=== PATIENT | female | born 1945 | race Caucasian/White ===

== ENCOUNTER → 2016-08-29 | Outpatient (CLI) | payer OTHER ==
[2016-08-29 17:22] LABS: HEMATOCRIT 39.7 % (37-47); MEAN CORPUSCULAR HEMOGLOBIN 29.7 pg (25-34); MEAN PLATELET VOLUME 11.8 fL (7.4-10.4); PLATELET COUNT 207 K/uL (130-400); RED BLOOD COUNT 4.41 M/uL (4.2-5.4); WHITE BLOOD COUNT 6.38 K/uL (4.8-10.8)
[2016-08-29 17:50] LABS: ALT/SGPT 29 U/L (12-78); AST/SGOT 16 U/L (15-37); BLOOD UREA NITROGEN 10 mg/dl (7-18); BUN/CREATININE RATIO 13.5 (10-20); CALCIUM 8.8 mg/dl (8.5-10.1); CARBON DIOXIDE 29 mmol/L (21-32); CHLORIDE 104 mmol/L (98-107); CREATININE 0.74 mg/dl (0.60-1.20); GLUCOSE 92 mg/dl (70-99); POTASSIUM 3.8 mmol/L (3.5-5.1); SODIUM 141 mmol/L (136-145); TRIGLYCERIDES 56 mg/dl (0-150); VERY LOW DENSITY LIPOPROT CALC 11 mg/dl
[2016-08-29 18:00] LABS: ALB/GLOB RATIO 1.1 (0.9-2); ALKALINE PHOSPHATASE 89 U/L (45-117); CHOLESTEROL 119 mg/dl (0-200); CHOLESTEROL/HDL RATIO 2.1; HDL CHOLESTEROL 58 mg/dl; LDL CHOLESTEROL CALCULATED 50 mg/dl; THYROID STIMULATING HORMONE 0.784 uIu/ml (0.300-4.500)
[2016-08-30 05:58] LABS: ESTIMATED AVERAGE GLUCOSE 126 mg/dl; HA1C FLAG Normal (Normal)
== END | disposition home or self-care (01) ==
LOC: C.LABBFT 13:50
PROVIDERS: ATTEND Internal Medicine
DX: J44.9 Chronic obstructive pulmonary disease, unspecified (principal); E78.00 Pure hypercholesterolemia, unspecified; R73.01 Impaired fasting glucose

== ENCOUNTER → 2016-09-17 | Outpatient (CLI) | payer OTHER ==
--- NOTE | 2016-09-18 13:03 | MAMMOGRAPHY REPORT ---
BILATERAL DIGITAL SCREENING MAMMOGRAM WITH CAD: 09/17/2016 CLINICAL HISTORY: Routine screening. Patient has no complaints. TECHNIQUE: Bilateral CC and MLO views were obtained. Current study was also evaluated with a Comput er Aided Detection (CAD) system. COMPARISON: Comparison is made to exams dated: 07/20/2015 mammogram, 07/12/2014 mammogram, and 05/30 mammogram. BREAST COMPOSITION: There are scattered areas of fibroglandular density in both breasts. FINDINGS: There are a few stable microcalcifications in the left breast. Minimal vascular calcifica tion bilaterally. No suspicious mass, architectural distortion or cluster of microcalcifications is seen. IMPRESSION: ACR BI-RADS CATEGORY 1: NEGATIVE There is no mammographic evidence of malignancy. A 1 year screening mammogram is recommended. The p atient will receive written notification of the results. Approximately 10% of breast cancers are not detected with mammography. A negative mammographic repor t should not delay biopsy if a clinically suggestive mass is present. Isabelle Forman M.D. ay/:09/17/2016 16:06:43 Book Salesman: Perri CRUZ(R)(M), [facility] letter sent: Normal 1/2 BI-RADS Code: ACR BI-RADS Category 1: Negative
== END | disposition home or self-care (01) ==
LOC: C.MAMM 15:21
PROVIDERS: ATTEND Internal Medicine
DX: Z12.31 Encounter for screening mammogram for malignant neoplasm of breast (principal)

== ENCOUNTER → 2017-01-25 | Outpatient (CLI) | payer OTHER ==
--- NOTE | 2017-01-25 13:05 | DIAGNOSTIC IMAGING REPORT ---
LEFT POPLITEAL FOSSA ULTRASOUND CLINICAL HISTORY: M71.22 Popliteal cyst, left left popliteal [id number] COMPARISON STUDY: None FINDINGS: There is a 5.7 x 2.5 x 1.0 cm left popliteal cyst. This contains a small amount of complex fluid. No associated color flow. No soft tissue masses. IMPRESSION: Slightly complex 5.7 x 2.5 x 1.0 cm left popliteal cyst. Electronically signed by: Jovanny Christopher M.D. 01/25/2017 1:03 PM Dictated Date/Time: 01/25/2017 1:02 PM
== END | disposition home or self-care (01) ==
LOC: C.ULTR 12:30
PROVIDERS: ATTEND Physician Assistant Medical
DX: M71.22 Synovial cyst of popliteal space [Baker], left knee (principal)

== ENCOUNTER → 2017-02-06 | Outpatient (CLI) | payer OTHER | END | disposition home or self-care (01) | LOC: C.RDSM 13:50 | PROVIDERS: ATTEND Family Medicine Sports Medicine | DX: M25.562 Pain in left knee (principal) ==

== ENCOUNTER → 2017-09-18 | Outpatient (CLI) | payer OTHER ==
--- NOTE | 2017-09-18 15:13 | MAMMOGRAPHY REPORT ---
BILATERAL DIGITAL SCREENING MAMMOGRAM TOMOSYNTHESIS WITH CAD: 09/18/2017 CLINICAL HISTORY: Routine screening. Patient has no complaints. TECHNIQUE: Breast tomosynthesis in addition to standard 2D mammography was performed. Current study was also evaluated with a Computer Aided Detection (CAD) system. COMPARISON: Comparison is made to exams dated: 09/17/2016 mammogram - [facility], 1 09/20/2014 mammogram, 07/12/2014 mammogram, and 06/24/2013 mammogram. BREAST COMPOSITION: There are scattered areas of fibroglandular density in both breasts. FINDINGS: There is a possible area of architectural distortion in the lateral, middle one third of t he left breast, best seen on CC tomosynthesis slice 16/73. This is not identified on the MLO tomosyn thesis images but thought to project in the lower outer quadrant based on the tomosynthesis localizer bar. Additional spot compression tomosynthesis views and possible ultrasound are recommended. No other new suspicious mass, architectural distortion or cluster of microcalcifications is seen. IMPRESSION: ACR BI-RADS CATEGORY 0: INCOMPLETE EVALUATION: NEED ADDITIONAL IMAGING EVALUATION The possible area of architectural distortion in the lateral left breast needs additional evaluation. The patient will be called to schedule an appointment. Approximately 10% of breast cancers are not detected with mammography. A negative mammographic report should not delay biopsy if a clinically suggestive mass is present. Isabelle Forman M.D. ay/:09/18/2017 12:32:15 Insurance Checker: Perri Muñiz, [facility] letter sent: Addl Imaging 0 BI-RADS Code: ACR BI-RADS Category 0: Incomplete Evaluation: Need Additional Imaging Evaluation
== END | disposition home or self-care (01) ==
LOC: C.MAMM 11:12
PROVIDERS: ATTEND Internal Medicine
DX: Z12.31 Encounter for screening mammogram for malignant neoplasm of breast (principal); R92.8 Other abnormal and inconclusive findings on diagnostic imaging of breast

== ENCOUNTER → 2017-10-02 | Outpatient (CLI) | payer OTHER ==
[2017-10-02 17:54] LABS: BASO % 0.4 %; BASO ABS # 0.04 K/uL (0-0.2); EOS % 3.6 %; EOS ABS # 0.33 K/uL (0-0.5); HEMATOCRIT 39.9 % (37-47); HEMOGLOBIN 13.1 g/dL (12.0-16.0); IG# 0.03 K/uL (0.00-0.02); LYMPH % 16.2 %; LYMPH ABS # 1.49 K/uL (1.2-3.4); MEAN CELL VOLUME 91.5 fL (80-100); MEAN CORPUSCULAR HGB CONC 32.8 g/dl (32-36); MEAN PLATELET VOLUME 10.8 fL (7.4-10.4); MONO % 9.6 %; MONO ABS # 0.88 K/uL (0.11-0.59); NEUT % 69.9 %; PLATELET COUNT 193 K/uL (130-400); RED CELL DISTRIBUTION WIDTH CV 13.2 % (11.5-14.5); RED CELL DISTRIBUTION WIDTH SD 44.1 fL (36.4-46.3); WHITE BLOOD COUNT 9.17 K/uL (4.8-10.8)
[2017-10-02 18:16] LABS: ALBUMIN 3.4 gm/dl (3.4-5.0); ALT/SGPT 24 U/L (12-78); BLOOD UREA NITROGEN 11 mg/dl (7-18); CALCIUM 9.1 mg/dl (8.5-10.1); CARBON DIOXIDE 32 mmol/L (21-32); CHOLESTEROL 112 mg/dl (0-200); CREATININE 0.68 mg/dl (0.60-1.20); GLUCOSE 91 mg/dl (70-99); SODIUM 139 mmol/L (136-145)
[2017-10-02 18:26] LABS: ALKALINE PHOSPHATASE 96 U/L (45-117); AST/SGOT 15 U/L (15-37); LDL CHOLESTEROL CALCULATED 50 mg/dl; TOTAL PROTEIN 6.8 gm/dl (6.4-8.2)
[2017-10-03 08:42] LABS: HEMOGLOBIN A1C 6.1 % (4.5-5.6)
== END | disposition home or self-care (01) ==
LOC: C.LABBFT 13:58
PROVIDERS: ATTEND Internal Medicine
DX: R73.01 Impaired fasting glucose (principal); E78.00 Pure hypercholesterolemia, unspecified

== ENCOUNTER → 2017-10-04 | Outpatient (CLI) | payer OTHER ==
--- NOTE | 2017-10-04 13:54 | MAMMOGRAPHY REPORT ---
UNILATERAL LEFT DIGITAL DIAGNOSTIC MAMMOGRAM TOMOSYNTHESIS AND TARGETED LEFT ULTRASOUND: 10/04/2017 CLINICAL HISTORY: Callback from screening mammogram for possible left breast architectural distortion . TECHNIQUE: Breast tomosynthesis in addition to standard 2D mammography was performed. Spot compress ion left CC and MLO 2D and tomosynthesis images were obtained. COMPARISON: Comparison is made to exams dated: 09/18/2017 mammogram, 09/17/2016 mammogram - [facility], 07/20/2015 mammogram, and 07/12/2014 mammogram. BREAST COMPOSITION: There are scattered areas of fibroglandular density in the left breast. FINDINGS: The spot compression views demonstrate a persistent subtle area of architectural distortion seen within the left lateral breast on the CC tomosynthesis images (slice 14/71), possibly projectin g in the superior breast on the MLO view (slice 15/84). Targeted ultrasound was performed of the left lateral breast in the region of the mammographic distor tion. In the left breast at 3:00, approximately 7 cm from the nipple, there is a subtle hypoechoic n on-circumscribed 3 x 4 x 3 mm mass with associated architectural distortion. This corresponds with t he mammographic architectural distortion and is indeterminant. Recommend ultrasound-guided core need le biopsy for further evaluation. IMPRESSION: ACR BI-RADS CATEGORY 4: SUSPICIOUS, TARGETED ULTRASOUND ACR BI-RADS CATEGORY 4: SUSPICIO US Persistent subtle architectural distortion seen mammographically in the left lateral breast on the ad ditional views. A corresponding 4 mm hypoechoic mass with associated architectural distortion is see n within the left 3:00 breast on ultrasound. Findings are indeterminate and ultrasound-guided core n eedle biopsy is recommended for further evaluation. The differential includes radial scar versus mal ignancy. A phone call was made to the physician's office to confirm faxed results were received. The patient has been verbally notified of the results. I will leave it up to the patient's referring provider if she can safely discontinue baby aspirin for 5-7 days prior to the procedure. Approximately 10% of breast cancers are not detected with mammography. A negative mammographic report should not delay biopsy if a clinically suggestive mass is present. Shauna Davila M.D. ah/:10/04/2017 10:27:03 Concrete Saw Operator: Perri CRUZ(Ky)(M), [facility] letter sent: Abnormal / BI-RADS Code: ACR BI-RADS Category 4: Suspicious Ultrasound BI-RADS: ACR BI-RADS Category 4: Suspici ous
== END | disposition home or self-care (01) ==
LOC: C.MAMM 09:48
PROVIDERS: ATTEND Internal Medicine
DX: R92.8 Other abnormal and inconclusive findings on diagnostic imaging of breast (principal); N63.20 Unspecified lump in the left breast, unspecified quadrant

== ENCOUNTER → 2017-10-09 | Outpatient (CLI) | payer OTHER ==
--- NOTE | 2017-10-09 10:41 | Discharge Instructions ---
Discharge Instructions Procedure Procedure Date: Oct 09, 2017. Reason for visit: Left Distortion. Discharge Discharge Date: Oct 09, 2017. Discharge Diagnosis: post left breast ultrasound guided core biopsy Medications Restart Stopped Medication(s): May restart Aspirin today Instructions Activity Recommendations: Additional Limitations (see below) Return to School/Work: no limitations Recommended Home Diet: No Limitations Provider Instructions: ACTIVITY RECOMMENDATIONS: * No lifting, pushing, pulling or exercising the affected side for three days. RETURN TO SCHOOL/WORK: * You may return to work/school after the procedure, but do not perform any strenuous activities for 24 to 48 hours. MEDICATIONS: * Tylenol (two 325 mg) every four to six hours if needed for mild pain (if not allergic to Tylenol). DIET: * Resume previous diet. SPECIAL CARE INSTRUCTIONS: * Keep biopsy site dry for 24 hours. May shower after 24 hours, but do not soak (bathe) incision. * May remove Tegaderm (plastic patch) tomorrow AFTER showering. * Leave the steri-strips on for one week. Allow the steri-strips to fall off by themselves. If not off after one week, you may remove them. You may place a Bandaid crosswise over the strips, if desired. * Apply ice 10 minutes on and 10 minutes off as needed. * Wear a bra at bedtime to sleep more comfortably for 2-3 days. * Your referring physician should have the results after approximately 5 to 7 business days. * Call for unusual bleeding, fever, drainage, etc or if you have any questions call [phone] during normal business hours or after hours call Dr Forman, . FOLLOW UP VISIT: Follow-up with Referring Physician as scheduled. Kathleen Cunha Recommendations: Call your doctor if: * Temperature above 101 degrees * Pain not relieved by pain medicine ordered * There is increased drainage or redness from any incision * You have any unanswered questions or concerns. Your Doctors Instructions noted above were prepared by provider Isabelle Forman. Patient Signature Section: Patient Instructions Signature Page Domenica Gordillo Patient (or Guardian) Signature/Date: I have read and understand the instructions given to me by my caregivers. Caregiver/RN/Doctor Signature/Date: The above-named patient and/or guardian has received patient instructions on this date. + Original Patient Signature Page (only) stays with chart. Please make copy for patient.
--- NOTE | 2017-10-09 15:34 | MAMMOGRAPHY REPORT ---
ULTRASOUND GUIDED BIOPSY LEFT BREAST: 10/09/2017 CLINICAL HISTORY: 72-year-old woman presents for biopsy of a 4 mm mass with associated architectural distortion in the 3:00 left breast, correlating with a focal area of mammographic distortion. COMPARISON: Comparison is made to exams dated: 10/04/2017 mammogram, 10/04/2017 ultrasound, 09/18/2017 ma mmogram - [facility], 07/20/2015 mammogram, 09/17/2016 mammogram - [facility], and 07/12/2014 mammogram. PATIENT CONSENT: The procedure, risks and benefits were discussed with the patient and informed conse nt was obtained both verbally and in writing. Specific risks to this procedure include: bleeding, in fection, puncture of adjacent structure, nontarget biopsy, sampling error, pain, metal allergy and me dication reaction. PROCEDURE DESCRIPTION: A time out was performed and the left breast was agreed as the site of biopsy. The skin was prepped and draped in the usual sterile fashion. The subtle irregular 4 mm isoechoic ma ss with associated architectural distortion in the 3:00 left breast was chosen as the target for biop sy. Subcutaneous and intraparenchymal 1% buffered lidocaine, with and without epinephrine, was admini stered as local anesthesia. A skin incision was made. Through the incision, for samples were taken w ith a 12 gauge Celero biopsy device. A ribbon shaped metallic marker was placed at the biopsy site. H emostasis was achieved after manual compression. The patient tolerated the procedure well and there w as no immediate complication. The samples were sent to the pathology department in an appropriately labeled container. Postprocedure left CC and MLO tomosynthesis images were obtained. The ML view is slightly degraded b y patient motion. However, based on the CC projection, the biopsy marker clip aligns with the focal mammographic distortion in question. No significant postbiopsy hematoma is seen. IMPRESSION: ULTRASOUND GUIDED BIOPSY Status post ultrasound-guided core biopsy of a subtle 4 mm mass with associated architectural distort ion in the 3:00 left breast, with ribbon-shaped biopsy marker clip placed at the site. The patient will receive notification of the biopsy results from her referring physician. Isabelle Forman M.D. ay/:10/09/2017 13:27:09 Cash Register Operator: Linda INGRAM)(Raya), [facility]
--- NOTE | 2017-10-09 15:38 | MAMMOGRAPHY REPORT ---
UNILATERAL LEFT DIGITAL DIAGNOSTIC MAMMOGRAM TOMOSYNTHESIS: 10/09/2017 CLINICAL HISTORY: Status post ultrasound-guided core biopsy of a small, subtle focal area of architec tural distortion in the 3:00 left breast, 7 cm from the nipple. Please refer to the report from left breast ultrasound-guided core biopsy performed at the same time for full detail. IMPRESSION: POST PROCEDURE IMAGING FOR MARKER PLACEMENT Please refer to the report from left breast ultrasound-guided core biopsy performed at the same time for full detail. Approximately 10% of breast cancers are not detected with mammography. A negative mammographic report should not delay biopsy if a clinically suggestive mass is present. Isabelle Forman M.D. ay/:10/09/2017 10:43:28 Internal Medicine Physician Assistant: Olivia INGRAM)(Raya), [facility] BI-RADS Code: Post Procedure Imaging For Marker Placement
== END | disposition home or self-care (01) ==
LOC: C.MAMM 09:50
PROVIDERS: ATTEND Internal Medicine
DX: R92.8 Other abnormal and inconclusive findings on diagnostic imaging of breast (principal); N64.89 Other specified disorders of breast; N60.92 Unspecified benign mammary dysplasia of left breast

== ENCOUNTER 2017-11-04 08:15 | Inpatient (IN) | payer OTHER ==
[2017-11-01 09:23] VITALS: BMI 41.0
--- NOTE | 2017-11-01 10:04 | PAT Medication Instructions ---
Service Date Nov 01, 2017. Current Home Medication List Acetaminophen (Tylenol), 1,000 MG PO PRN Alendronate/Cholecalciferol (Fosamax+D 70MG/2800 Iu), 1 TABLET PO WK Aspirin (Aspirin Ec), 81 MG PO QAM Atorvastatin (Lipitor), 20 MG PO QAM Calcium Carbonate-Cholecalcife (Caltrate 600+D), 1 TAB PO QAM Fluticasone Prop/Salmeterol (Advair Diskus 500/50 60 Dose), 1 PUFF INH QAM Home O2 Therapy (Oxygen), 2 LITERS NA HS Hydroxyzine Pamoate (Vistaril), 1 CAP PO Q6H PRN for RN Ipratropium Lizemores (Ipratropium Lizemores), 1 VIAL NEB QID Lorazepam (Ativan), 0.5 MG PO prn Metoprolol Succ (Toprol Xl) (Toprol-Xl ), 100 MG PO BID Multivitamin (Multivitamin), 1 TAB PO QAM Omeprazole (Prilosec), 20 MG PO QAM Oxybutynin Chloride (Ditropan), 1 TAB PO BID Medication Instructions For Your Scheduled Surgery -Continue as directed: Alendronate/Cholecalciferol (Fosamax+D 70MG/2800 Iu), 1 TABLET PO WK -Follow your surgeon and primary care doctor's instructions for: Aspirin (Aspirin Ec), 81 MG PO QAM - Hold the following medications the morning of surgery: Calcium Carbonate-Cholecalcife (Caltrate 600+D), 1 TAB PO QAM Multivitamin (Multivitamin), 1 TAB PO QAM Oxybutynin Chloride (Ditropan), 1 TAB PO BID - Take the following medications the morning of surgery with a sip of water: Acetaminophen (Tylenol), 1,000 MG PO PRN (if needed, can be taken up to four hours before surgery) Atorvastatin (Lipitor), 20 MG PO QAM Fluticasone Prop/Salmeterol (Advair Diskus 500/50 60 Dose), 1 PUFF INH QAM Hydroxyzine Pamoate (Vistaril), 1 CAP PO Q6H PRN (if needed) Ipratropium Lizemores (Ipratropium Lizemores), 1 VIAL NEB QID Lorazepam (Ativan), 0.5 MG PO prn (if needed) Metoprolol Succ (Toprol Xl) (Toprol-Xl ), 100 MG PO BID Omeprazole (Prilosec), 20 MG PO QAM - Take the following medications as scheduled the night before surgery: Acetaminophen (Tylenol), 1,000 MG PO PRN (if needed) Home O2 Therapy (Oxygen), 2 LITERS NA HS Hydroxyzine Pamoate (Vistaril), 1 CAP PO Q6H PRN (if needed) Ipratropium Lizemores (Ipratropium Lizemores), 1 VIAL NEB QID Lorazepam (Ativan), 0.5 MG PO prn (if needed) Metoprolol Succ (Toprol Xl) (Toprol-Xl ), 100 MG PO BID Oxybutynin Chloride (Ditropan), 1 TAB PO BID If you have any questions please call us at [phone] or [phone] or [phone]
--- NOTE | 2017-11-01 11:16 | DIAGNOSTIC IMAGING REPORT ---
TWO VIEW CHEST CLINICAL HISTORY: Preoperative examination. FINDINGS: PA and lateral chest radiographs are obtained. No prior studies are available for comparison at the time of dictation. The examination is degraded by portable technique and patient rotation. The heart is enlarged and there is atherosclerotic calcification of the thoracic aorta. The pulmonary vasculature is noncongested. Interstitial thickening is nonspecific and likely chronic. Linear atelectasis is seen at the left lung base. Atelectasis is also suggested at the right lung base. No airspace consolidation is seen typical for pneumonia and there is no large pleural effusion. There is no pneumothorax. The skeletal structures are osteopenic. The bony thorax appears intact. IMPRESSION: Cardiomegaly with no active disease in the chest. Electronically signed by: Kwame Short M.D. 11/01/2017 11:15 AM Dictated Date/Time: 11/01/2017 11:14 AM
[~2017-11-04] VITALS: Ht 152.4 cm; Wt 93.6 kg
[2017-11-04] VITALS (12 sets, daily range): BP systolic 143–187; BP diastolic 54–93; PULSE 54–69; TEMP 36.5–37.1; O2SAT 88–98; Ht 152.4 cm; Wt 93.6 kg
[~2017-11-04 08:15] MED LIST: ACET-1256 PO; ADVIN50/60 INH; ASPI81TA28 PO; ATOR-22 PO; ATRINS NEB; CALC-354 PO; CEFAZOLIN 2000MG IV PUSH 15 ML IV SCH; DTR/5 PO; FSMD/70 PO; HYDR25CA PO; LACTATED RINGER'S 1000ML 1,000 ML IV SCH; LORA-741 PO; METO100T44 PO; MULT-506 PO; OXGN; PRLSR20 PO
[2017-11-04] MEDS ORDERED: FENTANYL CITRATE INJ 50 MCG/1 ML 2 ML VIAL ONE ×3 (11:09→14:10)
[2017-11-04] MEDS ORDERED: MIDAZOLAM HCL 1 MG/ML 2ML VIAL ONE (11:09)
--- NOTE | 2017-11-04 11:22 | History & Physical Bridge Note ---
H&P Re-Evaluation Bridge Note: I have examined the patient, reviewed the History & Physical and in the interval since the performance of the History & Physical I have noted the following changes of clinical significance: Wire localization performed, films reviewed. Patient had pre op clearance by PCP and no issues identified, however anesthesia concerned due to history of chest discomfort with activity. Cardiology consulted, JL Solis assessed and echo performed, deemed appropriate risk for surgery. No other changes noted
[2017-11-04] MEDS ORDERED: BUPIVACAINE 0.5 % 5 MG/1 ML MPF 30ML VIAL ONE (12:31)
[2017-11-04] MEDS ORDERED: SODIUM CHLORIDE 0.9% PF 50 ML VIAL ONE (12:32)
[2017-11-04] MEDS ORDERED: PERFLUTREN LIPID MICROSPHERE (DEFINITY) IV ONE (12:36)
[2017-11-04] MEDS ORDERED: HYDR-5688 PO (12:37)
--- NOTE | 2017-11-04 12:40 | Discharge Instructions ---
Discharge Instructions Date of Service Nov 04, 2017. Admission Reason for Admission: Left Breast Radial Scar W/Hosp Loc Discharge Discharge Diagnosis / Problem: left needle localization Discharge Goals Goal(s): Diagnostic testing Activity Recommendations Activity Limitations: resume your previous activity Shower/Bathe: no limitations . Instructions / Follow-Up Instructions / Follow-Up Dr. Estrada in 1-2 weeks as planned, call [phone] if you have any questions Current Hospital Diet Patient's current hospital diet: Discharge Diet Recommended Diet: Regular Diet Pending Studies Studies pending at discharge: yes List of pending studies: pathology Laboratory Results Hemoglobin A1c Test 10/02/17 14:00 Range/Units Estimated Average Glucose 128 mg/dl Hemoglobin A1c 6.1 H 4.5-5.6 % Lipid Panel Test 10/02/17 14:00 Range/Units Triglycerides Level 65 0-150 mg/dl Cholesterol Level 112 0-200 mg/dl HDL Cholesterol 49 mg/dl Cholesterol/HDL Ratio 2.3 LDL Cholesterol, Calculated 50 mg/dl Medical Emergencies . Who to Call and When: Medical Emergencies: If at any time you feel your situation is an emergency, please call 911 immediately. . Non-Emergent Contact Non-Emergency issues call your: Surgeon Call Non-Emergent contact if: you have a fever, temperature is above 101.5, your pain is not controlled, wound has increased redness, you have any medication questions . "Provider Documentation" section prepared by Patrick Mcmillan. .
[2017-11-04] MEDS ORDERED: ALBUT/IPRATROP 3MG/0.5MG NEB 3 ML VIAL INH ONE (12:45)
--- NOTE | 2017-11-04 13:01 | ECHOCARDIOGRAM REPORT ---
*NOTICE TO RECEIVING LIBERTARIAN AGENCY This information is strictly Confidential and protected under [place] law. [place] law prohibits you from making any further disclosure of this information unless further disclosure is expressly permitted by the written consent of the person to whom it pertains or is authorized by law. A general authorization for the release of medical or other information is not sufficient for this purpose. Hospital accepts no responsibility if the information is made available to any other person, INCLUDING THE PATIENT. Interpretation Summary * Name: DEVEN DE LOS SANTOS Study Date: 11/04/2017 11:59 AM BP: 143/54 mmHg * Patient Location: [facility] HR: 58 * : 1945 (M/d/yyyy) Gender: Female Height: 60 in * Age: 72 yrs Ethnicity: CA Weight: 212 lb * Ordering Physician: Adonis Garcia * Referring Physician: Robin Estrada * Performed By: Manuela Guajardo RDCS * * Reason For Study: CHEST PAIN- PRE OP * BSA: 1.9 m2 * -- Conclusions -- * Technically limited. Images obtained in the upgright position. * There is mild concentric left ventricular hypertrophy. * Left ventricular systolic function is normal. * Aortic valve sclerosis moderate, without significant aortic valvular stenosis. Procedure Details * A complete two-dimensional transthoracic echocardiogram was performed (2D, M-mode, Doppler and color flow Doppler). * The study was technically limited. * The study was technically difficult. * There were technical limitations due to patient'sbody habitus * A contrast injection of Definity was performed to improve assessment of LV function. * Contrast was injected into an intravenous site in the left arm. * One vial of Definity ultrasound contrast was diluted in normal saline to a total volume of 10 ml. A total of '3.5' ml of solution was administered during imaging. * Lot # [id number] of Definity utilized for procedure. * Expiration date 11/14. * The attending nurse who injected the contrast agent was RENA BEDOYA RN. * Technically limited. Images obtained in the upgright position. Left Ventricle * The left ventricle is grossly normal size. * There is mild concentric left ventricular hypertrophy. * Ejection Fraction = 55-60%. * Left ventricular systolic function is normal. * The left ventricular wall motion is normal. Right Ventricle * The right ventricle is not well visualized. Mitral Valve * The mitral valve is grossly normal. * Significant mitral regurgitation is absent. Aortic Valve * Aortic valve sclerosis moderate, without significant aortic valvular stenosis. * The aortic valve is not well visualized. * Trace aortic regurgitation. Pericardium/Pleural * There is no pericardial effusion. Great Vessels * Normal inferior vena cava diameter and respiratory variation suggests normal central venous pressure. MMode 2D Measurements and Calculations IVSd 1.3 cm IVSs 1.8 cm LVIDd 4.2 cm LVIDs 3.0 cm LVPWd 1.3 cm LVPWs 1.8 cm IVS/LVPW 0.94 FS 28.3 % EDV(Teich) 79.8 ml ESV(Teich) 35.9 ml EF(Teich) 55.0 % EDV(cubed) 75.6 ml ESV(cubed) 27.9 ml EF(cubed) 63.1 % % IVS thick 44.3 % % LVPW thick 36.7 % LV mass(C)d 200.2 grams LV mass(C)dI 104.6 grams/m\S\2 LV mass(C)s 222.4 grams LV mass(C)sI 116.2 grams/m\S\2 SV(Teich) 43.9 ml SI(Teich) 22.9 ml/m\S\2 SV(cubed) 47.7 ml SI(cubed) 24.9 ml/m\S\2 ACS 0.78 cm asc Aorta Diam 3.4 cm LVOT diam 1.8 cm LVOT area 2.5 cm\S\2 LVAd ap4 26.4 cm\S\2 LVLd ap4 6.9 cm EDV(MOD-sp4) 85.0 ml EDV(sp4-el) 85.3 ml LVAs ap4 15.8 cm\S\2 LVLs ap4 6.4 cm ESV(MOD-sp4) 33.8 ml ESV(sp4-el) 33.1 ml EF(MOD-sp4) 60.2 % EF(sp4-el) 61.1 % LVAd ap2 26.5 cm\S\2 LVLd ap2 7.2 cm EDV(MOD-sp2) 79.9 ml EDV(sp2-el) 82.3 ml LVAs ap2 15.5 cm\S\2 LVLs ap2 5.9 cm ESV(MOD-sp2) 34.6 ml ESV(sp2-el) 34.9 ml EF(MOD-sp2) 56.7 % EF(sp2-el) 57.6 % LVLd %diff 4.1 % EDV(MOD-bp) 83.7 ml LVLs %diff -9.28 % ESV(MOD-bp) 35.6 ml EF(MOD-bp) 57.5 % SV(MOD-sp4) 51.1 ml SI(MOD-sp4) 26.7 ml/m\S\2 SV(MOD-sp2) 45.3 ml SI(MOD-sp2) 23.7 ml/m\S\2 SV(MOD-bp) 48.2 ml SI(MOD-bp) 25.2 ml/m\S\2 SV(sp4-el) 52.1 ml SI(sp4-el) 27.3 ml/m\S\2 SV(sp2-el) 47.4 ml SI(sp2-el) 24.8 ml/m\S\2 Doppler Measurements and Calculations MV E max vickie 99.3 cm/sec MV A max vickie 43.7 cm/sec MV E/A 2.3 MV dec time 0.19 sec Ao V2 max 201.3 cm/sec Ao max PG 16.6 mmHg Ao max PG (full) 14.0 mmHg Ao V2 mean 140.7 cm/sec Ao mean PG 9.3 mmHg Ao V2 VTI 52.1 cm TAY(V,A) 10 cm\S\2 TAY(V,D) 10 cm\S\2 AI max vickie 192.4 cm/sec AI max PG 14.8 mmHg AI dec slope 105.6 cm/sec\S\2 AI P1/2t 533.6 msec LV V1 max PG 2.6 mmHg LV V1 max 80.9 cm/sec PA V2 max 71.2 cm/sec PA max PG 2.0 mmHg
[2017-11-04] MEDS ORDERED: ROCURONIUM BROMIDE 10 MG/ML 5 ML VIAL IV ONE (13:34)
[2017-11-04] MEDS ORDERED: DEXAMETHASONE SOD INJ 4 MG/ML VIAL ONE (13:34)
[2017-11-04] MEDS ORDERED: SUCCINYLCHOLINE CHLORIDE 20 MG/ML 10 ML VIAL IV ONE (13:34)
[2017-11-04] MEDS ORDERED: ALBUTEROL HFA INHALER 8.5 GM INH ONE (13:34)
--- NOTE | 2017-11-04 13:47 | [facility] Post Operative Brief Note ---
Immediate Operative Summary Operative Date Nov 04, 2017. Pre-Operative Diagnosis Left breast mass Post-Operative Diagnosis Same as preop Procedure(s) Performed Left Breast Wire-Localized Excisional Biopsy Surgeon Dr. Estrada Geographic Information System Analyst Surgeon(s) Moy Wakefield PA-C Estimated Blood Loss 4 cc Findings Consistent with Post-Op Diagnosis Radiology confirmed excision of specimen on x-ray Specimens A: left breast mass- short stitch superior, long stitch lateral (fresh specimen) Drains None Anesthesia Type General Complication(s) none Disposition Accompanied Pt To Recover: no Disposition: Recovery Room / PACU
--- NOTE | 2017-11-04 13:52 | [facility] Operative Report ---
Operative Report Operative Date Nov 04, 2017. Pre-Operative Diagnosis Left breast mass, radial scar Post-Operative Diagnosis Same Procedure(s) Performed Left breast wire localized excisional biopsy Surgeon Dr. Estrada Part Time Flexible Clerk Surgeon(s) Moy Wakefield PA-C Estimated Blood Loss 4 cc Findings Radiology confirmed excision of wire, clip, and specimen on x-ray. Good hemostasis. Specimens A: left breast mass- short stitch superior, long stitch lateral (fresh specimen) Drains None Anesthesia GETA Complication(s) None Disposition Recovery Room / PACU Indications 72-year-old female with left breast mass identified on imaging, core needle biopsy showed radial scar, plan for a left breast wire localized excisional biopsy. The patient had preoperative risk assessment by primary care, however upon arrival to preop there was concern about exertional chest pain. Cardiology consult was obtained prior to surgery. Echocardiogram was performed and cardiology deemed an appropriate risk for surgery without further testing. The risks of the procedure were discussed, all questions were answered, and the patient agreed to proceed with surgery as planned. Description of Procedure The patient had a localization wire placed in radiology prior to surgery. The films were reviewed for incisional planning. The patient was properly identified, consented, and taken to the operating room where she was placed in the supine position. General endotracheal anesthesia was induced. SCDs and a safety belt were placed. Preoperative antibiotics were administered. The patient's bilateral chest was prepped and draped in the standard sterile fashion. Surgical timeout was performed and all parties were in agreement that this was the correct patient and procedure to be performed and we continued as planned. A transverse incision was made on the left and deepened down through the subcutaneous tissue with electrocautery. Flaps were raised in all directions. Wire was delivered into the incision. The breast mass was circumferentially dissected, excised, and passed off the table as specimen. The specimen was oriented. A mammogram was performed of the specimen in radiology and confirmed excision of the wire, clip, and previously imaged abnormality. The wound was irrigated and hemostasis was confirmed. The skin was closed with interrupted 3- 0 Vicryl deep dermal sutures, followed by 4-0 Monocryl running subcuticular suture. Dermabond was placed over the wound. The patient was extubated in the operating room and taken to the PACU where she recovered without apparent incident. All sponge, instrument and needle counts were correct at the conclusion of the procedure. The patient tolerated the procedure well. The physician's medical assistant secretary was present and scrubbed for the entirety of the case. He was essential in positioning the patient, prepping and draping, retraction and exposure, removal of the specimen, closure of the incision, placement of the dressings. I attest to the content of the Intraoperative Record and any orders documented therein. Any exceptions are noted below.
[2017-11-04] MEDS ORDERED: MoRPHine SULFATE 4 MG/ML 1 ML CARP\\VIAL IV PRN (14:00)
[2017-11-04] MEDS ORDERED: ONDANSETRON INJ 2 MG/ML 2 ML VIAL IV PRN ×4 (14:00→21:30)
[2017-11-04] MEDS ORDERED: OXYCODONE/ACETAMINOPHEN 5-325 TAB PO PRN (14:00)
--- NOTE | 2017-11-04 14:01 | CARDIOLOGY CONSULTATION REPORT ---
DATE OF CONSULTATION: 11/04/2017 REASON FOR CONSULTATION: 1. Dyspnea on exertion. 2. Bilateral arm pain with exertion. 3. Cardiac risk factors. 4. Preoperative cardiac evaluation. HISTORY OF PRESENT ILLNESS: Mrs. Gordillo is an obese 72-year-old white female with a history of Hypertension, Hypercholesterolemia, Impaired Fasting Glucose, and COPD (requiring nocturnal oxygen) who presents today for a fine needle aspiration/biopsy of the left breast. Her surgeon is Dr. Estrada. We were consulted because of patient's chronic dyspnea on exertion, and she mentioned some chest pain/bilateral arm pain to Dr. Pichardo, the anesthesiologist. Patient has been limited by chronic dyspnea on exertion related COPD for years now. Over the past 6-12 months, she may be more short-winded than she had been previously, and she does admit to some exertional bilateral arm pain and generalized weakness. Patient states that she gets her shortness of breath if she has to walk a long distance; for example walking from [facility] to the parking lot would produce shortness of breath which would take 10-15 minutes to recover from. As far as the bilateral exertional arm pain, patient is able to walk up her handicap ramp at home, but notices some arm pain if she has to carry something up the ramp. She also notices this when she is running the vacuum shoe cleaner. She will get some arm discomfort bilaterally which does not radiate elsewhere, and is without any associated symptoms. She specifically denies any associated nausea, vomiting, diaphoresis. These symptoms also last for 10-15 minutes and then resolve with resting. Patient had a negative stress test about 5 years ago in [place]. She has never had a cardiac catheterization. Patient specifically denies any exertional chest pain, heaviness, tightness, or pressure. Denies any exertional neck, jaw, or back pain. She denies any shortness of breath at rest, orthopnea, or PND. No palpitations, syncope, or near syncope. MEDICATIONS AT HOME: 1. Lorazepam 0.5 mg daily p.r.n. for anxiety. 2. Advair Diskus 500/50. 3. DuoNeb nebulizers 4 times a day. 4. Omeprazole 20 mg daily. 5. Aspirin 81 mg daily. 6. Calcium with Vitamin D 600 mg. 7. Centrum silver. 8. Atorvastatin 20 mg daily. 9. Metoprolol succinate ER 100 mg b.i.d. 10. Alendronate sodium 70 mg weekly. 11. Oxybutynin 5 mg b.i.d. 12. Hydroxyzine 25 mg every 6 hours as needed. ALLERGIES: TRAMADOL. PAST MEDICAL HISTORY: 1. Hypertension. 2. COPD (wears oxygen at night). 3. Dyslipidemia. 4. Impaired fasting glucose. 5. Urinary incontinence. 6. Osteoarthritis. 7. Osteoporosis. 8. Left popliteal cyst. 9. History of urticaria. 10. Anxiety. 11. History of abnormal mammogram. 12. Gastroesophageal reflux disease. 13. Status post appendectomy. 14. History of hernia repair. 15. Status post hysterectomy. 16. History of dental surgery. 17. Status post tonsillectomy. SOCIAL HISTORY: Patient is , lives in [place], [place]. Previously a smoker, quit 6 years ago after her family had an intervention with her. FAMILY HISTORY: Significant for coronary artery disease, aneurysm, hypertension, diabetes mellitus, lung cancer, and breast cancer. PHYSICAL EXAMINATION: VITAL SIGNS: Temperature is 37 degrees Celsius, pulse 50 and regular, respiratory rate is 16 and unlabored, blood pressure is 143/54, SpO2 is 94% on room air. GENERAL: Patient is in no acute distress. HEENT: Head is atraumatic, normocephalic. EOM is intact. Sclera anicteric. Facies symmetric. No perioral cyanosis. Mucous membranes moist. NECK: Without JVD. Carotid upstrokes +2 bilaterally. CHEST AND LUNGS: Are with distant breath sounds throughout. No obvious wheezes, rales, or rhonchi. CARDIOVASCULAR: S1 and S2 are regular with grade 2/6 basal systolic murmur best heard over the right second intercostal space, it radiates to the left sternal border. Aortic valve closure sound is mildly diminished. No diastolic murmurs appreciated. No obvious gallops or rubs. PMI is nonpalpable. No lifts, heaves, or thrills. No abdominal, aortic, or renal bruits. ABDOMINAL: Bowel sounds present. No masses, organomegaly, or tenderness. EXTREMITIES: Without clubbing or cyanosis. Trace bipedal edema is present. NEUROLOGIC: Patient is awake, alert, and interactive. Answers questions appropriately. Speech is clear. Follows commands. Normal movement in bilateral upper extremities. Gait pattern is not assessed. Echocardiogram is pending. ASSESSMENT: 1. Dyspnea on Exertion -- likely secondary to COPD. 2. Heart murmur, evaluation underway. It sounds as though it is an aortic stenosis murmur. 3. Exertional bilateral arm pain in a patient with multiple cardiac risk factors. 4. Normal EKG tracing. 5. Severe chronic obstructive pulmonary disease, uses nocturnal oxygen. 6. Hypertension. 7. Dyslipidemia. 8. Impaired fasting glucose. PLAN: 1. Patient is undergoing a relatively fast procedure with Dr. Estrada with a biopsy of breast tissue under general anesthesia. 2. Patient does have multiple cardiac risk factors. It would be reasonable to do an echocardiogram to evaluate LV systolic function, LV wall thickness, and to evaluate her aortic murmur. 3. If her EF is normal, and no significant valvular disease - patient is a [id number] surgical risk for her procedure. She has already taken her metoprolol this morning which will provide some cardioprotective benefit. 4. If any wall motion abnormalities, or reduced EF would consider further ischemic workup prior to proceeding with surgery. 5. Further recommendations pending the outcome of Echocardiogram. Agree with above. Sukh Jacobs MD [facility]
[2017-11-04] MEDS ORDERED: EpHEDrine SULFATE INJ 50 MG/ML AMP IV PRN (14:15)
[2017-11-04] MEDS ORDERED: FENTANYL CITRATE INJ 50 MCG/1 ML 2 ML VIAL IV PRN (14:15)
[2017-11-04] MEDS ORDERED: ATROPINE SULFATE 0.1 MG/ML 5ML SYR IV PRN (14:15)
--- NOTE | 2017-11-04 18:37 | Anesthesiology Progress Note ---
Anesthesia Post Op Note Date & Time Nov 04, 2017 at 15:26 Vital Signs Pain Intensity: 1 Vital Signs Past 12 Hours Date Time Temp Pulse Resp B/P (MAP) Pulse Ox O2 Delivery O2 Flow Rate FiO2 11/04/17 15:21 54 16 126/63 94 11/04/17 15:21 55 16 11/04/17 15:21 56 16 92 Nasal Cannula 2.0 11/04/17 15:16 54 20 11/04/17 15:16 54 20 155/76 93 11/04/17 15:11 55 20 11/04/17 15:11 54 20 92 11/04/17 15:10 154/71 11/04/17 15:06 52 19 95 11/04/17 15:06 51 19 11/04/17 15:05 134/71 11/04/17 15:01 54 17 11/04/17 15:01 55 17 139/70 93 11/04/17 14:56 57 16 11/04/17 14:56 58 16 92 11/04/17 14:55 146/68 11/04/17 14:51 53 15 136/78 95 11/04/17 14:51 53 15 11/04/17 14:46 55 26 94 11/04/17 14:46 55 26 11/04/17 14:45 148/69 11/04/17 14:41 55 19 93 11/04/17 14:41 55 19 11/04/17 14:40 53 16 145/70 92 11/04/17 14:40 54 16 11/04/17 14:39 37.1 55 20 145/70 (102) 94 Oxymask 2 11/04/17 14:36 135/71 11/04/17 14:35 53 14 11/04/17 14:35 14 11/04/17 14:31 153/75 11/04/17 14:30 56 15 94 11/04/17 14:30 55 15 11/04/17 14:29 166/68 11/04/17 14:29 166/68 11/04/17 14:28 58 14 11/04/17 14:28 57 14 98 11/04/17 14:28 57 14 98 11/04/17 14:28 58 14 11/04/17 14:26 166/68 11/04/17 14:26 166/68 11/04/17 14:23 61 17 11/04/17 14:23 59 17 99 11/04/17 14:23 61 17 11/04/17 14:23 59 17 99 11/04/17 14:21 146/72 11/04/17 14:21 146/72 11/04/17 14:18 79 14 99 11/04/17 14:18 79 14 99 11/04/17 14:18 67 14 11/04/17 14:18 67 14 11/04/17 14:15 166/102 11/04/17 14:15 166/102 11/04/17 14:13 68 19 99 11/04/17 14:13 68 19 99 11/04/17 14:13 69 19 11/04/17 14:13 69 19 11/04/17 14:11 171/110 11/04/17 14:11 171/110 11/04/17 14:08 71 20 11/04/17 14:08 71 20 98 11/04/17 14:08 71 20 98 11/04/17 14:08 71 20 11/04/17 14:06 167/71 11/04/17 14:06 167/71 11/04/17 14:04 150/81 11/04/17 14:04 150/81 11/04/17 14:03 36.2 71 12 150/81 (124) 97 Oxymask 10 11/04/17 14:03 72 18 98 11/04/17 14:03 72 18 98 11/04/17 14:03 71 18 11/04/17 14:03 71 18 11/04/17 12:49 69 20 91 Room Air 11/04/17 09:37 37 58 20 143/54 (83) 94 Room Air Notes Mental Status: alert / awake / arousable, participated in evaluation Pt Amnestic to Procedure: Yes Nausea / Vomiting: adequately controlled Pain: adequately controlled Airway Patency, RR, SpO2: stable & adequate BP & HR: stable & adequate Hydration State: stable & adequate Anesthetic Complications: no major complications apparent The patient is a 72 y/o female with a h/o HTN, DLD, COPD on 2l 02NC at night, CKD and morbid obesity s/p L breast lumpectomy. The patient stated preoperatively that she has become more short of breath and has had occasional chest/arm pain with exertion in the last six months. She has not had any cardiac work up in the last 4-5 years. Therefore, cardiology was consulted and Adonis Smart came to the bedside to evaluate the patient. A bedside echo was done and per Adonis showed normal EF with no WMA with mild to moderate . He stated that given the nature of the surgery that the patient was at an acceptable cardiac risk to proceed without further testing. The patient was found to be wheezing preoperatively which is typical for her. She uses a nebulizer every four hours at home. She was saturating 94% on RA. She was given a Duoneb preoperatively. I explained to the patient and her son that she may require admission postoperatively given her extensive pulmonary disease. The patient was place under GA for the procedure. She did well intraoperatively although she did require some Albuterol intraoperatively for wheezing. In recovery, the patient was awake and comfortable. She was given an incentive spirometer and another Duoneb treatment for wheezing. She was saturating 94-96% on 2l nc and was sent to phase II recovery. In phase II recovery, the patient was unable to wean from her oxygen. She would drop down to 80% on RA with ambulation and was 88-91% at rest. I spoke to Dr. Estrada who was agreeable to having the patient admitted overnight. The patient and her son were also agreeable. The hospitalist was called and came to the bedside to evaluate the patient.
[2017-11-04] MEDS ORDERED: POLYETHYLENE (MIRALAX) 17 GM PACK PO PRN ×2 (20:15→21:30)
[2017-11-04] MEDS ORDERED: NITROGLYCERIN 0.4 MG SL PER TAB CHARGE SL PRN (20:15)
[2017-11-04] MEDS ORDERED: METHYLPREDNISOLONE IV 60 MG in SYRINGE 0 ML IV SCH (20:15)
[2017-11-04] MEDS ORDERED: ALUMINUM/MAGNESIUM/SIMETH (MAALOX MAX) 30 ML UDC PO PRN ×2 (20:15→21:30)
[2017-11-04] MEDS ORDERED: HYDROCODONE/ACETAMIN 5/325MG TAB PO PRN (20:15)
[2017-11-04] MEDS ORDERED: MAGNESIUM HYDROXIDE SUSP 30 ML UDC PO PRN ×2 (20:15→21:30)
[2017-11-04] MEDS ORDERED: GUAIFENESIN 600 MG TABCR PO PRN (20:15)
[2017-11-04] MEDS ORDERED: ZOLPIDEM TARTRATE 5 MG TAB PO PRN ×2 (20:15)
[2017-11-04] MEDS: BUDESONIDE 0.5 MG/2 ML VIAL (PULMICORT) INH SCH (20:23)
[2017-11-04] MEDS ORDERED: NURSING VERBAL MED ORDER ONE (20:45)
[2017-11-04] MEDS ORDERED: LORAZEPAM 0.5 MG TAB PO PRN (20:45)
[2017-11-04] MEDS ORDERED: LEVALBUTEROL/IPRATROPIUM NEB INH SCH ×2 (21:00)
[2017-11-04] MEDS ORDERED: IPRATROPIUM BROMIDE NEB SOLN 0.02% 2.5 ML VIAL INH SCH (21:00)
[2017-11-04] MEDS ORDERED: LEVALBUTEROL 0.63MG/3 ML NEB INH SCH (21:00)
[2017-11-04] MEDS: LACTATED RINGER'S 1000ML 1,000 ML IV SCH (21:29)
[2017-11-04] MEDS ORDERED: ACETAMINOPHEN 325 MG TAB PO PRN (21:30)
[2017-11-04] MEDS: METHYLPREDNISOLONE IV 60 MG in SYRINGE 0 ML IV SCH (21:31)
[2017-11-04] MEDS: ACETAMINOPHEN 325 MG TAB PO PRN (21:31)
[2017-11-04] MEDS: OXYBUTYNIN CHLORIDE 5 MG TAB PO SCH (21:32)
[2017-11-04] MEDS: METOPROLOL SUCC 50MG EXT REL TAB PO SCH ×2 (21:32→21:34)
[2017-11-05] VITALS (13 sets, daily range): BP systolic 141–164; BP diastolic 66–75; PULSE 61–81; TEMP 36.4–36.8; O2SAT 91–97
[2017-11-05] MEDS: METHYLPREDNISOLONE IV 60 MG in SYRINGE 0 ML IV SCH ×4 (02:03→19:41)
[2017-11-05] MEDS ORDERED: LEVALBUTEROL/IPRATROPIUM NEB INH STA (07:11)
[2017-11-05] MEDS ORDERED: LEVALBUTEROL 1.25MG/0.5ML NEB INH ONE (07:30)
[2017-11-05] MEDS ORDERED: IPRATROPIUM BROMIDE NEB SOLN 0.02% 2.5 ML VIAL INH ONE (07:30)
--- NOTE | 2017-11-05 07:38 | MAMMOGRAPHY REPORT ---
NEEDLE LOCALIZATION LEFT BREAST: 11/04/2017 CLINICAL HISTORY: Biopsy-proven radial scar in the 3:00 left breast. Patient presents for preoperati ve needle and wire localization prior to excisional biopsy. COMPARISON: Comparison is made to exams dated: 10/04/2017 mammogram, 10/04/2017 ultrasound, 09/18/2017 ma mmogram, 09/17/2016 mammogram - [facility], 07/20/2015 mammogram, and 07/12/2014 kacey mogram. PATIENT CONSENT: The risks of the procedure were explained to the patient and informed consent was ob tained. Patient denied eating or drinking anything this morning that would preclude anesthesia. She also denied allergy to lidocaine. PROCEDURE DESCRIPTION: Screening mammograms performed 09/18/2017, diagnostic left mammograms and ultra sound performed 10/04/2017, core biopsy images dated 10/09/2017 as well as postprocedure mammograms from the same day. The area of architectural distortion and associated ribbon-shaped biopsy marker clip in the 3:00 middle one third of the left breast is the intended target for preoperative localization. With the patient in the seated position, the left breast was placed in lateralmedial compression. A clinical reviewer tomosynthesis view was obtained which redemonstrates the subtle area of distortion and assoc iated biopsy marker clip. The skin of the left breast was cleansed with alcohol swabs. 1% buffered Lidocaine without epinephrine was administered as local anesthesia. A 5cm Medrano II needle and wire combination was inserted into the breast. Optimal positioning was confirmed and the needle was remove d leaving the wire in place, as per surgeon's preference. The entire procedure including approach an d needle length were discussed with the operating surgeon prior to surgery. The patient tolerated th e procedure well and there was no immediate complication. She was transferred to the operating room in satisfactory condition. The specimen radiograph demonstrates the localizing wire and ribbon-shaped biopsy marker clip central ly within the specimen, compatible with successful preoperative localization and subsequent surgical excision. IMPRESSION: NEEDLE LOCALIZATION Status post preoperative needle and wire localization for a biopsy-proven radial scar in the 3:00 lef t breast. The imaged specimen includes the intended abnormality. Isabelle Forman M.D. ay/:11/04/2017 16:05:30 Attending Technologist: Olivia INGRAM)(M), [facility] Video Library Assistant: Perri Muñiz [facility]
--- NOTE | 2017-11-05 07:38 | MAMMOGRAPHY REPORT ---
SPECIMEN: 11/04/2017 CLINICAL HISTORY: 72-year-old woman with a biopsy-proven radial scar in the lateral left breast. She presents for preoperative localization prior to surgical excisional biopsy. Please refer to the report from left breast needle localization with imaging performed at the same ti me for full detail. IMPRESSION: SPECIMEN Please refer to the report from left breast needle localization with imaging performed at the same ti me for full detail. Isabelle Forman M.D. ay/:11/04/2017 08:51:26 Promotions Assistant Sales Marketing: Perri Muñiz, [facility]
[2017-11-05] MEDS: BUDESONIDE 0.5 MG/2 ML VIAL (PULMICORT) INH SCH ×2 (07:54→19:16)
[2017-11-05] MEDS: FLUTICASONE/SALMETEROL (ADVAIR) 500/50 INH 14 PUFF INH SCH (08:14)
[2017-11-05] MEDS: PANTOprazole SOD 40 MG TAB PO SCH (08:15)
[2017-11-05] MEDS: METOPROLOL SUCC 50MG EXT REL TAB PO SCH ×2 (08:15→21:12)
[2017-11-05] MEDS: OXYBUTYNIN CHLORIDE 5 MG TAB PO SCH ×2 (08:15→21:11)
[2017-11-05] MEDS: ATORVASTATIN 20 MG TAB PO SCH (08:15)
--- NOTE | 2017-11-05 08:52 | Clinical Documentation Query ---
CLINICAL DOCUMENTATION QUERY Dr. JOY ROBERTS, In your clinical opinion is this patient being managed for: ( ) Acute pulmonary insufficiency following breast biopsy surgery ( x ) Not Agree ( ) Other explanation of clinical findings (Please Explain) ( ) Unable to determine (Please Define) ( ) Need to Discuss The medical record reflects the following clinical findings, treatment, and risk factors. Clinical Indicators: 72 yo female presenting with L breast mass/radial scar for a L breast biopsy. Reportedly pt with chronic RAJAN. Postoperatively pt unable to be weaned from O2 support with O2 sat dropping to 80% with ambulation and 88-91% at rest. Treatment: O2 support, admission to [facility] postoperatively, nebs, pulse ox monitoring, tele monitoring Risk Factors: COPD, morbid obesity Please clarify and document your clinical opinion in the progress notes and discharge summary. Terms such as "probable", "suspected", "likely", "questionable", "possible", or "still to be ruled out" are acceptable. IF IN AGREEMENT, YOU MUST DOCUMENT ABOVE DIAGNOSTIC STATEMENT IN DAILY PROGRESS NOTES AND DISCHARGE SUMMARY. This document is not part of the patient's record. Thank You, Kaylee Montalvo, RN [phone]
[2017-11-05] MEDS: LACTATED RINGER'S 1000ML 1,000 ML IV SCH ×2 (10:02→17:35)
--- NOTE | 2017-11-05 11:30 | Surgery Progress Note ---
Surgery Progress Note Date of Service Nov 05, 2017. Subjective Post OP Day: 1 + feeling well, + pain controlled, + diet (regular) Objective Vital Signs: Date Time Temp Pulse Resp B/P (MAP) Pulse Ox O2 Delivery O2 Flow Rate FiO2 11/05/17 08:12 36.6 72 18 156/72 (100) 97 11/05/17 08:00 91 Nasal Cannula 3.0 11/05/17 07:55 62 18 91 Nasal Cannula 2.0 11/05/17 04:00 Nasal Cannula 3.0 11/05/17 03:40 36.5 62 22 144/72 (96) 91 Nasal Cannula 3.0 11/04/17 23:59 Nasal Cannula 2.0 11/04/17 23:35 36.7 62 22 151/79 (103) 93 Nasal Cannula 2.0 11/04/17 20:02 36.6 58 24 148/76 (100) 98 Nasal Cannula 2.0 11/04/17 19:58 68 18 93 Nasal Cannula 2.0 11/04/17 19:00 36.5 62 22 168/83 94 Nasal Cannula 2.0 11/04/17 18:00 36.7 61 22 181/83 92 Nasal Cannula 2 11/04/17 17:05 36.9 59 20 177/89 95 Nasal Cannula 2 11/04/17 16:35 37.1 62 24 187/93 94 Nasal Cannula 2 11/04/17 16:05 36.9 54 22 164/70 88 Room Air 11/04/17 15:35 36.7 56 20 155/70 95 Nasal Cannula 2 11/04/17 15:27 60 11 98 11/04/17 15:27 59 11 11/04/17 15:25 157/71 11/04/17 15:22 52 14 97 11/04/17 15:22 52 14 11/04/17 15:21 54 16 126/63 94 11/04/17 15:21 55 16 11/04/17 15:21 56 16 92 Nasal Cannula 2.0 11/04/17 15:16 54 20 11/04/17 15:16 54 20 155/76 93 11/04/17 15:11 55 20 11/04/17 15:11 54 20 92 11/04/17 15:10 154/71 11/04/17 15:06 52 19 95 4/9/18 15:06 51 19 18 15:05 134/71 18 15:01 54 17 18 15:01 55 17 139/70 93 18 14:56 57 16 18 14:56 58 16 92 18 14:55 146/68 18 14:51 53 15 136/78 95 18 14:51 53 15 11/04/17 14:46 55 26 94 11/04/17 14:46 55 26 11/04/17 14:45 148/69 11/04/17 14:41 55 19 93 18 14:41 55 19 11/04/17 14:40 53 16 145/70 92 11/04/17 14:40 54 16 11/04/17 14:39 37.1 55 20 145/70 (102) 94 Oxymask 2 11/04/17 14:36 135/71 11/04/17 14:35 53 14 11/04/17 14:35 14 11/04/17 14:31 153/75 11/04/17 14:30 56 15 94 11/04/17 14:30 55 15 11/04/17 14:29 166/68 11/04/17 14:29 166/68 11/04/17 14:28 58 14 11/04/17 14:28 57 14 98 11/04/17 14:28 57 14 98 11/04/17 14:28 58 14 11/04/17 14:26 166/68 18 14:26 166/68 18 14:23 61 17 11/04/17 14:23 59 17 99 18 14:23 61 17 18 14:23 59 17 99 18 14:21 146/72 18 14:21 146/72 18 14:18 79 14 99 18 14:18 79 14 99 18 14:18 67 14 11/04/17 14:18 67 14 11/04/17 14:15 166/102 18 14:15 166/102 11/04/17 14:13 68 19 99 11/04/17 14:13 68 19 99 11/04/17 14:13 69 19 11/04/17 14:13 69 19 11/04/17 14:11 171/110 11/04/17 14:11 171/110 11/04/17 14:08 71 20 11/04/17 14:08 71 20 98 11/04/17 14:08 71 20 98 11/04/17 14:08 71 20 11/04/17 14:06 167/71 11/04/17 14:06 167/71 11/04/17 14:04 150/81 11/04/17 14:04 150/81 11/04/17 14:03 36.2 71 12 150/81 (124) 97 Oxymask 10 11/04/17 14:03 72 18 98 11/04/17 14:03 72 18 98 11/04/17 14:03 71 18 11/04/17 14:03 71 18 11/04/17 12:49 69 20 91 Room Air Laboratory Results: Results Past 24 Hours Test 11/05/17 11:18 Range/Units Assessment & Plan s/p left breast biopsy COPD, post-op hypoxia Remains on 3lpm 91-97%. Wears oxygen at home at night. Will two-step, possibly home today if ok with medicine.
[2017-11-05 11:58] LABS: BASO % 0.1 %; BASO ABS # 0.01 K/uL (0-0.2); HEMOGLOBIN 12.8 g/dL (12.0-16.0); IG# 0.08 K/uL (0.00-0.02); LYMPH % 4.3 %; LYMPH ABS # 0.68 K/uL (1.2-3.4); MEAN CELL VOLUME 89.4 fL (80-100); MEAN CORPUSCULAR HEMOGLOBIN 29.4 pg (25-34); MEAN CORPUSCULAR HGB CONC 32.8 g/dl (32-36); MEAN PLATELET VOLUME 10.6 fL (7.4-10.4); MONO % 3.4 %; MONO ABS # 0.54 K/uL (0.11-0.59); NEUT % 91.7 %; NEUT ABS # 14.56 K/uL (1.4-6.5); PLATELET COUNT 200 K/uL (130-400); RED CELL DISTRIBUTION WIDTH CV 13.3 % (11.5-14.5); RED CELL DISTRIBUTION WIDTH SD 43.3 fL (36.4-46.3); WHITE BLOOD COUNT 15.87 K/uL (4.8-10.8)
[2017-11-05 12:19] LABS: ALBUMIN 3.2 gm/dl (3.4-5.0); ALT/SGPT 30 U/L (12-78); AST/SGOT 18 U/L (15-37); BLOOD UREA NITROGEN 13 mg/dl (7-18); CALCIUM 9.1 mg/dl (8.5-10.1); CARBON DIOXIDE 28 mmol/L (21-32); CREATININE 0.66 mg/dl (0.60-1.20); GLUCOSE 159 mg/dl (70-99); POTASSIUM 3.8 mmol/L (3.5-5.1); SODIUM 136 mmol/L (136-145)
[2017-11-05 12:24] LABS: ALKALINE PHOSPHATASE 96 U/L (45-117)
[2017-11-05] MEDS: LEVALBUTEROL 1.25MG/0.5ML NEB INH SCH ×2 (14:25→19:17)
[2017-11-05] MEDS: IPRATROPIUM BROMIDE NEB SOLN 0.02% 2.5 ML VIAL INH SCH ×2 (14:25→19:17)
--- NOTE | 2017-11-05 17:14 | Cardiology Follow-Up ---
Subjective Subjective Date of Service: Nov 05, 2017. Pt evaluation today including: conversation w/ patient, physical exam, chart review, lab review, review of studies, review of inpatient medication list Problem List Patient post excisional left breast biopsy yesterday. Reports constant central chest pain since prior to biopsy. Pain worse with coughing. Also more short of breath post procedure. Telemetry reviewed -- no events. Review of Systems Constitutional: No fever, No chills Eyes: No worsening of vision ENT: No hearing loss Cardiac: + chest pain Abdomen: No pain, No nausea Heme: No abnormal bleeding/bruising Endo: No fatigue Skin: No rash Objective Vital Signs Last Vital Signs Documentation Date Time Temp Pulse Resp B/P (MAP) Pulse Ox O2 Delivery O2 Flow Rate FiO2 11/05/17 14:25 68 18 91 Nasal Cannula 2.0 11/05/17 12:03 36.7 141/66 (91) Physical Exam: General Appearance: no apparent distress ENT: hearing grossly normal Neck: no JVD Respiratory/Chest: chest non-tender, + decreased breath sounds (right greater than left) Cardiovascular: regular rate, rhythm, no edema, + systolic murmur (2/6 NATHANIEL) Abdomen: normal bowel sounds Extremities: no pedal edema, + pertinent finding (signs of chronic venous insufficiency) Neurologic/Psychiatric: alert, oriented x 3 Skin: warm/dry, no rash Assessment and Plan 1. Noncardiac chest pain 2. POD1 post left breast excisional biopsy 3. COPD 4. HTN 5. HLD 6. Aortic valve sclerosis Patient with persistent chest pain for >24hrs. Pain positional and reproducible. Cardiac enzymes negative. ECG with artifact but no dynamic changes. Chest pain non-cardiac in nature. Otherwise patient well perfused without significant congestion on exam. Hemodynamically and electrically stable. No active cardiac conditions at this time and OK from cardiac standpoint for discharge when post-op/medical issues resolved. Medications: Current Inpatient Medications Medications (Trade) Dose Ordered Sig/Yfn Route Start Time Stop Time Status Last Admin Dose Admin Lactated Ringer's 1,000 ml @ 50 mls/hr Q20H IV 11/04/17 14:00 12/04/17 13:59 11/05/17 10:02 50 MLS/HR Morphine Sulfate (MoRPHine SULFATE INJ) 4 mg Q1H PRN IV 11/04/17 14:00 11/18/17 13:59 Ondansetron HCl (Zofran Inj) 4 mg Q6H PRN IV 11/04/17 14:00 12/04/17 13:59 Oxycodone/ Acetaminophen (Percocet 5-325mg Tab) 1 tab Q4H PRN PO 11/04/17 14:00 11/18/17 13:59 11/05/17 09:48 1 TAB Atorvastatin Calcium (Lipitor Tab) 20 mg QAM PO 11/05/17 09:00 12/05/17 08:59 11/05/17 08:15 20 MG Salmeterol Xinafoate/ Fluticasone (Advair Diskus 500/50 Inh) 1 puff QAM INH 11/05/17 09:00 12/05/17 08:59 11/05/17 08:14 1 PUFF Acetaminophen/ Hydrocodone Bitart ([place] 5/325 Tab) 1 tab Q4H PRN PO 11/04/17 20:15 11/18/17 20:14 Metoprolol Succinate (Toprol Xl Tab) 50 mg BID PO 11/04/17 21:00 12/04/17 20:59 11/05/17 08:15 50 MG Oxybutynin Chloride (Ditropan Tab) 5 mg BID PO 11/04/17 21:00 12/04/17 20:59 11/05/17 08:15 5 MG Pantoprazole Sodium (Protonix Tab) 40 mg QAM PO 11/05/17 09:00 12/05/17 08:59 11/05/17 08:15 40 MG Budesonide (Pulmicort Respules 0.5MG/ 2ML Neb Soln) 0.5 mg BIDR INH 11/04/17 20:00 12/04/17 19:59 11/05/17 07:54 0.5 MG Methylprednisolone Sodium Succinate 60 mg/Syringe 0.96 ml @ 1.5 mls/min Q6H IV 11/04/17 20:00 12/04/17 19:59 11/05/17 14:17 1.5 MLS/MIN Guaifenesin (Mucinex Contr Rel Tab) 600 mg Q12 PRN PO 11/04/17 20:15 12/04/17 20:14 11/05/17 08:15 600 MG Acetaminophen (Tylenol Tab) 650 mg Q4H PRN PO 11/04/17 20:15 12/04/17 20:14 11/04/17 21:31 650 MG Al Hydrox/Mg Hydrox/Simethicone (Maalox Max Susp) 15 ml Q4H PRN PO 11/04/17 20:15 12/04/17 20:14 Magnesium Hydroxide (Milk Of Magnesia Susp) 30 ml Q12H PRN PO 11/04/17 20:15 12/04/17 20:14 Zolpidem Tartrate (Ambien Tab) 5 mg HSZ PRN PO 11/04/17 20:15 12/04/17 20:14 Ondansetron HCl (Zofran Inj) 4 mg Q6H PRN IV 11/04/17 20:15 12/04/17 20:14 Nitroglycerin (Nitrostat Tab) 0.4 mg UD PRN SL 11/04/17 20:15 12/04/17 20:14 Polyethylene (Miralax Powder Packet) 17 gm DAILY PRN PO 11/04/17 20:15 12/04/17 20:14 Lorazepam (Ativan Tab) 0.5 mg TID PRN PO 11/04/17 20:45 12/04/17 20:44 Ipratropium [place] (Atrovent 0.02% 0.5MG/2.5ML Neb) 0.5 mg Q6R INH 11/05/17 15:00 12/05/17 14:59 11/05/17 14:25 0.5 MG Levalbuterol (Xopenex 1.25MG/ 0.5ML Neb) 1.25 mg Q6R INH 11/05/17 15:00 12/05/17 14:59 11/05/17 14:25 1.25 MG Lab Results: 11/05/17 11:30 Red Blood Count 4.36, Mean Corpuscular Volume 89.4, Mean Corpuscular Hemoglobin 29.4, Mean Corpuscular Hemoglobin Concent 32.8, Mean Platelet Volume 10.6, Neutrophils (%) (Auto) 91.7, Lymphocytes (%) (Auto) 4.3, Monocytes (%) (Auto) 3.4, Eosinophils (%) (Auto) 0.0, Basophils (%) (Auto) 0.1, Neutrophils # (Auto) 14.56, Lymphocytes # (Auto) 0.68, Monocytes # (Auto) 0.54, Eosinophils # (Auto) 0.00, Basophils # (Auto) 0.01 11/05/17 11:30 Test 11/05/17 11:30 White Blood Count 15.87 K/uL (4.8-10.8) Red Blood Count 4.36 M/uL (4.2-5.4) Hemoglobin 12.8 g/dL (12.0-16.0) Hematocrit 39.0 % (37-47) Mean Corpuscular Volume 89.4 fL (80-100) Mean Corpuscular Hemoglobin 29.4 pg (25-34) Mean Corpuscular Hemoglobin Concent 32.8 g/dl (32-36) Platelet Count 200 K/uL (130-400) Mean Platelet Volume 10.6 fL (7.4-10.4) Neutrophils (%) (Auto) 91.7 % Lymphocytes (%) (Auto) 4.3 % Monocytes (%) (Auto) 3.4 % Eosinophils (%) (Auto) 0.0 % Basophils (%) (Auto) 0.1 % Neutrophils # (Auto) 14.56 K/uL (1.4-6.5) Lymphocytes # (Auto) 0.68 K/uL (1.2-3.4) Monocytes # (Auto) 0.54 K/uL (0.11-0.59) Eosinophils # (Auto) 0.00 K/uL (0-0.5) Basophils # (Auto) 0.01 K/uL (0-0.2) RDW Standard Deviation 43.3 fL (36.4-46.3) RDW Coefficient of Variation 13.3 % (11.5-14.5) Immature Granulocyte % (Auto) 0.5 % Immature Granulocyte # (Auto) 0.08 K/uL (0.00-0.02) Anion Gap 4.0 mmol/L (3-11) Est Creatinine Clear Calc Drug Dose 76.4 ml/min Estimated GFR () 100.9 Estimated GFR (Non- 87.0 BUN/Creatinine Ratio 19.6 (10-20) Calcium Level 9.1 mg/dl (8.5-10.1) Magnesium Level 2.1 mg/dl (1.8-2.4) Total Bilirubin 0.3 mg/dl (0.2-1) Aspartate Amino Transf (AST/SGOT) 18 U/L (15-37) Alanine Aminotransferase (ALT/SGPT) 30 U/L (12-78) Alkaline Phosphatase 96 U/L (45-117) Total Creatine Kinase 187 U/L (26-192) Troponin I < 0.015 ng/ml (0-0.045) Total Protein 7.0 gm/dl (6.4-8.2) Albumin 3.2 gm/dl (3.4-5.0) Globulin 3.8 gm/dl (2.5-4.0) Albumin/Globulin Ratio 0.8 (0.9-2)
--- NOTE | 2017-11-05 19:58 | History and Physical ---
History & Physical Date of Service Nov 04, 2017. History & Physical [facility] [address] [place] [address] History & Physical Patient Name: Domenica Gordillo Unit Number: [id number] Date of : 1945 Patient Status: Registered Recurring Attending Doctor: No Doctor, Assigned History H&P v2 History & Physical Date & Time of Service: Nov 04, 2017 at 17:49 Chief Complaint: Primary Care Physician: Stevenson Zendejas M.D. History of Present Illness Source: patient, family 72-year-old pleasant female with past medical history of hypertension, COPD/ emphysema, morbid obesity, dyslipidemia and suggestive of obstructive sleep apnea under investigation. Patient presented to the hospital for an elective lumpectomy of her left breast. Procedure went uneventful after the procedure patient was noticed to be short of breath. Patient added desaturated when she tried to walk down to the 80s. Oxygen level improved after giving her 2 L of oxygen nasal cannula. Patient reported that she is on 2 L nasal cannula at home at night. But did not require oxygen while she is awake before. Patient has been having exertional shortness of breath and chest tightness for the past 6 months which plummeted a 2D echo prior to the surgery results are not available at this moment but as per patient. Was within normal limits. Denies any cough No sputum production. Denies any currently chest pain. Shortness of breath resolved after giving her 2 L of oxygen. Past Medical/Surgical History Medical Problems: (1) Acute and chronic respiratory failure with hypoxia Social History Smoking Status: Former Smoker Allergies Coded Allergies: No Known Allergies (Unverified , 11/04/17) Home Medications Scheduled Alendronate/Cholecalciferol (Fosamax+D 70MG/2800 Iu), 1 TABLET PO WK Aspirin (Aspirin Ec), 81 MG PO QAM Atorvastatin (Lipitor), 20 MG PO QAM Calcium Carbonate-Cholecalcife (Caltrate 600+D), 1 TAB PO QAM Fluticasone Prop/Salmeterol (Advair Diskus 500/50 60 Dose), 1 PUFF INH QAM Home O2 Therapy (Oxygen), 2 LITERS NA HS Ipratropium [place] (Ipratropium [place]), 1 VIAL NEB QID Lorazepam (Ativan), 0.5 MG PO prn Metoprolol Succ (Toprol Xl) (Toprol-Xl ), 100 MG PO BID Multivitamin (Multivitamin), 1 TAB PO QAM Omeprazole (Prilosec), 20 MG PO QAM Oxybutynin Chloride (Ditropan), 1 TAB PO BID Scheduled PRN Hydrocodone/Acetaminophen 5MG/325MG ([place] 5MG/325MG), 1 TABLET PO Q4H PRN for Pain Hydroxyzine Pamoate (Vistaril), 1 CAP PO Q6H PRN for merchandise director of Systems Review of system Constitutional: No fever / no chills / no sweats / no weakness / no fatigue Eyes: no blurring of vision / no eye pain / no discharge / no redness ENT: no hearing loss / no epistaxis /no swallowing problems Respiratory: Shortness of breath on exertion, denies any cough but admits to exertional chest tightness/ no hemoptysis Cardiovascular: no Chest pain / no lower extremity edema / no palpitation Abdomen: no pain / no nausea / no vomiting / no constipation Musculoskeletal: no joint pain / no muscle pain / no joint swelling Genitourinary: no dysuria / no incontinence / no urinary retention Neurologic: no focal weakness / no numbness/tingling / no ataxia Psychiatric: no depression symptoms / no anxiety / no insomnia Endocrine: no excessive thirst / no excessive urination Hematologic: no abnormal bleeding / no bruising / no LN swelling Skin: No rash / no pallor Physical Exam H&P v2 Physical Exam Physical examination General patient appears to be comfortable, not in acute distress, morbidly obese HEENT: Atraumatic , normocephalic /no jaundice /no pallor /anicteric /no dry mucous membrane /normal external ear inspection Neck: Supple /no swelling /central trach Heart: S1/S2 normal/regular rate and rhythm/no gallop /no rub /no murmur Lungs: Decreased air entry bilaterally, bilateral wheezing, scattered rhonchi. Abdomen: Soft/nontender/no guarding/no rebound/no organomegaly/no pulsatile mass Musculoskeletal: No swelling/no edema/no tenderness/normal range of motion Neuro exam: Awake alert oriented 3/cranial nerves II through XII appear to be intact/sensation intact/moves all extremities/no abnormal movements Psychiatric evaluation: No depressed mood/normal affect Skin: No rash on exposed skin area/no erythema Extremity: Normal pulse/no pitting edema/no clubbing or cyanosis Endocrine/lymphatic: No obvious lymphadenopathy /no lymphedema Diagnostics H&P v2 Diagnostics Impression H&P v2 Impression Assessment and Plan 72-year-old female with past medical history of COPD/emphysema, morbid obesity, hypertension and dyslipidemia presented to the hospital for an elective left breast lumpectomy. Developed acute on chronic respiratory failure with hypoxemia after the surgery. Assessment Acute on chronic respiratory failure with hypoxemia/patient used to be on nocturnal oxygen only COPD exacerbation Hypertension Dyslipidemia Left breast mass status post lumpectomy, procedure went uneventful Morbid obesity Plan Admit patient to telemetry Start patient on bronchodilators, Xopenex/Atrovent 0.63 inhalation nebulizer 4 times daily Start patient on steroids, Solu-Medrol 60 mg IV every 6 hours Chest imaging to rule out pneumonia Pulmonary consultation if no improvement as needed Pepcid for GI prophylaxis Hold off heparin subcu for DVT prophylaxis as patient just had a surgical procedure, will leave pharmacologic prophylaxis up to the surgeon, start patient on SCD boots Continue home meds but hold aspirin Patient will need pulmonary function test in 6 weeks after resolution Resuscitation Status VTE Prophylaxis Will order VTE Prophylaxis: Yes
--- NOTE | 2017-11-05 20:01 | Progress Note ---
Subjective Date of Service: Nov 05, 2017. Subjective Pt evaluation today including: conversation w/ patient, physical exam, chart review, lab review, review of studies Pain: Controlled PO Intake: Adequate Unfortunately patient continued to require oxygen even at rest Still having significant shortness of breath Review of Systems Review of system Constitutional: No fever / no chills / no sweats / no weakness / no fatigue Eyes: no blurring of vision / no eye pain / no discharge / no redness ENT: no hearing loss / no epistaxis /no swallowing problems Respiratory: no cough / no wheezing /significant shortness of breath as mentioned above Cardiovascular: no Chest pain / no lower extremity edema / no palpitation Abdomen: no pain / no nausea / no vomiting / no constipation Musculoskeletal: no joint pain / no muscle pain / no joint swelling Genitourinary: no dysuria / no incontinence / no urinary retention Neurologic: no focal weakness / no numbness/tingling / no ataxia Psychiatric: no depression symptoms / no anxiety / no insomnia Endocrine: no excessive thirst / no excessive urination Hematologic: no abnormal bleeding / no bruising / no LN swelling Skin: No rash / no pallor Objective Vital Signs Date Time Temp Pulse Resp B/P (MAP) Pulse Ox O2 Delivery O2 Flow Rate FiO2 11/05/17 19:17 64 18 93 Nasal Cannula 2.0 11/05/17 16:25 36.8 61 20 155/70 (98) 92 Nasal Cannula 2.0 11/05/17 16:00 92 2.0 11/05/17 14:25 68 18 91 Nasal Cannula 2.0 11/05/17 12:03 36.7 81 18 141/66 (91) 96 11/05/17 12:00 91 Nasal Cannula 3.0 11/05/17 08:12 36.6 72 18 156/72 (100) 97 11/05/17 08:00 91 Nasal Cannula 3.0 11/05/17 07:55 62 18 91 Nasal Cannula 2.0 11/05/17 04:00 Nasal Cannula 3.0 11/05/17 03:40 36.5 62 22 144/72 (96) 91 Nasal Cannula 3.0 11/04/17 23:59 Nasal Cannula 2.0 11/04/17 23:35 36.7 62 22 151/79 (103) 93 Nasal Cannula 2.0 11/04/17 20:02 36.6 58 24 148/76 (100) 98 Nasal Cannula 2.0 11/04/17 19:58 68 18 93 Nasal Cannula 2.0 Physical Exam Comments: Physical examination General patient appears to be comfortable, not in acute distress HEENT: Atraumatic , normocephalic /no jaundice /no pallor /anicteric /no dry mucous membrane /normal external ear inspection Neck: Supple /no swelling /central trach Heart: S1/S2 normal/regular rate and rhythm/no gallop /no rub /no murmur Lungs: Decreased air entry bilaterally, positive for by bilateral basal rales/ no wheezing/no use of accessory muscles of respiration Abdomen: Soft/nontender/no guarding/no rebound/no organomegaly/no pulsatile mass Musculoskeletal: No swelling/no edema/no tenderness/normal range of motion Neuro exam: Awake alert oriented 3/cranial nerves II through XII appear to be intact/sensation intact/moves all extremities/no abnormal movements Psychiatric evaluation: No depressed mood/normal affect Skin: No rash on exposed skin area/no erythema Extremity: Normal pulse/no pitting edema/no clubbing or cyanosis Endocrine/lymphatic: No obvious lymphadenopathy /no lymphedema Laboratory Results Last 24 Hours Test 11/05/17 11:30 White Blood Count 15.87 K/uL Red Blood Count 4.36 M/uL Hemoglobin 12.8 g/dL Hematocrit 39.0 % Mean Corpuscular Volume 89.4 fL Mean Corpuscular Hemoglobin 29.4 pg Mean Corpuscular Hemoglobin Concent 32.8 g/dl Platelet Count 200 K/uL Mean Platelet Volume 10.6 fL Neutrophils (%) (Auto) 91.7 % Lymphocytes (%) (Auto) 4.3 % Monocytes (%) (Auto) 3.4 % Eosinophils (%) (Auto) 0.0 % Basophils (%) (Auto) 0.1 % Neutrophils # (Auto) 14.56 K/uL Lymphocytes # (Auto) 0.68 K/uL Monocytes # (Auto) 0.54 K/uL Eosinophils # (Auto) 0.00 K/uL Basophils # (Auto) 0.01 K/uL RDW Standard Deviation 43.3 fL RDW Coefficient of Variation 13.3 % Immature Granulocyte % (Auto) 0.5 % Immature Granulocyte # (Auto) 0.08 K/uL Sodium Level 136 mmol/L Potassium Level 3.8 mmol/L Chloride Level 104 mmol/L Carbon Dioxide Level 28 mmol/L Anion Gap 4.0 mmol/L Blood Urea Nitrogen 13 mg/dl Creatinine 0.66 mg/dl Est Creatinine Clear Calc Drug Dose 76.4 ml/min Estimated GFR () 100.9 Estimated GFR (Non- 87.0 BUN/Creatinine Ratio 19.6 Random Glucose 159 mg/dl Calcium Level 9.1 mg/dl Magnesium Level 2.1 mg/dl Total Bilirubin 0.3 mg/dl Aspartate Amino Transf (AST/SGOT) 18 U/L Alanine Aminotransferase (ALT/SGPT) 30 U/L Alkaline Phosphatase 96 U/L Total Creatine Kinase 187 U/L Troponin I < 0.015 ng/ml Total Protein 7.0 gm/dl Albumin 3.2 gm/dl Globulin 3.8 gm/dl Albumin/Globulin Ratio 0.8 Assessment and Plan 72-year-old female with past medical history of COPD/emphysema, morbid obesity, hypertension and dyslipidemia presented to the hospital for an elective left breast lumpectomy. Developed acute on chronic respiratory failure with hypoxemia after the surgery. Assessment Acute on chronic respiratory failure with hypoxemia/patient used to be on nocturnal oxygen only COPD exacerbation CHF exacerbation unspecified Hypertension Dyslipidemia Left breast mass status post lumpectomy, procedure went uneventful Morbid obesity Plan continue telemetry continue bronchodilators, Xopenex/Atrovent 0.63 inhalation nebulizer 4 times daily continue steroids, lower dose of Solu-Medrol 40 mg IV every 8 hours re order Chest imaging to rule out CHF echo stop IVF lasix 40mg IV BID Pulmonary consultation if no improvement as needed Pepcid for GI prophylaxis start heparin subcu for DVT prophylaxis Continue home meds restart aspirin Patient will need pulmonary function test in 6 weeks after resolution
--- NOTE | 2017-11-05 20:37 | DIAGNOSTIC IMAGING REPORT ---
CHEST ONE VIEW PORTABLE HISTORY: 72 years-old Female sob acute shortness of breath COMPARISON: Chest radiograph 6 11/01/2017 TECHNIQUE: Portable AP view the chest FINDINGS: Cardiac silhouette is moderately enlarged, unchanged. Atherosclerosis of the aorta. Subsegmental bibasilar opacities are unchanged suggesting atelectasis/scarring. There is no pneumothorax, large pleural effusion or overt pulmonary edema. No lobar airspace consolidation. Bones of the chest appear grossly intact. Degenerative changes of the shoulders and spine. IMPRESSION: No acute process. The above report was generated using voice recognition software. It may contain grammatical, syntax or spelling errors. Electronically signed by: Mikey Walton M.D. 11/05/2017 8:36 PM Dictated Date/Time: 11/05/2017 8:35 PM
[2017-11-05] MEDS: FUROSEMIDE INJ 40 MG in SYRINGE 0 ML IV SCH (21:11)
[2017-11-05] MEDS: ACETAMINOPHEN 325 MG TAB PO PRN (21:15)
[2017-11-05 22:38] LABS: PTT PATIENT 23.3 SECONDS (21.0-31.0)
[2017-11-06] VITALS (10 sets, daily range): BP systolic 157–180; BP diastolic 70–84; PULSE 57–76; TEMP 36.3–36.7; O2SAT 90–97
[2017-11-06] MEDS: METHYLPREDNISOLONE IV 60 MG in SYRINGE 0 ML IV SCH ×3 (01:58→13:35)
[2017-11-06] MEDS: LEVALBUTEROL 1.25MG/0.5ML NEB INH SCH ×3 (02:50→14:13)
[2017-11-06] MEDS: IPRATROPIUM BROMIDE NEB SOLN 0.02% 2.5 ML VIAL INH SCH ×3 (02:50→14:13)
[2017-11-06] MEDS: BUDESONIDE 0.5 MG/2 ML VIAL (PULMICORT) INH SCH (07:13)
[2017-11-06 07:25] LABS: HEMATOCRIT 39.9 % (37-47); HEMOGLOBIN 12.9 g/dL (12.0-16.0); IG# 0.06 K/uL (0.00-0.02); LYMPH % 4.4 %; LYMPH ABS # 0.75 K/uL (1.2-3.4); MEAN CELL VOLUME 89.9 fL (80-100); MEAN CORPUSCULAR HEMOGLOBIN 29.1 pg (25-34); MEAN CORPUSCULAR HGB CONC 32.3 g/dl (32-36); MEAN PLATELET VOLUME 11.2 fL (7.4-10.4); MONO % 3.4 %; MONO ABS # 0.58 K/uL (0.11-0.59); NEUT % 91.8 %; NEUT ABS # 15.57 K/uL (1.4-6.5); PLATELET COUNT 198 K/uL (130-400); RED CELL DISTRIBUTION WIDTH CV 13.5 % (11.5-14.5); RED CELL DISTRIBUTION WIDTH SD 44.1 fL (36.4-46.3); WHITE BLOOD COUNT 16.96 K/uL (4.8-10.8)
[2017-11-06] MEDS: ATORVASTATIN 20 MG TAB PO SCH (08:00)
[2017-11-06 08:01] LABS: ALBUMIN 3.2 gm/dl (3.4-5.0); CALCIUM 8.9 mg/dl (8.5-10.1); CREATININE 0.69 mg/dl (0.60-1.20); POTASSIUM 3.7 mmol/L (3.5-5.1)
[2017-11-06] MEDS: METOPROLOL SUCC 50MG EXT REL TAB PO SCH (08:01)
[2017-11-06] MEDS: FUROSEMIDE INJ 40 MG in SYRINGE 0 ML IV SCH (08:01)
[2017-11-06] MEDS: OXYBUTYNIN CHLORIDE 5 MG TAB PO SCH (08:01)
[2017-11-06] MEDS: FLUTICASONE/SALMETEROL (ADVAIR) 500/50 INH 14 PUFF INH SCH (08:01)
[2017-11-06] MEDS: PANTOprazole SOD 40 MG TAB PO SCH (08:01)
[2017-11-06 08:04] LABS: TOTAL PROTEIN 6.7 gm/dl (6.4-8.2)
--- NOTE | 2017-11-06 08:38 | Surgery Progress Note ---
Surgery Progress Note Date of Service Nov 06, 2017. Subjective POD #2 Left breast wire localized excisional biopsy, admitted for persistent oxygen requirement following surgery. She is on oxygen at night at home, however she was unable to wean off the oxygen. She has minimal pain in her left breast, and is anxious to go home. Objective Vital Signs: Date Time Temp Pulse Resp B/P (MAP) Pulse Ox O2 Delivery O2 Flow Rate FiO2 11/06/17 08:00 94 Nasal Cannula 2.0 11/06/17 07:56 36.5 60 19 167/70 (102) 94 Nasal Cannula 2.0 11/06/17 07:19 76 18 97 Nasal Cannula 2.0 11/06/17 04:00 Nasal Cannula 2.0 11/06/17 03:35 36.4 58 17 157/81 (106) 94 Nasal Cannula 2.0 11/06/17 02:51 68 18 95 Nasal Cannula 2.0 11/06/17 00:01 Nasal Cannula 2.0 11/05/17 23:38 36.7 65 20 145/71 (95) 94 Nasal Cannula 2.0 11/05/17 20:00 94 2.0 11/05/17 19:41 36.4 65 19 164/75 (104) 94 Nasal Cannula 1.5 11/05/17 19:17 64 18 93 Nasal Cannula 2.0 11/05/17 16:25 36.8 61 20 155/70 (98) 92 Nasal Cannula 2.0 11/05/17 16:00 92 2.0 11/05/17 14:25 68 18 91 Nasal Cannula 2.0 11/05/17 12:03 36.7 81 18 141/66 (91) 96 11/05/17 12:00 91 Nasal Cannula 3.0 General Appearance: WD/WN, no apparent distress, + obese Incision(s): clean, dry, intact, no erythema, no drainage, ecchymosis Laboratory Results: Results Past 24 Hours Test 11/05/17 11:30 11/05/17 22:02 11/06/17 06:51 Range/Units White Blood Count 15.87 16.96 4.8-10.8 K/uL Red Blood Count 4.36 4.44 4.2-5.4 M/uL Hemoglobin 12.8 12.9 12.0-16.0 g/dL Hematocrit 39.0 39.9 37-47 % Mean Corpuscular Volume 89.4 89.9 80-100 fL Mean Corpuscular Hemoglobin 29.4 29.1 25-34 pg Mean Corpuscular Hemoglobin Concent 32.8 32.3 32-36 g/dl Platelet Count 200 198 130-400 K/uL Mean Platelet Volume 10.6 11.2 7.4-10.4 fL Neutrophils (%) (Auto) 91.7 91.8 % Lymphocytes (%) (Auto) 4.3 4.4 % Monocytes (%) (Auto) 3.4 3.4 % Eosinophils (%) (Auto) 0.0 0.0 % Basophils (%) (Auto) 0.1 0.0 % Neutrophils # (Auto) 14.56 15.57 1.4-6.5 K/uL Lymphocytes # (Auto) 0.68 0.75 1.2-3.4 K/uL Monocytes # (Auto) 0.54 0.58 0.11-0.59 K/uL Eosinophils # (Auto) 0.00 0.00 0-0.5 K/uL Basophils # (Auto) 0.01 0.00 0-0.2 K/uL RDW Standard Deviation 43.3 44.1 36.4-46.3 fL RDW Coefficient of Variation 13.3 13.5 11.5-14.5 % Immature Granulocyte % (Auto) 0.5 0.4 % Immature Granulocyte # (Auto) 0.08 0.06 0.00-0.02 K/uL Sodium Level 136 141 136-145 mmol/L Potassium Level 3.8 3.7 3.5-5.1 mmol/L Chloride Level 104 105 98-107 mmol/L Carbon Dioxide Level 28 28 21-32 mmol/L Anion Gap 4.0 8.0 3-11 mmol/L Blood Urea Nitrogen 13 17 7-18 mg/dl Creatinine 0.66 0.69 0.60-1.20 mg/dl Est Creatinine Clear Calc Drug Dose 76.4 73.1 ml/min Estimated GFR () 100.9 99.4 Estimated GFR (Non- 87.0 85.8 BUN/Creatinine Ratio 19.6 25.2 10-20 Random Glucose 159 147 70-99 mg/dl Calcium Level 9.1 8.9 8.5-10.1 mg/dl Magnesium Level 2.1 2.2 1.8-2.4 mg/dl Total Bilirubin 0.3 0.3 0.2-1 mg/dl Aspartate Amino Transf (AST/SGOT) 18 20 15-37 U/L Alanine Aminotransferase (ALT/SGPT) 30 29 12-78 U/L Alkaline Phosphatase 96 96 45-117 U/L Total Creatine Kinase 187 26-192 U/L Troponin I < 0.015 0-0.045 ng/ml Total Protein 7.0 6.7 6.4-8.2 gm/dl Albumin 3.2 3.2 3.4-5.0 gm/dl Globulin 3.8 3.5 2.5-4.0 gm/dl Albumin/Globulin Ratio 0.8 0.9 0.9-2 Prothrombin Time 10.6 9.0-12.0 SECONDS Prothromb Time International Ratio 1.0 0.9-1.1 Activated Partial Thromboplast Time 23.3 21.0-31.0 SECONDS Partial Thromboplastin Ratio 0.9 Assessment & Plan 72-year-old female status post left breast wire localized lumpectomy, admitted for persistent oxygen requirement following surgery. She is currently being worked up and evaluated by the medicine team, appreciate their assistance with this patient. Okay to discharge from general surgery standpoint, follow-up in 2 weeks as previously scheduled Tylenol and ibuprofen for pain Return precautions given, call with questions or concerns We will discuss discharge plans with medicine, appreciate their assistance
[2017-11-06] MEDS ORDERED: ASPIRIN 81 MG ECTAB PO SCH (09:00)
[2017-11-06] MEDS ORDERED: HEPARIN SOD 5000 UNIT/0.5 ML CARP SQ SCH (09:00)
[2017-11-06] MEDS ORDERED: XPNINS1255 INH (14:51)
[2017-11-06] MEDS ORDERED: PRED10TA PO (14:52)
[2017-11-06] MEDS ORDERED: FURO40TA3 PO (14:52)
[2017-11-06] MEDS ORDERED: NEBMAC (14:52)
--- NOTE | 2017-11-06 15:04 | Discharge Summary ---
Discharge Summary Date of Service Nov 06, 2017. Discharge Summary Admission Date: Nov 04, 2017 at 17:44 Discharge Date: Nov 06, 2017 Discharge Disposition: Home Principal Diagnosis: acute respiratory failure with hypoxemia Problems/Secondary Diagnoses: COPD exacerbation acute diastolic CHF Hypertension Dyslipidemia Left breast mass status post lumpectomy, procedure went uneventful Morbid obesity Medication Reconciliation New Medications: Furosemide (Lasix) 40 Mg Tab 40 MG PO QAM for 30 Days, #30 TAB Hydrocodone/Acetaminophen 5MG/325MG ([place] 5MG/325MG) Tab 1 TABLET PO Q4H PRN for Pain, #15 TAB Nebulizer Machine (Home Use) (Nebulizer Machine (Home Use) ) Mis EA N/A UD, #1 Prednisone Tab (Prednisone) 10 Mg Tab 10 MG PO UD, #10 TAB dispense 10 tabs take 40mg (4 tabs) day # 1 take 30mg (3 tabs) day # 2 take 20mg (2 tabs) day # 3 take 10mg (1 tabs) day # 4 then stop Levalbuterol (Levalbuterol) 1.25 Mg/0.5 Ml Nebu 1.25 MG INH Q6R for 7 Days, #25 VIAL use it every 8 hours regularely for one week then only as needed for shortness of breath Continued Medications: Alendronate/Cholecalciferol (Fosamax+D 70MG/2800 Iu) 70 Mg Tab 1 TABLET PO WK, TAB SATURDAY Aspirin (Aspirin Ec) 81 Mg Tab 81 MG PO QAM Atorvastatin (Lipitor) 20 Mg Tab 20 MG PO QAM, TAB Calcium Carbonate-Cholecalcife (Caltrate 600+D) 1 Tab Tab 1 TAB PO QAM Fluticasone Prop/Salmeterol (Advair Diskus 500/50 60 Dose) 1 Ea Aerp 1 PUFF INH QAM, INHALER Home O2 Therapy (Oxygen) Gas 2 LITERS NA HS, BTL AND PRN DURING THE DAY Hydroxyzine Pamoate (Vistaril) 25 Mg Cap 1 CAP PO Q6H PRN for RN for 30 Days, #120 CAP Ipratropium [place] (Ipratropium [place]) 0.5 Mg/2.5 Ml Nebu 1 VIAL NEB QID for 30 Days, #300 ML 3 Refills Lorazepam (Ativan) 0.5 Mg Tab 0.5 MG PO prn, TAB Metoprolol Succ (Toprol Xl) (Toprol-Xl ) 100 Mg Tabcr 100 MG PO BID, TAB Multivitamin (Multivitamin) Tab 1 TAB PO QAM, TAB Omeprazole (Prilosec) 20 Mg Capcr 20 MG PO QAM, CAP Oxybutynin Chloride (Ditropan) 5 Mg Tab 1 TAB PO BID for 90 Days, #180 TAB 3 Refills Discontinued Medications: Acetaminophen (Tylenol) 500 Mg Tab 1000 MG PO PRN, TAB Discharge Exam Physical examination General patient appears to be comfortable, not in acute distress HEENT: Atraumatic , normocephalic /no jaundice /no pallor /anicteric /no dry mucous membrane /normal external ear inspection Neck: Supple /no swelling /central trach Heart: S1/S2 normal/regular rate and rhythm/no gallop /no rub /no murmur Lungs: Clear to auscultation bilaterally/normal chest with expansion/no rhonchi/ no rales/no wheezing/no use of accessory muscles of respiration Abdomen: Soft/nontender/no guarding/no rebound/no organomegaly/no pulsatile mass Musculoskeletal: No swelling/no edema/no tenderness/normal range of motion Neuro exam: Awake alert oriented 3/cranial nerves II through XII appear to be intact/sensation intact/moves all extremities/no abnormal movements Psychiatric evaluation: No depressed mood/normal affect Skin: No rash on exposed skin area/no erythema Extremity: Normal pulse/no pitting edema/no clubbing or cyanosis Endocrine/lymphatic: No obvious lymphadenopathy /no lymphedema Review of Systems: Constitutional: No fever, No chills, No sweats, No weight loss, No weakness , No fatigue, No problem reported Eyes: No worsening of vision, No eye pain, No redness, No discharge, No diplopia, No problem reported ENT: No hearing loss, No unusual epistaxis, No nasal symptoms, No sore throat, No tinnitus, No dental problems, No trouble swallowing, No problem reported Respiratory: No cough, No sputum, No wheezing, No shortness of breath, No dyspnea on exertion, No dyspnea at rest, No hemoptysis, No problem reported Cardiovascular: No chest pain, No orthopnea, No PND, No edema, No claudication, No palpitations, No problem reported Abdomen: No pain, No nausea, No vomiting, No diarrhea, No constipation, No GI bleeding, No problem reported Musculoskeletal: No joint pain, No muscle pain, No swelling, No calf pain, No problem reported Neurologic: No memory loss, No paralysis, No weakness, No numbness/tingling , No vertigo, No balance problems, No problem reported Psychiatric: No depression symptoms, No anhedonism, No anxiety, No insomnia , No substance abuse, No problem reported Endocrine: No fatigue, No excessive thirst, No excessive urination, No problem reported Hematologic / Lymphatic: No abnormal bleeding/bruising, No clotting problems , No swollen lymph nodes, No night sweats, No problem reported Integumentary: No rash, No itch, No new/changing skin lesions, No color change, No bleeding, No problem reported Hospital Course 72-year-old female with past medical history of COPD/emphysema, morbid obesity, hypertension and dyslipidemia presented to the hospital for an elective left breast lumpectomy. Developed acute on chronic respiratory failure with hypoxemia after the surgery. she used to beat 2L at night at home. after the surgery she required O2 supplement up to 3 L on rest. she was started on bronchodilators and steroids. event planning intern consulted for her chest pain, event planning intern was consulted; reported " Patient with persistent chest pain for > 24hrs. Pain positional and reproducible. Cardiac enzymes negative. ECG with artifact but no dynamic changes. Chest pain non-cardiac in nature." and cleared her for discharge. she was started on lasix 40mg and only then her O2 level improved. today she is on rm air on rest and ambulation instructed to do sleep study as an out patient for possible sleep apnea. Patient will need pulmonary function test in 6 weeks after resolution stable for discharge today on tapering dose of prednisone and lasix. echo summary * -- Conclusions -- * Technically limited. Images obtained in the upgright position. * There is mild concentric left ventricular hypertrophy. * Left ventricular systolic function is normal. * Aortic valve sclerosis moderate, without significant aortic valvular stenosis. Total Time Spent: Greater than 30 minutes This includes examination of the patient, discharge planning, medication reconciliation, and communication with other providers. Discharge Instructions Please refer to the electronic Patient Visit Report (Discharge Instructions) for additional information.
== END 2017-11-06 17:15 | disposition home or self-care (01) | DRG 584 ==
LOC: C.ACU 08:15 → C.2T 17:44 → ENRESERV 18:33
PROVIDERS: ADMIT Internal Medicine; ATTEND Surgery
PROC: 0HHU3YZ Insertion of Other Device into Left Breast, Percutaneous Approach (ICD-10-PCS; 2017-11-04)
PROC: 0HBU0ZX Excision of Left Breast, Open Approach, Diagnostic (ICD-10-PCS; principal; 2017-11-04 11:30)
DX: N63.20 Unspecified lump in the left breast, unspecified quadrant (principal); J95.822 Acute and chronic postprocedural respiratory failure; J95.89 Other postprocedural complications and disorders of respiratory system, not elsewhere classified; J44.1 Chronic obstructive pulmonary disease with (acute) exacerbation; I50.9 Heart failure, unspecified; I10 Essential (primary) hypertension; E78.5 Hyperlipidemia, unspecified; E66.01 Morbid (severe) obesity due to excess calories; M81.0 Age-related osteoporosis without current pathological fracture; F41.9 Anxiety disorder, unspecified; K21.9 Gastro-esophageal reflux disease without esophagitis; R06.02 Shortness of breath; R73.01 Impaired fasting glucose; N64.89 Other specified disorders of breast; E78.00 Pure hypercholesterolemia, unspecified; Z87.891 Personal history of nicotine dependence; Z78.9 Other specified health status; Z77.22 Contact with and (suspected) exposure to environmental tobacco smoke (acute) (chronic); Z82.49 Family history of ischemic heart disease and other diseases of the circulatory system; Z88.3 Allergy status to other anti-infective agents; Z80.3 Family history of malignant neoplasm of breast; Z80.1 Family history of malignant neoplasm of trachea, bronchus and lung

== ENCOUNTER → 2017-11-08 | Outpatient (CLI) | payer OTHER ==
[~2017-11-08] MED LIST changes: -ACET-1256 PO; -CEFAZOLIN 2000MG IV PUSH 15 ML IV SCH; +FURO40TA3 PO; +HYDR-5688 PO; -LACTATED RINGER'S 1000ML 1,000 ML IV SCH; +NEBMAC; +PRED10TA PO; +XPNINS1255 INH
[2017-11-08 16:33] LABS: BLOOD UREA NITROGEN 19 mg/dl (7-18); CARBON DIOXIDE 31 mmol/L (21-32); CREATININE 0.84 mg/dl (0.60-1.20); GLUCOSE 121 mg/dl (70-99); POTASSIUM 3.8 mmol/L (3.5-5.1); SODIUM 139 mmol/L (136-145)
== END | disposition home or self-care (01) ==
LOC: C.LABBFT 14:26
PROVIDERS: ATTEND Physician Assistant Medical
DX: I10 Essential (primary) hypertension (principal)

== ENCOUNTER → 2017-11-29 | Outpatient (CLI) | payer OTHER ==
[~2017-11-29] MED LIST changes: -NEBMAC
--- NOTE | 2017-11-29 10:41 | DIAGNOSTIC IMAGING REPORT ---
CT LUNG SCREENING, LOW DOSE WITH COMPUTER-AIDED DETECTION (CAD) CLINICAL HISTORY: Smoking history. Lung cancer screening. COMPARISON STUDY: Chest x-ray dated 11/05/2017. CT DOSE: 78.45 mGy.cm TECHNIQUE: Low-dose helical CT was acquired without intravenous contrast from lung apices to bases and reconstructed at 2.5 mm every 2 mm. CAD was utilized for this study. A dose lowering technique was utilized adhering to the principles of ALARA. FINDINGS: Thyroid: Imaged portions of the thyroid gland are normal in appearance. Thoracic aorta: There is atherosclerotic calcification of the thoracic aorta , which is normal in caliber and demonstrates standard 3 vessel arch anatomy. Heart: The heart is mildly enlarged and without pericardial effusion. The coronary arteries are densely calcified. Lungs and pleural spaces: Emphysematous change is noted. No airspace consolidation or pleural effusion is identified. A fat-containing Bochdalek hernia is seen at the right lung base. A 3 mm right lower lobe nodule is seen on image #76. 3 mm right upper lobe nodules are seen on images #58, #66, and #67. 3 mm left lower lobe nodules are seen on images #188 and #204. Scarring/atelectasis is present in the right middle lobe and lingula. Mild diffuse peribronchial thickening suggests reactive airway disease. Mediastinum: There is no mediastinal lymphadenopathy. Mamta: Normal assessed without IV contrast. Axilla: Clear. Upper abdomen: There is a tiny hiatal hernia. There is nodularity of the hepatic surface contour suggesting early change of cirrhosis. A 1.8 cm left adrenal nodule is suggested. Skeletal structures: The skeletal structures are osteopenic. There are no lytic or blastic osseous lesions. Soft tissues: There is a 7.5 x 5.1 cm masslike lesion in the left breast with overlying dermal thickening seen on image #124. IMPRESSION: 1. There is an approximately 7.5 x 5.1 cm masslike lesion identified in the left breast with overlying dermal thickening. This is highly concerning for neoplasm and follow-up at the breast center is recommended for further assessment. 2. Cardiomegaly and emphysema. 3. There are numerous (at least 7) pathologically indeterminant but low suspicion pulmonary nodules scattered throughout both lungs measuring up to 3 mm. Follow-up as below. 4. No airspace consolidation or pleural effusion is identified. 5. Nodularity of the hepatic surface contour suggests early change of cirrhosis. 6. A 1.8 cm left adrenal nodule is suspected but not well evaluated due to low dose technique. Consider follow-up unenhanced abdominal CT for further assessment Nodule 1 Category: 2 Nodule 1 Status: Baseline Nodule 1 Description: Solid Nodule 1 Lesion ID: 7 Nodule 1 Slice Number: 103 Nodule 1 Volume (mm3): 11 Nodule 1 Major [place] mm: 2.8 Nodule 1 Minor [place] mm: 2.8 Nodule 2 Category: 2 Nodule 2 Status: Baseline Nodule 2 Description: Solid Nodule 2 Lesion ID: 3 Nodule 2 Slice Number: 34 Nodule 2 Volume (mm3): 9 Nodule 2 Major [place] mm: 3.3 Nodule 2 Minor [place] mm: 2.5 Nodule 3 Category: 2 Nodule 3 Status: Baseline Nodule 3 Description: Solid Nodule 3 Lesion ID: 6 Nodule 3 Slice Number: 107 Nodule 3 Volume (mm3): 9 Nodule 3 Major [place] mm: 2.8 Nodule 3 Minor [place] mm: 2.8 Nodule 4 Category: 2 Nodule 4 Status: Baseline Nodule 4 Description: Solid Nodule 4 Lesion ID: 7 Nodule 4 Slice Number: 103 Nodule 4 Volume (mm3): 11 Nodule 4 Major [place] mm: 2.8 Nodule 4 Minor [place] mm: 2.8 Nodule 5 Category: 2 Nodule 5 Status: Baseline Nodule 5 Description: Solid Nodule 5 Lesion ID: 3 Nodule 5 Slice Number: 34 Nodule 5 Volume (mm3): 9 Nodule 5 Major [place] mm: 3.3 Nodule 5 Minor [place] mm: 2.5 CAD FINDINGS: Overall Lung RADS Category: 2 Lung RADS Management Recommendation: Continue annual lung cancer screening. Lung RADS Follow Up Date: 2018-11-29 Lung RADS Nodule ID: [id number] Electronically signed by: Kwame Short M.D. 11/29/2017 10:40 AM Dictated Date/Time: 11/29/2017 10:24 AM
== END | disposition home or self-care (01) ==
LOC: C.CTS 10:04
PROVIDERS: ATTEND Internal Medicine
DX: Z87.891 Personal history of nicotine dependence (principal)

== ENCOUNTER → 2017-12-06 | Outpatient (CLI) | payer OTHER ==
--- NOTE | 2017-12-06 12:32 | DIAGNOSTIC IMAGING REPORT ---
CT ABDOMEN NO IV/ORAL CONT (CT) CT DOSE: 463.29 mGycm CLINICAL HISTORY: Left adrenal nodule visualized on low dose lung screening CT study. TECHNIQUE: Unenhanced images were obtained through the upper abdomen without intravenous or oral contrast. A dose lowering technique was utilized adhering to the principles of ALARA. COMPARISON STUDY: Lung screening CT study dated 11/29/2017 FINDINGS: No hepatic masses are visualized this noncontrast study. The liver has a slightly nodular surface raising the possibility of early cirrhosis. No gallbladder abnormalities are visualized. No splenic masses are visualized. No pancreatic masses are visualized. There is a punctate nonobstructing right renal calculus versus vascular calcification. Bilateral renal vascular calcifications are evident. There is a 14 mm right renal cyst.. There is a 2 cm left adrenal gland nodule. This has a Hounsfield attenuation value of 4. This is indicative of a benign adenoma IMPRESSION: 1. 2 cm left adrenal adenoma. No further follow-up imaging is necessary. Electronically signed by: Kamari Mckay M.D. 12/06/2017 12:31 PM Dictated Date/Time: 12/06/2017 12:27 PM
== END | disposition home or self-care (01) ==
LOC: C.CTS 12:00
PROVIDERS: ATTEND Internal Medicine
DX: D35.00 Benign neoplasm of unspecified adrenal gland (principal); E27.9 Disorder of adrenal gland, unspecified

== ENCOUNTER 2019-11-02 11:50 | Inpatient (IN) ==
[2019-11-02] MEDS ORDERED: ALBUTEROL HFA 8 GM INHALER INH ONE (12:30)
--- NOTE | 2019-11-02 12:37 | Emergency Department Note ---
History of Present Illness General Chief complaint: Shortness of Breath/Dyspnea Stated complaint: COUGH, SOB Time Seen by Provider: 11/02/19 12:10 History of Present Illness Provider complaint: Shortness of breath/cough Onset (ago): day(s) 4 74-year-old female presents emergency department with cough and difficulty breathing for the last 4 days. She does have a history of asthma and COPD. She also reports feeling increasingly fatigued, chest pain also. She states the chest pain is not there currently. It was located substernally and felt like pressure it was mild. She also reports polyuria and dysuria 2 days ago which is since resolved. She also reports vomiting at that time. She reports that her polyuria has continued but the dysuria has gone. She reports no anosmia or loss of taste. She reports no recent travel or contact with anyone who is been novel coronavirus positive. Home Medications Home Medications Medication Instructions Recorded Confirmed Type budesonide-formoterol HFA 160 2 puffs INHALATION BID #1 gm 04/10/19 11/02/19 History mcg-4.5 mcg/actuation aerosol inhaler calcium 600 mg-D3 800 unit-mag11 1 tab PO QAM 04/10/19 11/02/19 History 50 aq-xaoy-gfeayk-aylin-s.borat tablet lorazepam 0.5 mg tablet 0.5 mg PO DAILY PRN #3 tab 04/10/19 11/02/19 History multivitamin-ferrous 1 tab PO QAM 04/10/19 11/02/19 History fumarate-folic acid 18 mg-400 mcg tablet omeprazole 20 mg capsule,delayed 20 mg PO QAM #90 cap 04/10/19 11/02/19 History release Oxygen Home #1 ea 04/28/19 08/03/19 Rx oxybutynin chloride 5 mg tablet 5 mg PO BID #180 tab 08/06/19 11/02/19 Rx metoprolol succinate 100 mg 100 mg PO BID #180 tab 09/14/19 11/02/19 Rx tablet,extended release 24 hr ipratropium 0.5 mg-albuterol 3 mg 3 ml INHALATION QID #360 ml 10/20/19 11/02/19 Rx (2.5 mg base)/3 mL nebulization soln alendronate [Fosamax] 70 mg PO GUZMAN 11/02/19 11/02/19 History atorvastatin 20 mg PO QAM 11/02/19 11/02/19 History Allergies Allergy/AdvReac Type Severity Reaction Status Date / Time tramadol Allergy Intermediate Rash Verified 10/20/19 14:11 Past Med/Surg History Medical History Anxiety Asthma stable Chronic obstructive pulmonary disease stable GERD (gastroesophageal reflux disease) controlled Hyperlipidemia Hypertension Impaired fasting glucose Memory loss mild On home oxygen therapy Nocturnal hypoxia- 2lpm via nasal cannula at Osteoarthritis Peripheral neuropathy bilateral feet Poor historian Surgical History H/O removal of cyst right axillary History of adenoidectomy History of appendectomy History of cataract surgery bilateral History of colonoscopy History of ear surgery EXCISION OF RIGHT EAR LOBE LESION History of hernia repair pt denies History of oral surgery History of tonsillectomy x7 Hx of breast surgery Excisional biopsy, left breast: 11/04/17: MAC#4, ETT [address] [facility] S/P left knee surgery S/P MARCELLA-BSO Family History Sister Diabetes Myocardial infarction Lung cancer Father Hypertension Brother Lung cancer Mother Myocardial infarction Other Breast cancer No family history of bleeding disorder Denies family history of Ovarian cancer Prostate cancer Colorectal cancer Social History Preferred Language: Tunisian Communication Ability: Effective Visual Specialist Required: No Beliefs That Will Affect Care: None marital status: Current Living Situation: Spouse current occupational status: retired Feels Safe at Home: Yes Smoking Status: Former smoker Tobacco Type: cigarettes ; Second Hand Exposure: Yes ; Hx Alcohol Use: No Hx Substance Use: No Dental Care, Regularly: Yes Physical Activity Frequency: Does not Exercise Review of Systems A total of 10 systems reviewed and were otherwise negative Physical Exam Vital Signs Vital Signs - 24 hr 11/02/19 12:02 11/02/19 13:01 11/02/19 13:13 Temperature 36.9 C Temperature Source Oral Pulse Rate 63 50 L Pulse Rate from SpO2 Sensor 51 L Pulse Rhythm Regular Pulse Strength Normal Respiratory Rate 26 H 14 Respiratory Effort / Characteristics Non-Labored Spontaneous Respiratory Depth Normal Respiratory Pattern Regular Blood Pressure 201/82 H 206/85 H Blood Pressure Mean 121 162 Blood Pressure Position Lying Pulse Oximetry 93 100 87 L Oxygen Delivery Method Room Air Nasal Cannula Room Air Oxygen Flow Rate 2 Sepsis Recent Fever Within 48 Hours No Sepsis New/Unexplained Change in Mental Status No Sepsis Action Taken by Nursing No Action Required Oxygen Flow Rate - Titration 2 Pulse Oximetry Post Tiitration 99 11/02/19 13:15 11/02/19 13:26 11/02/19 13:28 Temperature Temperature Source Pulse Rate 53 L 65 Pulse Rate from SpO2 Sensor 53 L 51 L Pulse Rhythm Pulse Strength Respiratory Rate 22 16 Respiratory Effort / Characteristics Respiratory Depth Respiratory Pattern Blood Pressure 217/105 H 236/95 H Blood Pressure Mean 142 128 Blood Pressure Position Pulse Oximetry 100 94 97 Oxygen Delivery Method Nasal Cannula Nasal Cannula Nasal Cannula Oxygen Flow Rate 2 2 2 Sepsis Recent Fever Within 48 Hours Sepsis New/Unexplained Change in Mental Status Sepsis Action Taken by Nursing Oxygen Flow Rate - Titration Pulse Oximetry Post Tiitration 11/02/19 13:31 11/02/19 13:36 11/02/19 14:00 Temperature Temperature Source Pulse Rate 70 51 L Pulse Rate from SpO2 Sensor 52 L 52 L Pulse Rhythm Pulse Strength Respiratory Rate 18 20 Respiratory Effort / Characteristics Spontaneous Respiratory Depth Normal Respiratory Pattern Regular Blood Pressure 188/90 H 201/95 H Blood Pressure Mean 148 161 Blood Pressure Position Pulse Oximetry 100 100 Oxygen Delivery Method Nasal Cannula Nasal Cannula Nasal Cannula Oxygen Flow Rate 2 2 2 Sepsis Recent Fever Within 48 Hours Sepsis New/Unexplained Change in Mental Status Sepsis Action Taken by Nursing Oxygen Flow Rate - Titration Pulse Oximetry Post Tiitration 11/02/19 14:30 11/02/19 15:13 11/02/19 15:30 Temperature Temperature Source Pulse Rate 47 L 53 L 50 L Pulse Rate from SpO2 Sensor 47 L 53 L 51 L Pulse Rhythm Pulse Strength Respiratory Rate 19 19 15 Respiratory Effort / Characteristics Respiratory Depth Respiratory Pattern Blood Pressure 193/102 H 197/97 H 188/107 H Blood Pressure Mean 163 153 144 Blood Pressure Position Pulse Oximetry 100 98 99 Oxygen Delivery Method Nasal Cannula Nasal Cannula Nasal Cannula Oxygen Flow Rate 2 2 2 Sepsis Recent Fever Within 48 Hours Sepsis New/Unexplained Change in Mental Status Sepsis Action Taken by Nursing Oxygen Flow Rate - Titration Pulse Oximetry Post Tiitration Physical Exam HENT: Exam performed. -Head: Normocephalic and atraumatic. -Right Ear: External ear normal. No mastoid tenderness. -Left Ear: External ear normal. No mastoid tenderness. -Mouth/Throat: The oropharynx is clear and moist. No trismus in the jaw. No dental abscesses or uvula swelling. No oropharyngeal exudate or tonsillar abscesses. EYES: Conjunctivae and EOM are normal. Pupils are equal, round, and reactive to light. Right eye exhibits no discharge. Left eye exhibits no discharge. No scleral icterus. NECK: Normal range of motion. Neck supple. No JVD present. No spinous process tenderness present. No carotid bruit present. No rigidity. No tracheal deviation and normal range of motion present. No Brudzinski's sign and no Kernig's sign noted. CV: Normal rate, regular rhythm, normal heart sounds and intact distal pulses. There is no peripheral edema. Palpable radial pulses bue. PULM/CHEST: Tachypneic. Inspiratory rales. Diffuse expiratory wheezes. -Chest Wall: She exhibits no tenderness. ABD: The abdomen is soft. Bowel sounds are normal. She has no distension. No mass is present. There is no tenderness. There is no rebound, no guarding, no Sierra's sign and no tenderness at McBurney's point. Rovsig negative MUSC/SKEL: Normal range of motion. There is no peripheral edema, tenderness or deformity. LYMPH: No cervical adenopathy. NEURO: She is alert and oriented to person, place, and time. She has normal strength. No cranial nerve deficit or sensory deficit. Coordination and gait normal. GCS eye subscore is 4. GCS verbal subscore is 5. GCS motor subscore is 6. Cerebellar tests wnl. SKIN: Skin is warm and dry. She is not diaphoretic. PSYCH: She has a normal mood and affect. Behavior is normal. Judgment and thought content normal. Course Course 1215: The patient was evaluated in room C10. A complete history and physical exam was performed. Patient was placed on cardiac and pulse oximetry monitor. Patient was found to have a low oxygen saturation 88% on room air. She is extremely tachypneic. She is started on oxygen via nasal cannula. She was placed on airborne precautions for possible novel coronavirus. She will be given albuterol MDI. Cardiac monitoring: An order was placed for continuous cardiac monitoring. The monitor shows a rate of 60 with sinus rhythm Administered Medications Discontinued Medications Albuterol (Ventolin Hfa) 4 puffs INH NOW ONE Stop: 11/02/19 12:31 Last Admin: 11/02/19 13:07 Dose: 60 puffs Documented by: [id number] Critical Care Time Critical Care Time: Yes I have personally spent greater than 76 minutes of critical care time in the direct management of this patient. This includes bedside care, interpretation of diagnostic studies, and testing, discussion with consultants, patient, and family members, and other required patient management activities. This 76 minutes is in excess of all separately billable procedures. Medical Decision Making Laboratory Data Result diagrams: 11/02/19 12:51 11/02/19 12:51 Lab Results 11/02/19 11/02/19 11/02/19 Range/Units 12:51 12:51 12:51 WBC 7.05 (4.8-10.8) K/uL RBC 4.54 (4.2-5.4) M/uL Hgb 12.9 (12.0-16.0) g/dL Hct 40.7 (37-47) % MCV 89.6 (80-100) fL MCH 28.4 (25-34) pg MCHC 31.7 L (32-36) g/dL RDW Std Deviation 45.8 (36.4-46.3) fL RDW Coeff of Jose C 14.0 (11.5-14.5) % Plt Count 226 (130-400) K/uL MPV 10.6 H (7.4-10.4) fL Immature Gran % (Auto) 0.3 % Neut % (Auto) 70.3 % Lymph % (Auto) 18.9 % [place] % (Auto) 6.7 % Eos % (Auto) 3.1 % Baso % (Auto) 0.7 % Immature Gran # (Auto) 0.02 (0.00-0.02) K/uL Neut # (Auto) 4.96 (1.4-6.5) K/uL Lymph # (Auto) 1.33 (1.2-3.4) K/uL [place] # (Auto) 0.47 (0.11-0.59) K/uL Eos # (Auto) 0.22 (0-0.5) K/uL Baso # (Auto) 0.05 (0-0.2) K/uL PT 10.8 (9.0-12.0) Seconds INR 1.0 (0.9-1.1) APTT 23.5 (21.0-31.0) Seconds PTT Ratio 0.8 VBG pH (7.36-7.41) VBG pCO2 (38-50) mmHg VBG pO2 mmHg VBG HCO3 mmol/L VBG O2 Saturation % VBG Base Excess mEq/L Barometric Pressure mm/Hg Sodium 138 (136-145) mmol/L Potassium 4.5 (3.5-5.1) mmol/L Chloride 103 (98-107) mmol/L Carbon Dioxide 32 (21-32) mmol/L Anion Gap 3.0 (3-11) BUN 15 (7-18) mg/dl Creatinine 0.78 (0.6-1.2) mg/dl Est Cr Clr Drug Dosing 60.6 ml/min Est GFR ( Amer) 85.6 Est GFR (Non-Af Amer) 73.8 BUN/Creatinine Ratio 19.7 (10-20) Glucose 102 H (70-99) mg/dl Lactate (0.4-2.0) mmol/L Calcium 8.9 (8.5-10.1) mg/dl Magnesium 2.1 (1.8-2.4) mg/dl Total Bilirubin 0.5 (0.2-1) mg/dl AST 18 (15-37) U/L ALT 35 (12-78) U/L Alkaline Phosphatase 102 (45-117) U/L Troponin I < 0.015 (0-0.045) ng/ml Total Protein 7.0 (6.4-8.2) gm/dl Albumin 3.5 (3.4-5.0) gm/dl Globulin 3.5 (2.5-4.0) gm/dl Albumin/Globulin Ratio 1.0 (0.9-2) Procalcitonin (0-0.5) ng/ml Urine Color Urine Appearance (Clear) Urine pH (4.5-7.5) Ur Specific Joseph (1.000-1.030) Urine Protein (Negative) Urine Glucose (UA) (Negative) Urine Ketones (Negative) Urine Blood (Negative) Urine Nitrite (Negative) Urine Bilirubin (Negative) Urine Urobilinogen (Negative) Ur Leukocyte Esterase (Negative) Adenovirus (PCR) (NotDetected) B. pertussis DNA (PCR) (NotDetected) B.parapertussis DNA PCR (NotDetected) C. pneumoniae DNA (PCR) (NotDetected) Coronavirus OC43 (PCR) (NotDetected) Coronavirus HKU1 (PCR) (NotDetected) Coronavirus 229E (PCR) (NotDetected) Coronavirus NL63 (PCR) (NotDetected) Human Metapneumovir PCR (NotDetected) Influenza Type A (PCR) Influenza Type B (PCR) M. pneumoniae (PCR) (NotDetected) Parainfluenza 1 (PCR) (NotDetected) Parainfluenza 2 (PCR) (NotDetected) Parainfluenza 3 (PCR) (NotDetected) Parainfluenza 4 (PCR) (NotDetected) RSV (PCR) (NotDetected) Entero/Rhino (PCR) (NotDetected) 11/02/19 11/02/19 11/02/19 Range/Units 12:51 12:52 12:52 WBC (4.8-10.8) K/uL RBC (4.2-5.4) M/uL Hgb (12.0-16.0) g/dL Hct (37-47) % MCV (80-100) fL MCH (25-34) pg MCHC (32-36) g/dL RDW Std Deviation (36.4-46.3) fL RDW Coeff of Jose C (11.5-14.5) % Plt Count (130-400) K/uL MPV (7.4-10.4) fL Immature Gran % (Auto) % Neut % (Auto) % Lymph % (Auto) % [place] % (Auto) % Eos % (Auto) % Baso % (Auto) % Immature Gran # (Auto) (0.00-0.02) K/uL Neut # (Auto) (1.4-6.5) K/uL Lymph # (Auto) (1.2-3.4) K/uL [place] # (Auto) (0.11-0.59) K/uL Eos # (Auto) (0-0.5) K/uL Baso # (Auto) (0-0.2) K/uL PT (9.0-12.0) Seconds INR (0.9-1.1) APTT (21.0-31.0) Seconds PTT Ratio VBG pH (7.36-7.41) VBG pCO2 (38-50) mmHg VBG pO2 mmHg VBG HCO3 mmol/L VBG O2 Saturation % VBG Base Excess mEq/L Barometric Pressure mm/Hg Sodium (136-145) mmol/L Potassium (3.5-5.1) mmol/L Chloride (98-107) mmol/L Carbon Dioxide (21-32) mmol/L Anion Gap (3-11) BUN (7-18) mg/dl Creatinine (0.6-1.2) mg/dl Est Cr Clr Drug Dosing ml/min Est GFR ( Amer) Est GFR (Non-Af Amer) BUN/Creatinine Ratio (10-20) Glucose (70-99) mg/dl Lactate (0.4-2.0) mmol/L Calcium (8.5-10.1) mg/dl Magnesium (1.8-2.4) mg/dl Total Bilirubin (0.2-1) mg/dl AST (15-37) U/L ALT (12-78) U/L Alkaline Phosphatase (45-117) U/L Troponin I (0-0.045) ng/ml Total Protein (6.4-8.2) gm/dl Albumin (3.4-5.0) gm/dl Globulin (2.5-4.0) gm/dl Albumin/Globulin Ratio (0.9-2) Procalcitonin < 0.05 (0-0.5) ng/ml Urine Color Urine Appearance (Clear) Urine pH (4.5-7.5) Ur Specific Joseph (1.000-1.030) Urine Protein (Negative) Urine Glucose (UA) (Negative) Urine Ketones (Negative) Urine Blood (Negative) Urine Nitrite (Negative) Urine Bilirubin (Negative) Urine Urobilinogen (Negative) Ur Leukocyte Esterase (Negative) Adenovirus (PCR) Not Detected (NotDetected) B. pertussis DNA (PCR) Not Detected (NotDetected) B.parapertussis DNA PCR Not Detected (NotDetected) C. pneumoniae DNA (PCR) Not Detected (NotDetected) Coronavirus OC43 (PCR) Not Detected (NotDetected) Coronavirus HKU1 (PCR) Not Detected (NotDetected) Coronavirus 229E (PCR) Not Detected (NotDetected) Coronavirus NL63 (PCR) Not Detected (NotDetected) Human Metapneumovir PCR Not Detected (NotDetected) Influenza Type A (PCR) Cancelled Not Detected Influenza Type B (PCR) Cancelled Not Detected M. pneumoniae (PCR) Not Detected (NotDetected) Parainfluenza 1 (PCR) Not Detected (NotDetected) Parainfluenza 2 (PCR) Not Detected (NotDetected) Parainfluenza 3 (PCR) Not Detected (NotDetected) Parainfluenza 4 (PCR) Not Detected (NotDetected) RSV (PCR) Not Detected (NotDetected) Entero/Rhino (PCR) Not Detected (NotDetected) 11/02/19 11/02/19 11/02/19 Range/Units 13:18 13:18 13:20 WBC (4.8-10.8) K/uL RBC (4.2-5.4) M/uL Hgb (12.0-16.0) g/dL Hct (37-47) % MCV (80-100) fL MCH (25-34) pg MCHC (32-36) g/dL RDW Std Deviation (36.4-46.3) fL RDW Coeff of Jose C (11.5-14.5) % Plt Count (130-400) K/uL MPV (7.4-10.4) fL Immature Gran % (Auto) % Neut % (Auto) % Lymph % (Auto) % [place] % (Auto) % Eos % (Auto) % Baso % (Auto) % Immature Gran # (Auto) (0.00-0.02) K/uL Neut # (Auto) (1.4-6.5) K/uL Lymph # (Auto) (1.2-3.4) K/uL [place] # (Auto) (0.11-0.59) K/uL Eos # (Auto) (0-0.5) K/uL Baso # (Auto) (0-0.2) K/uL PT (9.0-12.0) Seconds INR (0.9-1.1) APTT (21.0-31.0) Seconds PTT Ratio VBG pH 7.33 L (7.36-7.41) VBG pCO2 64 H (38-50) mmHg VBG pO2 23 mmHg VBG HCO3 33 mmol/L VBG O2 Saturation < 60.0 % VBG Base Excess 4.8 mEq/L Barometric Pressure 733.7 mm/Hg Sodium (136-145) mmol/L Potassium (3.5-5.1) mmol/L Chloride (98-107) mmol/L Carbon Dioxide (21-32) mmol/L Anion Gap (3-11) BUN (7-18) mg/dl Creatinine (0.6-1.2) mg/dl Est Cr Clr Drug Dosing ml/min Est GFR ( Amer) Est GFR (Non-Af Amer) BUN/Creatinine Ratio (10-20) Glucose (70-99) mg/dl Lactate 0.6 (0.4-2.0) mmol/L Calcium (8.5-10.1) mg/dl Magnesium (1.8-2.4) mg/dl Total Bilirubin (0.2-1) mg/dl AST (15-37) U/L ALT (12-78) U/L Alkaline Phosphatase (45-117) U/L Troponin I (0-0.045) ng/ml Total Protein (6.4-8.2) gm/dl Albumin (3.4-5.0) gm/dl Globulin (2.5-4.0) gm/dl Albumin/Globulin Ratio (0.9-2) Procalcitonin (0-0.5) ng/ml Urine Color Yellow Urine Appearance Clear (Clear) Urine pH 8.0 H (4.5-7.5) Ur Specific Joseph 1.007 (1.000-1.030) Urine Protein Negative (Negative) Urine Glucose (UA) Negative (Negative) Urine Ketones Negative (Negative) Urine Blood Negative (Negative) Urine Nitrite Negative (Negative) Urine Bilirubin Negative (Negative) Urine Urobilinogen Negative (Negative) Ur Leukocyte Esterase Negative (Negative) Adenovirus (PCR) (NotDetected) B. pertussis DNA (PCR) (NotDetected) B.parapertussis DNA PCR (NotDetected) C. pneumoniae DNA (PCR) (NotDetected) Coronavirus OC43 (PCR) (NotDetected) Coronavirus HKU1 (PCR) (NotDetected) Coronavirus 229E (PCR) (NotDetected) Coronavirus NL63 (PCR) (NotDetected) Human Metapneumovir PCR (NotDetected) Influenza Type A (PCR) Influenza Type B (PCR) M. pneumoniae (PCR) (NotDetected) Parainfluenza 1 (PCR) (NotDetected) Parainfluenza 2 (PCR) (NotDetected) Parainfluenza 3 (PCR) (NotDetected) Parainfluenza 4 (PCR) (NotDetected) RSV (PCR) (NotDetected) Entero/Rhino (PCR) (NotDetected) Imaging Data Radiologist's Impression: XR chest 1V portable CLINICAL HISTORY: 74 years-old Female presenting with SEPSIS. TECHNIQUE: Portable upright AP view of the chest was obtained. COMPARISON: 05/14/2019. FINDINGS: Atherosclerosis of the aortic arch. Cardiac silhouette enlarged. Mild pulmonary vascular prominence. Mild interstitial prominence. Mildly elevated lung volumes as on prior exam. Minimal bandlike opacities at the right lung base. A small left pleural effusion may be present. No pneumothorax. Degenerative changes of the thoracic spine. IMPRESSION: 1. Minimal right asymmetric or atelectasis suspected. 2. Small left pleural effusion new from prior. 3. Cardiomegaly with mild volume overload and potentially mild congestive change. No jonathan pulmonary edema. ACT 112: Negative or not required by law. Electronically signed by: Anderson Godfrey M.D. 11/02/2019 1:51 PM Dictated: 11/02/19 1342 Transcribed: 11/02/19 1342 ECG Data Rate (beats per minute): 50 Rhythm: + sinus bradycardia ECG Intervals/blocks: + Normal QRS, + Normal [place] and + Normal QT-c ECG ST segments: + Normal ST segments MDM Narrative Vital signs stable on supplemental oxygen via nasal cannula. Patient's oxygen saturation is stable on supplemental oxygen. Chest x-ray shows cardiomegaly with mild volume overload. Labs within normal limits with the exception of a VBG which showed a PCO2 of 64 and pH of 7.33. Urinalysis and bio fire negative. Given the patient's symptoms and history of chronic lung disease, she was tested for novel coronavirus. Patient will be admitted to [facility] hospitalist service on airborne precautions. Impression & Plan Hypoxia, COPD (chronic obstructive pulmonary disease), Suspected COVID-19 virus infection Discharge Plan Visit Data Chief Complaint: Shortness of Breath/Dyspnea Stated Complaint: COUGH, SOB ED Provider: Bonifacio Bowman Discharge Problem: Hypoxia, COPD (chronic obstructive pulmonary disease), Suspected COVID-19 virus infection Patient Disposition: Admitted As Inpatient Forms Stand Alone Forms: My [facility] Prescriptions Prescriptions: No Action (DME) Oxygen Home Liters Per Minute See Dose Instructions .ROUTE .MEDSUPPLY Qty: 1 RF: 0 oxybutynin chloride 5 mg tablet 5 mg PO BID Qty: 180 RF: 1 metoprolol succinate 100 mg tablet extended release 24 hr 100 mg PO BID Qty: 180 RF: 3 ipratropium-albuterol 0.5 mg-3 mg(2.5 mg base)/3 mL solution for nebulization 3 ml inhalation QID Qty: 360 RF: 3 Caltrate 600-D Plus Minerals 600 mg calcium- 800 unit-50 mg tablet 1 tab PO QAM RF: 0 Centrum Complete 18-400 mg-mcg tablet 1 tab PO QAM RF: 0 lorazepam [Ativan] 0.5 mg tablet 0.5 mg PO DAILY PRN (Reason: anxiety) Qty: 3 RF: 0 omeprazole 20 mg capsule,delayed release(DR/EC) 20 mg PO QAM Qty: 90 RF: 0 Symbicort 160-4.5 mcg/actuation HFA aerosol inhaler 2 puffs inhalation BID Qty: 1 RF: 0 atorvastatin 20 mg tablet 20 mg PO QAM RF: 0 alendronate [Fosamax] 70 mg tablet 70 mg PO GUZMAN RF: 0 Referrals Referrals: Stevenson Zendejas III, MD [Primary Care Provider] - Discharge Problem: COPD (chronic obstructive pulmonary disease) Qualifiers: COPD type: unspecified COPD Qualified Code(s): J44.9 - Chronic obstructive pulmonary disease, unspecified
[2019-11-02 13:36] LABS: Base Excess VBG 4.8 mEq/L; HCO3 VBG 33 mmol/L; PCO2 VBG 64 mmHg (38-50); PO2 VBG 23 mmHg; pH VBG 7.33 (7.36-7.41)
[2019-11-02 13:43] LABS: Oxygen Saturation VBG < 60.0 %
[2019-11-02 13:44] LABS: Basophils # (auto) 0.05 K/uL (0-0.2); Basophils % (auto) 0.7 %; Eosinophils # (auto) 0.22 K/uL (0-0.5); Eosinophils % (auto) 3.1 %; Hematocrit (blood only) 40.7 % (37-47); Hemoglobin 12.9 g/dL (12.0-16.0); Immature Granulocytes # (auto) 0.02 K/uL (0.00-0.02); Immature Granulocytes % (auto) 0.3 %; Lymphocytes # (auto) 1.33 K/uL (1.2-3.4); Lymphocytes % (auto) 18.9 %; Mean Corpuscular Hemoglobin 28.4 pg (25-34); Mean Corpuscular Hgb Conc 31.7 g/dL (32-36); Mean Corpuscular Volume 89.6 fL (80-100); Mean Platelet Volume 10.6 fL (7.4-10.4); Monocytes # (auto) 0.47 K/uL (0.11-0.59); Monocytes % (auto) 6.7 %; Neutrophils # (auto) 4.96 K/uL (1.4-6.5); Neutrophils % (auto) 70.3 %; Platelet Count 226 K/uL (130-400); RDW Standard Deviation 45.8 fL (36.4-46.3); Red Blood Count 4.54 M/uL (4.2-5.4); White Blood Count 7.05 K/uL (4.8-10.8)
[2019-11-02 13:48] LABS: Appearance Urine Clear (Clear); Bilirubin Urine Negative (Negative); Blood Urine Negative (Negative); Color Urine Yellow; Glucose Urine UA Negative (Negative); Ketones Urine Negative (Negative); Leukocyte Esterase Urine Negative (Negative); Nitrite Urine Negative (Negative); Protein Urine Negative (Negative); Specific Gravity Urine 1.007 (1.000-1.030); Urobilinogen Urine Negative (Negative)
[2019-11-02 13:51] LABS: Partial Thromboplastin Ratio 0.8; Partial Thromboplastin Time 23.5 Seconds (21.0-31.0); Prothrombin Time 10.8 Seconds (9.0-12.0)
--- NOTE | 2019-11-02 13:53 | XRay Report ---
XR chest 1V portable CLINICAL HISTORY: 74 years-old Female presenting with SEPSIS. TECHNIQUE: Portable upright AP view of the chest was obtained. COMPARISON: 05/14/2019. FINDINGS: Atherosclerosis of the aortic arch. Cardiac silhouette enlarged. Mild pulmonary vascular prominence. Mild interstitial prominence. Mildly elevated lung volumes as on prior exam. Minimal bandlike opaciti es at the right lung base. A small left pleural effusion may be present. No pneumothorax. Degenerativ e changes of the thoracic spine. IMPRESSION: 1. Minimal right asymmetric or atelectasis suspected. 2. Small left pleural effusion new from prior. 3. Cardiomegaly with mild volume overload and potentially mild congestive change. No jonathan pulmonary edema. ACT 112: Negative or not required by law. Electronically signed by: Anderson Godfrey M.D. 11/02/2019 1:51 PM
[2019-11-02 14:06] LABS: Alanine Aminotransferase 35 U/L (12-78); Albumin Level 3.5 gm/dl (3.4-5.0); Aspartate Aminotransferase 18 U/L (15-37); BUN Creatinine Ratio 19.7 (10-20); Blood Urea Nitrogen 15 mg/dl (7-18); Calcium 8.9 mg/dl (8.5-10.1); Carbon Dioxide 32 mmol/L (21-32); Chloride 103 mmol/L (98-107); Creatinine Clr Calc Pharmacy 60.6 ml/min; Est GFR (African American) 85.6; Est GFR (Non-African American) 73.8; Glucose 102 mg/dl (70-99); Magnesium 2.1 mg/dl (1.8-2.4); Potassium 4.5 mmol/L (3.5-5.1); Sodium 138 mmol/L (136-145)
[2019-11-02 14:11] LABS: Alkaline Phosphatase 102 U/L (45-117); Bilirubin,Total 0.5 mg/dl (0.2-1); Globulin 3.5 gm/dl (2.5-4.0); Troponin I < 0.015 ng/ml (0-0.045)
[2019-11-02 14:28] LABS: Adenovirus PCR Not Detected (NotDetected); Bordetella parapertussis PCR Not Detected (NotDetected); Bordetella pertussis PCR Not Detected (NotDetected); Chlamydia pneumoniae PCR Not Detected (NotDetected); Coronavirus 229E PCR Not Detected (NotDetected); Coronavirus HKU1 PCR Not Detected (NotDetected); Coronavirus NL63 PCR Not Detected (NotDetected); Coronavirus OC43PCR Not Detected (NotDetected); Human Metapneumovirus PCR Not Detected (NotDetected); Influenza A PCR Not Detected (NotDetected); Influenza B PCR Not Detected (NotDetected); Mycoplasma pneumoniae PCR Not Detected (NotDetected); Parainfluenza Virus 1 PCR Not Detected (NotDetected); Parainfluenza Virus 2 PCR Not Detected (NotDetected); Parainfluenza Virus 3 PCR Not Detected (NotDetected); Parainfluenza Virus 4 PCR Not Detected (NotDetected); Respiratory Syncytial VirusPCR Not Detected (NotDetected); Rhinovirus/Enterovirus PCR Not Detected (NotDetected)
--- NOTE | 2019-11-02 15:07 | Electrocardiogram Report ---
Test Reason : Blood Pressure : / mmHG Vent. Rate : 050 BPM Atrial Rate : 050 BPM P-R Int : 162 ms QRS Dur : 076 ms QT Int : 448 ms P-R-T Axes : -03 097 040 degrees QTc Int : 408 ms Poor data quality, interpretation may be adversely affected Sinus bradycardia Rightward axis Borderline ECG When compared with ECG of 14-MAY-2019 13:15, QRS axis Shifted right Confirmed by Sukh Jacobs ([id number]) on 11/02/2019 3:06:39 PM Referred By: REFERRED SELF Confirmed By:Sukh Jacobs
--- NOTE | 2019-11-02 15:20 | History & Physical Report ---
Date of Service November 02, 2019 Assessment & Plan (1) COPD (chronic obstructive pulmonary disease): (2) Acute and chronic respiratory failure with hypoxia: -Admit to PCU -Continue droplet/airborne precautions as PUI for COVID-19 -Bio fire negative, covid pending -Initially had O2 sats in 80s on arrival to the ER, improved to 100% on 2 L via NC, patient does wear CPAP at bedtime -Continue supportive therapy -Probable COPD exacerbation currently, will order Solu-Medrol 60 mg IV now with continued wheezing throughout on exam, patient received Ventolin inhaler puffs in the ER, no nebs due to trying to reduce aerosolization if positive covid. Continue Solu-Medrol 40 mg every 12 thereafter -Sputum culture -Mucinex, O2, Tessalon Perles, Ventolin inhaler (3) Hypertension: -193/102 -Continue metoprolol succinate 100 mg twice daily, will add on hydralazine prn with parameters for improvement of blood pressure, patient and patient's son report that she is an anxious person, likely being in the hospital exacerbates her hypertension, continue to monitor. (4) Hypercholesteremia: -'s chronic, stable (5) Osteoporosis: -Continue calcium and vitamin D supplementation (6) DVT prophylaxis: -Lovenox subcu CODE STATUS full code Disposition: Patient from home, likely to remain in the hospital x1 to 2 days History of Present Illness Primary Care Provider: Steevnson Zendejas MD This is a 74 yo F with PMHx of acute on chronic respiratory failure with hypoxia in the setting of COPD, HTN, HLD, history of tobacco use x50 years, quit 7 years ago, impaired fasting glucose who presents with acute worsening of cough and shortness of breath. Patient notes that she wore her typical CPAP machine overnight, and when she awoke this morning she felt lightheaded when she was attempting to get out of bed and catch her breath, she noticed worsening cough as well as yellow sputum production. She typically does not need to wear oxygen, however put herself on 2 L via NC at home due to work of breathing. Upon presentation here in ER she was found to have sats in the low 80s, and was placed on O2 continuous and has improved with O2 sats into the high 90s at bedside. Her blood pressure was initially elevated greater than 200/110, but has not significantly improved. She did take all her morning medications including metoprolol succinate 100 mg BID today. She denies any fevers, reports chills. She denies any contacts with COVID-19 positive people, recent travel, loss of taste or smell. She was in contact with her son who brought her to the ER this morning. I spoke with her son on the phone at bedside during my visit, and updated him on all care and answered his questions and concerns. Allergies Allergy/AdvReac Type Severity Reaction Status Date / Time tramadol Allergy Intermediate Rash Verified 10/20/19 14:11 Home Medications Home Medications Medication Instructions Recorded Confirmed Type budesonide-formoterol HFA 160 2 puffs INHALATION BID #1 gm 04/10/19 11/02/19 History mcg-4.5 mcg/actuation aerosol inhaler calcium 600 mg-D3 800 unit-mag11 1 tab PO QAM 04/10/19 11/02/19 History 50 zo-awam-lvfijt-aylin-s.borat tablet lorazepam 0.5 mg tablet 0.5 mg PO DAILY PRN #3 tab 04/10/19 11/02/19 History multivitamin-ferrous 1 tab PO QAM 04/10/19 11/02/19 History fumarate-folic acid 18 mg-400 mcg tablet omeprazole 20 mg capsule,delayed 20 mg PO QAM #90 cap 04/10/19 11/02/19 History release Oxygen Home #1 ea 04/28/19 08/03/19 Rx oxybutynin chloride 5 mg tablet 5 mg PO BID #180 tab 08/06/19 11/02/19 Rx metoprolol succinate 100 mg 100 mg PO BID #180 tab 09/14/19 11/02/19 Rx tablet,extended release 24 hr ipratropium 0.5 mg-albuterol 3 mg 3 ml INHALATION QID #360 ml 10/20/19 11/02/19 Rx (2.5 mg base)/3 mL nebulization soln alendronate [Fosamax] 70 mg PO GUZMAN 11/02/19 11/02/19 History atorvastatin 20 mg PO QAM 11/02/19 11/02/19 History Past Med/Surg History Medical History Anxiety Asthma stable Chronic obstructive pulmonary disease stable GERD (gastroesophageal reflux disease) controlled Hyperlipidemia Hypertension Impaired fasting glucose Memory loss mild On home oxygen therapy Nocturnal hypoxia- 2lpm via nasal cannula at Osteoarthritis Peripheral neuropathy bilateral feet Poor historian Surgical History H/O removal of cyst right axillary History of adenoidectomy History of appendectomy History of cataract surgery bilateral History of colonoscopy History of ear surgery EXCISION OF RIGHT EAR LOBE LESION History of hernia repair pt denies History of oral surgery History of tonsillectomy x7 Hx of breast surgery Excisional biopsy, left breast: 11/04/17: MAC#4, ETT 7.0 at [facility] S/P left knee surgery S/P MARCELLA-BSO Family History Sister Diabetes Myocardial infarction Lung cancer Father Hypertension Brother Lung cancer Mother Myocardial infarction Other Breast cancer No family history of bleeding disorder Denies family history of Ovarian cancer Prostate cancer Colorectal cancer Social History Preferred Language: Tajik Communication Ability: Effective [employer] Equipment Mechanic Required: No Beliefs That Will Affect Care: None marital status: Current Living Situation: Spouse current occupational status: retired Feels Safe at Home: Yes Smoking Status: Former smoker Tobacco Type: cigarettes ; Second Hand Exposure: Yes ; Hx Alcohol Use: No Hx Substance Use: No Dental Care, Regularly: Yes Physical Activity Frequency: Does not Exercise Review of Systems Review of Systems: Constitutional: No fever, sweats, + chills, + lighthea dedness earlier today with getting out of bed Eyes: No diplopia, no worsening or blurred vision ENT: normal hearing, no trouble swallowing Respiratory: + Needed to wear O2 as per HPI, + cough, + sputum, no dyspnea at rest Cardiovascular: No chest pain, tightness or palpitations Abdomen: No pain, nausea, vomiting, diarrhea or constipation Musculoskeletal: No joint pain, calf pain, + chronic bilateral ankle swelling Neurologic: No weakness, numbness/tingling, or balance problems Psychiatric: No anxiety or depression Skin: No rash or itch Physical Exam Physical Exam: General: awake, alert, no apparent distress, + obese Head: Normocephalic, atraumatic ENT: PERRL, EOMI, no pharyngeal exudate, mucous membranes moist Chest: On 2L via NC, + diffuse wheezes and rales, diminished breath sounds at the left base, O2 sats =100% at bedside Cardiac: Regular rhythm, slightly bradycardic, HR = 47, no murmur, no JVD, normal peripheral pulses, good capillary refill Abdominal: NABS x 4 quadrants, soft, nontender to palpation, no rebound, guarding or tenderness Extremities: Normal inspection, 1+ peripheral edema bilateral lower extremities, no erythema, calfs nontender to palpation Psych: Normal mood and affect Neuro: AAO x 3, strength intact bilaterally and related 5/5, no motor deficits, speech is clear, no peripheral sensory deficits Skin: no rash or erythema Constitutional: WD/WN, vitals as above Eyes: normal visual james by confrontation and + anicteric sclerae Neck: normal visual inspection and trachea midline Respiratory: normal respiratory effort; no respiratory distress Auscultation: + wheezes; no crackles Cardiovascular: Rate/Rhythm: regular rate and regular rhythm Gastrointestinal (Abdomen): Inspection/Auscultation: abdomen not distended Percussion/Palpation: abdomen soft; abdomen nontender Musculoskeletal: Head/Neck/Chest: normocephalic and head atraumatic 1+ b/l LE edema, + pedal pulses Skin: no rashes, warm and dry Neurologic: awake; not confused Speech / Cognition: normal speech Psychiatric: A+Ox3, euthymic affect Lymphatic: Exam as done by Mirian Sterling DO Results & Data Results & Data ([facility]) Vital Signs (Past 12 Hours) Vital Signs Temp Pulse Resp BP Pulse Ox 11/02/19 14:30 47 L 19 193/102 H 100 11/02/19 14:00 51 L 20 201/95 H 100 11/02/19 13:31 70 18 188/90 H 100 11/02/19 13:28 65 16 236/95 H 97 11/02/19 13:26 53 L 22 217/105 H 94 11/02/19 13:15 100 11/02/19 13:13 87 L 11/02/19 13:01 50 L 14 206/85 H 100 11/02/19 12:02 36.9 C 63 26 H 201/82 H 93 Code Status & VTE Plan Code Status Full code-discussed with the patient at bedside Supervising Physician Co-Signing Physician Notes Pt seen and examined by me. Pt states she is feeling much improved in the ED. She has been tolerating PO without issue. Endorses no fevers. She states she has been in her trailer for the last 10days straight. She has only gone outside to take out her trash. She states that she has no sick contacts and there has been no alert that anyone else in [place] is sick or testing + for COVID. Agree with HPI/ROS as noted by PA See above for my exam in PE section Agree with plan as outlined above COPD exacerbation CXR neg for PNA Biofire neg Pt is feeling improved s/p nebs, steroids in the ED Elevated BP in the setting of respiratory distress. Monitor COVID-19 pending, however pt seems an unlikely candidate for this given no h/o fever, sick contacts, and had been self-isolating x10 days. Pt has hx of COPD and hx/exam c/w COPD exacerbation. I did leave a message with Rosita Guerin regarding ongoing need for infection precautions PG Care Time/CCT Total # of Minutes Spent Total Time Spent with Patient: Total time spent is greater than 50% in coordination of care (as documented) at patient's floor/unit and/or counseling patient: Coding Level of Care Code 12491 Initial Inpt Care Lvl 3 Diagnoses COPD (chronic obstructive pulmonary disease) J44.9 Acute and chronic respiratory failure with hypoxia J96.21 Hypertension I10 Hypercholesteremia E78.00 Osteoporosis M81.0 DVT prophylaxis Z29.9
[2019-11-02] MEDS ORDERED: ACETAMINOPHEN 325 MG TAB PO PRN (17:05)
[2019-11-02] MEDS ORDERED: methylPREDNISolone 125 MG/2 ML VIAL IV STA (17:05)
[2019-11-02] MEDS ORDERED: ONDANSETRON INJ 2 MG/ML 2 ML VIAL IV PRN (17:05)
[2019-11-02] MEDS ORDERED: methylPREDNISolone 60 MG in SYRINGE 0 ML IV STA (17:19)
[2019-11-02] MEDS: HydrALAZINE HCL 20 MG/ML VIAL IV PRN (17:33)
[2019-11-02] MEDS: ALBUTEROL HFA 8 GM INHALER INH SCH ×2 (19:15→20:14)
[2019-11-02] MEDS: guaiFENesin 600 MG TABCR PO SCH (20:15)
[2019-11-03] MEDS: methylPREDNISolone 40 MG in SYRINGE 0 ML IV SCH ×2 (06:15→17:21)
[2019-11-03] MEDS: guaiFENesin 600 MG TABCR PO SCH ×2 (07:50→20:01)
[2019-11-03] MEDS: ENOXAPARIN INJ 40 MG/0.4 ML SYR SQ SCH (07:50)
[2019-11-03] MEDS: ALBUTEROL HFA 8 GM INHALER INH SCH ×4 (07:52→20:02)
[2019-11-03] MEDS: HydrALAZINE HCL 20 MG/ML VIAL IV PRN (07:56)
[2019-11-03] MEDS ORDERED: FUROSEMIDE 20 MG in SYRINGE 0 ML IV ONE (08:00)
[2019-11-03] MEDS ORDERED: PHARMACIST DISCHARGE MED REC CONSULT PRN (08:57)
[2019-11-03] MEDS ORDERED: OPTIRAY 320 125ml IV PRN (09:02)
--- NOTE | 2019-11-03 09:19 | CT Scan Report ---
CT head/brain wo con CLINICAL HISTORY: Strokelike symptoms COMPARISON STUDY: No previous studies for comparison. TECHNIQUE: Axial CT of the brain is performed from the vertex to the skull base. IV contrast was not administered for this examination. A dose lowering technique was utilized adhering to the principles of ALARA. CT DOSE: 2043.68 mGy.cm FINDINGS: No intra or extra-axial mass lesions are visualized. There is no CT evidence of acute cortical infarc tion. There is no evidence of midline shift. There is no acute hemorrhage. No calvarial fractures ar e visualized. There are patchy white matter hypodensities likely on a small vessel basis. There is no evidence of pathologic ventricular dilatation. There is no evidence of acute sinusitis The study is motion degraded. IMPRESSION: 1. Motion degraded study. 2. No acute intracranial findings ACT 112: Negative or not required by law. Electronically signed by: Kamari Mckay M.D. 11/03/2019 9:18 AM
--- NOTE | 2019-11-03 09:19 | CT Scan Report ---
CT angio head w con CLINICAL HISTORY: Strokelike symptoms TECHNIQUE: CT angiography of the head was performed in a dynamic helical fashion during intravenous a dministration of 120 cc of Optiray 320. MIP imaging was performed. A dose lowering technique was util ized adhering to the principles of ALARA. CT DOSE: COMPARISON STUDY: No previous studies for comparison. FINDINGS: There are no lesion suspicious for aneurysm. There are no major intracranial branch occlusi ons. The dural venous sinuses appear patent. Atherosclerotic calcifications are present at the level of the cavernous carotids. There is mild nonhemodynamically significant narrowing of the left M2 segm ent. IMPRESSION: 1. Mild atherosclerotic changes 2. No evidence of major intracranial branch occlusion 3. No evidence of aneurysm ACT 112: Negative or not required by law. Electronically signed by: Kamari Mckay M.D. 11/03/2019 9:18 AM
--- NOTE | 2019-11-03 09:24 | CT Scan Report ---
CT angio neck with con CLINICAL HISTORY: 74 years-old Female with stroke like sx. Acute strokelike symptoms COMPARISON STUDY: CTA had and neck of same day TECHNIQUE: Following the IV administration of 120 of Optiray 320, CT angiogram of the neck was perfor med from the aortic arch to the skull base. Images are reviewed in the axial, sagittal, and coronal p lanes. 3-D MIPS images are created and assessed. IV contrast was administered without complication. A ll measurements were calculated based on NASCET criteria. A dose lowering technique was utilized adh ering to the principles of ALARA. FINDINGS: The imaged opacified pulmonary arterial tree is unremarkable. Moderate calcified plaque of the thorac ic aorta. Study is motion degraded. The imaged subclavian arteries appear patent. Mild mixed plaque o f the patent common carotid arteries. Mixed plaque of the carotid bulbs and proximal internal carotid arteries bilaterally result in less than 50% luminal narrowing. There is tortuosity involving the pr oximal cervical segments of the internal carotid arteries. The vertebral arteries are codominant. Rob cified plaque at the origin of the vertebral arteries, right greater than left is noted without high- grade stenosis. The V4 segment left vertebral artery is diminutive. Mild calcified plaque of the righ t V4 segment without high-grade stenosis. There is no aneurysm, dissection, high-grade stenosis or pr oximal branch occlusion identified. Moderate emphysema with bronchial wall thickening suggestive of bronchitis. Soft tissues are unremark able. The airway appears patent. Multilevel degenerative changes of the spine. No acute fracture. IMPRESSION: 1. Mildly motion degraded exam without aneurysm, dissection, high-grade stenosis or proximal branch o cclusion. 2. Moderate mixed plaque of the carotid bulbs results in less than 50% luminal narrowing bilaterally. 3. Moderate emphysema with suggestion of bronchitis. ACT 112: Negative or not required by law. The above report was generated using voice recognition software. It may contain grammatical, syntax o r spelling errors. Electronically signed by: Mikey Walton M.D. 11/03/2019 9:22 AM
[2019-11-03] MEDS ORDERED: ASPIRIN 81 MG CHEW PO STA (09:37)
--- NOTE | 2019-11-03 09:44 | Hospitalist Progress Note ---
Date of Service November 03, 2019 Assessment & Plan (1) Stroke-like symptoms: Sx have resolved quickly, likely TIA vs sx related to elevated BP CT head, CTA head/neck WNL. I spoke with Dr. Mcconnell with [facility] [place] telestroke. He feels this is likely a TIA. Recs for aspirin, statin, MRI, ECHO. Give aspirin 325 and home dose statin BS at time of event 202 A1c, lipids pending MRI pending Spoke with Dr. Duarte, he will see pt if MRI is +, otherwise does agree with above Planning aspirin 81mg on d/c unless further issues (2) Acute and chronic respiratory failure with hypoxia: Pt felt much improved in ED s/p nebs, steroids, O2 -Bio fire negative, covid pending -Initially had O2 sats in 80s on arrival to the ER, improved to 100% on 2 L via NC, patient does wear CPAP at bedtime -Continue supportive therapy -Probable COPD exacerbation currently, will order Solu-Medrol 60 mg IV now with continued wheezing throughout on exam, patient received Ventolin inhaler puffs in the ER, no nebs due to trying to reduce aerosolization if positive covid. Continue Solu-Medrol 40 mg every 12 thereafter -Sputum culture -Mucinex, O2, Tessalon Perles, Ventolin inhaler I did speak with Dr. Kingston earlier this AM, prior to onset of sx regarding isolation and COVID risk. He did agree that pt did not meet criteria for testing on admission and for isolation precautions to be discontinued No hx of fever or cough, pt self isolating x10 days in [facility] with no known sick contacts, no one [place] sick or + for COVID per her knowledge, rapid improvement of sx with COPD tx and hx of COPD Likely COPD exacerbation related to isolation in [facility] with mild CHF component (3) COPD (chronic obstructive pulmonary disease): (4) CHF (congestive heart failure): Not a known dx for pt, no current diuretic use Some mild CHF on CXR Lasix 20mg IV x1 ECHO pending Prior ECHO 10/2017 was WNL BNP pending (5) Hypertension: -193/102 -Continue metoprolol succinate 100 mg twice daily, will add on hydralazine prn with parameters for improvement of blood pressure, patient and patient's son report that she is an anxious person, likely being in the hospital exacerbates her hypertension, continue to monitor. Home meds did not transfer in system for some reason, will give home doses now (6) Hypercholesteremia: chronic, stable Repeat in AM (7) Osteoporosis: -Continue calcium and vitamin D supplementation (8) DVT prophylaxis: -Lovenox subcu CODE STATUS full code Time spent on pt today 90 minutes, including AM chart review, discussion with multiple providers, multiple bedside evals Admission and Anticipated Discharge Date Admission Date: November 02, 2019 Subjective Pt was a stroke alert at 8:40am. Nursing reports that pt had be at her usual prior to this. She ate breakfast without any issue and had been communicating effectively. She was a bit SOB with moving to the bathroom, but was comfortable otherwise. Pt's vitals were checked at 8:38 and were WNL other than an elevated BP in the 180s-200s this AM. Nursing went back into room for other care and pt was slumped over in bed and difficult to arouse. She could not really speak at all or follow commands. She was trying to answer questions, but was not able to articulate. A stroke alert was called. I arrived to pt bedside around 8:45 and pt was lying in bed comfortably with her eyes closed. She opened them to her name. She stated she could see me, but that her vision was double, which is no normal for her. She felt nauseated. No jonathan pain. No headache. Some SOB. Speech was not as clear as yesterday, but not garbled and pt was struggling to say more than 1-2 words at a time. Pt moved to radiology for stat imaging and ICU for possible telstroke eval. Upon arrival to ICU, pt was more interactive. Speech more clear. She stated that double vision was "coming and going" but when it was present, it seemed less. Nausea improved. On exam, pt is overall week, but 5/5 consular officer strength b/l, 5/5 strength against LE resistance to hip flexion, dorsi/plantar flexion. I spoke with Dr. Mcconnell with [facility] [place]roke. CT head, CTA head/neck WNL. He feels this is likely a TIA. Recs for aspirin, statin, MRI, ECHO. Pt denies fever, chest pain, abd pain, v/c/d, LE pain or swelling. Review of Systems Review of Systems: Pertinent positives and negatives reviewed in HPI--all others negative Physical Exam Constitutional: WD/WN, vitals as above Eyes: normal visual james by confrontation and + anicteric sclerae Neck: normal visual inspection and trachea midline Respiratory: normal respiratory effort; no respiratory distress Auscultation: + wheezes; no crackles Cardiovascular: Rate/Rhythm: regular rate and regular rhythm Gastrointestinal (Abdomen): Inspection/Auscultation: abdomen not distended Percussion/Palpation: abdomen soft; abdomen nontender Musculoskeletal: Head/Neck/Chest: normocephalic and head atraumatic Skin: no rashes, warm and dry Neurologic: awake; not confused Speech / Cognition: normal speech At one point, it was unclear if the L eye was unable to move laterally, however it seems pt was just fatiguing at that point in the exam and not following my finger due to eyes closing. Allowing her to close her eyes and repeating was WNL x2 Psychiatric: A+Ox3, euthymic affect Speech: normal rate/rhythm/volume of speech Results & Data Results & Data ([facility]) Vital Signs (Past 12 Hours) Vital Signs Temp Pulse Pulse Resp BP BP Pulse Ox 11/03/19 08:42 80 186/71 H 11/03/19 07:53 36.7 C 55 L 62 18 201/87 H 92 11/03/19 02:16 36.7 C 60 20 175/71 H 96 11/02/19 22:20 165/79 H 11/02/19 22:14 36.4 C L 63 22 182/[address] head: neg for acute CTA head/neck: no significant stenosis PG Care Time/CCT Total # of Minutes Spent Total Time Spent with Patient: Total time spent is greater than 50% in coordination of care (as documented) at patient's floor/unit and/or counseling patient: Coding Level of Care Code 49286 Subseq Hosp Care Lvl 3 Diagnoses Stroke-like symptoms R29.90 Acute and chronic respiratory failure with hypoxia J96.21 COPD (chronic obstructive pulmonary disease) J44.9 CHF (congestive heart failure) I50.9 Hypertension I10 Hypercholesteremia E78.00 Osteoporosis M81.0 DVT prophylaxis Z29.9
--- NOTE | 2019-11-03 09:59 | Billing Data ---
Date of Service November 03, 2019 Coding Level of Care Code 06586 Prolonged Care-adt'l 30m
[2019-11-03] MEDS ORDERED: LORazepam 0.5 MG TAB PO PRN (10:13)
[2019-11-03] MEDS ORDERED: FLUTICASONE/VILANTEROL 100/25MCG 14 PUFFS/INHALER INH SCH (11:00)
[2019-11-03 11:22] LABS: Estimated Average Glucose 134 mg/dl; Hemoglobin A1C 6.3 % (4.5-5.6)
--- NOTE | 2019-11-03 11:22 | XRay Report ---
XR chest 2V PA/lateral CLINICAL HISTORY: 74 years-old Female presenting with SOB. TECHNIQUE: PA and lateral views of the chest were obtained. COMPARISON: 11/02/2019. FINDINGS: Atherosclerosis of the aortic arch. Cardiac silhouette enlarged. Heterogeneity lung parenchyma. Lungs are mildly hyperinflated. Persistent small left pleural effusion. Minimal bibasilar linear opacities . Pleural thickening may be present at the right costophrenic angle. Degenerative changes of the thor acic spine. Osteopenia suspected. Upper abdomen normal. IMPRESSION: 1. Heterogeneous lung parenchyma and hyperinflation suggests underlying emphysema. 2. Minimal bibasilar opacities possibly atelectasis or related to known right middle lobe and lingul ar scarring. 3. Suspected small left pleural effusion. 4. Cardiomegaly. No advanced congestive change. ACT 112: Negative or not required by law. Electronically signed by: Anderson Godfrey M.D. 11/03/2019 11:20 AM
--- NOTE | 2019-11-03 11:26 | Magnetic Resonance Report ---
MRI OF THE BRAIN WITHOUT CONTRAST CLINICAL HISTORY: Strokelike symptoms COMPARISON STUDY: Noncontrast head CT dated 11/03/2019 FINDINGS: Sagittal T1, axial diffusion, proton density and T2 weighted axial, coronal FLAIR, and axial T1-weigh jeanna images were acquired. No intra or extra-axial mass lesions are visualized Axial diffusion-weighted images reveal no evidence of acute or subacute infarction. There is no evidence of ventricular dilatation. Proton density T2-weighted and FLAIR images reveal moderate foci of increased T2 signal within the wh ite matter, likely on a small vessel basis. There are no abnormal flow voids. IMPRESSION: 1. No acute intracranial findings 2. No evidence of acute or subacute infarction 3. No evidence of intracranial mass on this noncontrast study 4. Foci of increased T2 signal within the white matter, likely on a small vessel basis ACT 112: Negative or not required by law. Electronically signed by: Kamari Mckay M.D. 11/03/2019 11:24 AM
[2019-11-03] MEDS ORDERED: ASPIRIN CHEW 324 MG ONE (11:47)
[2019-11-03] MEDS: METOPROLOL SUCC 50MG EXT REL TAB PO SCH ×2 (11:50→20:01)
[2019-11-03] MEDS: ATORVASTATIN 20 MG TAB PO SCH (11:50)
[2019-11-03] MEDS: ALBUT/IPRATROP 3MG/0.5MG NEB 3 ML VIAL INH SCH ×3 (12:08→18:59)
[2019-11-03] MEDS: OXYBUTYNIN CHLORIDE 5 MG TAB PO SCH (20:01)
[2019-11-03] MEDS ORDERED: BUDESONIDE/FORMOTEROL FUMARATE 160/4.5 60 PUFFS/INHALER INH SCH (21:00)
[2019-11-04] MEDS: methylPREDNISolone 40 MG in SYRINGE 0 ML IV SCH ×2 (05:22→16:49)
[2019-11-04] MEDS: HydrALAZINE HCL 20 MG/ML VIAL IV PRN (05:22)
--- NOTE | 2019-11-04 06:31 | Communication Note ---
Date of Service: November 04, 2019 Notified that pt had runs of unsustained SVT overnight, with continued BP elevation, <200 systolic, <100 diastolic. Pt otherwise asymptomatic. No changes to hypertensive medications made.
[2019-11-04 06:32] LABS: Hematocrit (blood only) 38.2 % (37-47); Hemoglobin 12.5 g/dL (12.0-16.0); Immature Granulocytes # (auto) 0.03 K/uL (0.00-0.02); Immature Granulocytes % (auto) 0.2 %; Lymphocytes # (auto) 1.02 K/uL (1.2-3.4); Lymphocytes % (auto) 6.7 %; Mean Corpuscular Hemoglobin 28.9 pg (25-34); Mean Corpuscular Hgb Conc 32.7 g/dL (32-36); Mean Corpuscular Volume 88.4 fL (80-100); Mean Platelet Volume 10.5 fL (7.4-10.4); Monocytes # (auto) 0.91 K/uL (0.11-0.59); Neutrophils # (auto) 13.25 K/uL (1.4-6.5); Neutrophils % (auto) 87.1 %; Platelet Count 208 K/uL (130-400); RDW Coefficient of Variation 14.1 % (11.5-14.5); RDW Standard Deviation 46.1 fL (36.4-46.3); Red Blood Count 4.32 M/uL (4.2-5.4); White Blood Count 15.21 K/uL (4.8-10.8)
[2019-11-04] MEDS ORDERED: MoRPHine SULFATE 2 MG/ML CARP IV STA (06:46)
[2019-11-04] MEDS ORDERED: MoRPHine SULFATE 2 MG/ML CARP ONE (06:54)
[2019-11-04] MEDS: ALBUT/IPRATROP 3MG/0.5MG NEB 3 ML VIAL INH SCH ×4 (06:59→19:59)
[2019-11-04 07:13] LABS: Albumin Level 3.3 gm/dl (3.4-5.0); BUN Creatinine Ratio 26.9 (10-20); Calcium 9.3 mg/dl (8.5-10.1); Creatinine Clr Calc Pharmacy 52.1 ml/min; Potassium 4.4 mmol/L (3.5-5.1)
[2019-11-04 07:16] LABS: Bilirubin,Total 0.4 mg/dl (0.2-1); Globulin 3.2 gm/dl (2.5-4.0); Total Protein 6.5 gm/dl (6.4-8.2)
[2019-11-04] MEDS: OXYBUTYNIN CHLORIDE 5 MG TAB PO SCH ×2 (07:34→20:17)
[2019-11-04] MEDS: ENOXAPARIN INJ 40 MG/0.4 ML SYR SQ SCH (07:34)
[2019-11-04] MEDS: ATORVASTATIN 20 MG TAB PO SCH (07:34)
[2019-11-04] MEDS: guaiFENesin 600 MG TABCR PO SCH ×2 (07:34→20:16)
[2019-11-04] MEDS: ASPIRIN 81 MG ECTAB PO SCH (07:34)
[2019-11-04] MEDS: PANTOprazole 40 MG TAB PO SCH (07:34)
[2019-11-04] MEDS: METOPROLOL SUCC 50MG EXT REL TAB PO SCH ×2 (07:34→20:16)
[2019-11-04] MEDS: FLUTICASONE/VILANTEROL 100/25MCG 14 PUFFS/INHALER INH SCH (07:35)
[2019-11-04] MEDS: ALBUTEROL HFA 8 GM INHALER INH SCH ×4 (07:35→20:17)
--- NOTE | 2019-11-04 10:23 | XCELERA ---
[id number] \\[email or web address]\[id number]
[2019-11-04] MEDS ORDERED: hydroCHLOROthiazide 25 MG TAB PO STA (15:49)
--- NOTE | 2019-11-04 15:56 | Hospitalist Progress Note ---
Date of Service November 04, 2019 Assessment & Plan (1) Stroke-like symptoms: Sx have resolved quickly, likely TIA vs sx related to elevated BP CT head, CTA head/neck WNL. I spoke with Dr. Mcconnell with [facility] [place], no tpa given as sx were improving by time of c/s Gave aspirin 325 and home dose statin BS at time of event 202 A1c 6.3, lipids with LDL 62 and HDL 69 MRI neg ECHO neg with EF 65-70% Spoke with Dr. Duarte, he will see pt if MRI is +, otherwise does agree with above Planning aspirin 81mg on d/c unless further issues (2) Acute and chronic respiratory failure with hypoxia: Pt felt much improved in ED s/p nebs, steroids, O2 -Bio fire negative, covid pending -Initially had O2 sats in 80s on arrival to the ER, improved to 100% on 2 L via NC, patient does wear CPAP at bedtime -Continue supportive therapy -Probable COPD exacerbation currently, will order Solu-Medrol 60 mg IV now with continued wheezing throughout on exam, patient received Ventolin inhaler puffs in the ER, no nebs due to trying to reduce aerosolization if positive covid. Continue Solu-Medrol 40 mg every 12 thereafter -Sputum culture -Mucinex, O2, Tessalon Perles, Ventolin inhaler I did speak with Dr. Kingston on 11/02 AM regarding isolation and COVID risk. He did agree that pt did not meet criteria for testing on admission and for isolation precautions to be discontinued No hx of fever or cough, pt self isolating x10 days in [facility] with no known sick contacts, no one in [place] is sick or + for COVID per her knowledge, rapid improvement of sx with COPD tx and hx of COPD Likely COPD exacerbation related to isolation in [facility] with mild CHF component (3) COPD (chronic obstructive pulmonary disease): (4) CHF (congestive heart failure): Not a known dx for pt, no current diuretic use Some mild CHF on CXR Lasix 20mg IV x1 on 11/02 ECHO with EF 65-70% and mild Prior ECHO 10/2017 was WNL BNP 1347 (5) Hypertension: Ongoing elevated BP, frequently greater than 180 even on home medicines and need for PRN hydralazine at least once a day -Continue metoprolol succinate 100 mg twice daily HR is in 70s, so likely achieving adequate beta blockade, will not increase metoprolol dosing Will add HCTZ QD given mild CHF on admission and mild on ECHO despite preserved EF If not improved, would consider lisinopril to replace HCTZ given mildly elevated A1c Will need rx for home BP cuff on d/c as pt does not have one at home (6) Hypercholesteremia: chronic, stable WNL (7) Osteoporosis: -Continue calcium and vitamin D supplementation (8) DVT prophylaxis: -Lovenox subcu CODE STATUS full code Monitor BP given likely cause of stroke like sx on 11/02 and if improved, possible d/c tomorrow Admission and Anticipated Discharge Date Admission Date: November 02, 2019 Subjective Pt has had no further stroke like sx. She did have a headache yesterday with elevated BP. No further double vision. She was OOB to the bathroom and is still with some SOB, more than [employer], but better. Tolerating PO without issue. Pt denies fever, chest pain, abd pain, n/v/c/d, LE pain or swelling. She has some pain lateral to her L breast this AM. It is not bothersome to her. She does not have a BP cuff at home, so she does not have a "baseline" BP number to give me. Per nursing, pt's BP has been high again today and it was high a gain overnight. Review of Systems Review of Systems: Pertinent positives and negatives reviewed in HPI--all others negative Physical Exam Constitutional: WD/WN, vitals as above Eyes: normal visual james by confrontation and + anicteric sclerae Neck: normal visual inspection and trachea midline Respiratory: normal respiratory effort; no respiratory distress Auscultation: no crackles and no wheezes Cardiovascular: Rate/Rhythm: regular rate and regular rhythm Gastrointestinal (Abdomen): Inspection/Auscultation: abdomen not distended Percussion/Palpation: abdomen soft; abdomen nontender Musculoskeletal: Head/Neck/Chest: normocephalic and head atraumatic Skin: no rashes, warm and dry Neurologic: awake; not confused Speech / Cognition: normal speech Psychiatric: A+Ox3, euthymic affect Speech: normal rate/rhythm/volume of speech Results & Data Results & Data ([facility]) Vital Signs (Past 12 Hours) Vital Signs Temp Pulse Resp BP BP Pulse Ox 11/04/19 15:31 62 18 96 11/04/19 15:28 36.6 C 64 18 184/79 H 93 11/04/19 11:16 36.0 C L 71 18 138/76 96 11/04/19 11:04 66 16 96 11/04/19 07:40 71 24 161/77 H 11/04/19 07:18 36.8 C 61 19 179/80 H 158/71 H 93 11/04/19 07:00 68 20 93 11/04/19 06:20 70 180/78 H PG Care Time/CCT Total # of Minutes Spent Total Time Spent with Patient: Total time spent is greater than 50% in coordination of care (as documented) at patient's floor/unit and/or counseling patient: Coding Level of Care Code 90489 Subseq Hosp Care Lvl 3 Diagnoses Stroke-like symptoms R29.90 Acute and chronic respiratory failure with hypoxia J96.21 COPD (chronic obstructive pulmonary disease) J44.9 CHF (congestive heart failure) I50.9 Hypertension I10 Hypercholesteremia E78.00 Osteoporosis M81.0 DVT prophylaxis Z29.9
[2019-11-04 22:35] LABS: COVID-19 Patient Symptomatic? Yes; PAN-SARS Coronavirus RNA Negative (Negative); SARS CoV2 RNA (COVID-19) Negative (Negative); SARS Coronavirus RNA Source Nasopharyngeal
[2019-11-05] MEDS: methylPREDNISolone 40 MG in SYRINGE 0 ML IV SCH (05:09)
[2019-11-05] MEDS: HydrALAZINE HCL 20 MG/ML VIAL IV PRN ×2 (05:09→15:15)
[2019-11-05 05:54] LABS: Hemoglobin 12.2 g/dL (12.0-16.0); Immature Granulocytes # (auto) 0.03 K/uL (0.00-0.02); Immature Granulocytes % (auto) 0.2 %; Lymphocytes # (auto) 0.91 K/uL (1.2-3.4); Mean Corpuscular Hemoglobin 28.8 pg (25-34); Mean Corpuscular Hgb Conc 32.1 g/dL (32-36); Mean Corpuscular Volume 89.6 fL (80-100); Mean Platelet Volume 11.1 fL (7.4-10.4); Monocytes % (auto) 6.2 %; Neutrophils # (auto) 11.22 K/uL (1.4-6.5); Neutrophils % (auto) 86.6 %; Platelet Count 209 K/uL (130-400); RDW Coefficient of Variation 14.2 % (11.5-14.5); RDW Standard Deviation 46.5 fL (36.4-46.3); Red Blood Count 4.24 M/uL (4.2-5.4); White Blood Count 12.96 K/uL (4.8-10.8)
[2019-11-05 06:18] LABS: BUN Creatinine Ratio 29.9 (10-20); Calcium 9.1 mg/dl (8.5-10.1); Creatinine Clr Calc Pharmacy 52.2 ml/min; Potassium 4.2 mmol/L (3.5-5.1)
[2019-11-05] MEDS: ALBUT/IPRATROP 3MG/0.5MG NEB 3 ML VIAL INH SCH ×4 (06:58→19:08)
[2019-11-05] MEDS: ENOXAPARIN INJ 40 MG/0.4 ML SYR SQ SCH (07:32)
[2019-11-05] MEDS: guaiFENesin 600 MG TABCR PO SCH ×2 (07:33→20:14)
[2019-11-05] MEDS: ATORVASTATIN 20 MG TAB PO SCH (07:33)
[2019-11-05] MEDS: METOPROLOL SUCC 50MG EXT REL TAB PO SCH ×2 (07:34→20:15)
[2019-11-05] MEDS: ASPIRIN 81 MG ECTAB PO SCH (07:34)
[2019-11-05] MEDS: hydroCHLOROthiazide 25 MG TAB PO SCH (07:35)
[2019-11-05] MEDS: OXYBUTYNIN CHLORIDE 5 MG TAB PO SCH ×2 (07:35→20:14)
[2019-11-05] MEDS: PANTOprazole 40 MG TAB PO SCH (07:35)
[2019-11-05] MEDS: FLUTICASONE/VILANTEROL 100/25MCG 14 PUFFS/INHALER INH SCH (07:36)
[2019-11-05] MEDS: ALBUTEROL HFA 8 GM INHALER INH SCH ×4 (07:36→20:16)
--- NOTE | 2019-11-05 10:26 | Electrocardiogram Report ---
Test Reason : Blood Pressure : / mmHG Vent. Rate : 068 BPM Atrial Rate : 068 BPM P-R Int : 148 ms QRS Dur : 080 ms QT Int : 408 ms P-R-T Axes : 072 -38 042 degrees QTc Int : 433 ms Poor data quality, interpretation may be adversely affected Normal sinus rhythm Suspect L arm L leg lead reversal Left axis deviation Abnormal ECG When compared with ECG of 02-NOV-2019 13:10, No significant change assuming lead reversal Confirmed by Sukh Jacobs ([id number]) on 11/05/2019 10:26:18 AM Referred By: REFERRED SELF Confirmed By:Sukh Jacobs
--- NOTE | 2019-11-05 10:29 | Hospitalist Progress Note ---
Date of Service November 05, 2019 Assessment & Plan (1) Stroke-like symptoms: Patient was having strokelike symptoms early in her admission, these seem to have resolved. MRI is negative as noted above. From documentation, appears neurology is in agreement that this is likely hypertensive encephalopathy has since resolved. Patient remains hypertensive, will add amlodipine 5 mg daily to her previous regimen of Toprol and hydrochlorothiazide. Would not increase Toprol secondary to her bradycardia. (2) Acute and chronic respiratory failure with hypoxia: Patient seems to be improving from this perspective, will decrease Solu- Medrol to 20 mg every 12, if she does well consider transition over to oral prednisone. Testing for infection so far has been negative with negative bio fire along with negative COVID-19. Seems to be responding well to routine COPD treatment. Will need a home O2 evaluation for possible consideration to increase her baseline home oxygen to 3 L. (3) COPD (chronic obstructive pulmonary disease): (4) CHF (congestive heart failure): Does not appear to be significantly fluid overloaded at this time, will continue to monitor on HCTZ as noted. (5) Hypertension: Ongoing hypertension, and add amlodipine 5 mg as noted above. Continue Toprol and hydrochlorothiazide. Will need rx for home BP cuff on d/c as pt does not have one at home (6) Hypercholesteremia: chronic, stable WNL (7) Osteoporosis: -Continue calcium and vitamin D supplementation (8) DVT prophylaxis: -Lovenox subcu CODE STATUS full code If blood pressure is improved and patient continues to have no neurological signs, could conceivably be discharged in the morning. I did see PT note that they feel that she is close to her baseline. Patient lives alone but has good family support, has rolling walker at home. Admission and Anticipated Discharge Date Admission Date: November 02, 2019 Subjective Patient seen and examined. She is enthusiastic at the thought of being discharged tomorrow. She has no new complaints and feel that she is improving. She is typically on 2 L nasal cannula at home but is on 3 L here, which she feels is actually better. She has had no further focal neurological issues. Blood pressure remains elevated at 178/95. Pulse is 88 although it is been low as 54 earlier today. Patient does have a loose sounding cough during the evaluation. Physical Exam Constitutional: cooperative; no acute distress Neck: trachea midline, no thyromegaly Respiratory: normal respiratory effort Auscultation: + diminished lung sounds and + crackles; no rales, no rhonchi and no wheezes Cardiovascular: Rate/Rhythm: regular rate and regular rhythm Heart Sounds: normal S1 and normal S2 Vessels: no JVD Gastrointestinal (Abdomen): Inspection/Auscultation: abdomen normal to inspection Percussion/Palpation: abdomen soft; abdomen nontender, no guarding, abdomen not rigid and no hepatosplenomegaly Skin: no rashes, warm and dry Results & Data Results & Data ([facility]) Vital Signs (Past 12 Hours) Vital Signs Temp Pulse Resp BP BP Pulse Ox 11/05/19 08:05 37.0 C 88 18 178/95 H 98 11/05/19 06:58 54 L 18 98 11/05/19 04:48 36.6 C 54 L 20 196/79 H 96 11/04/19 23:33 36.7 C 63 18 169/82 H 95 Diagnostic Findings MRI OF THE BRAIN WITHOUT CONTRAST CLINICAL HISTORY: Strokelike symptoms COMPARISON STUDY: Noncontrast head CT dated 11/03/2019 FINDINGS: Sagittal T1, axial diffusion, proton density and T2 weighted axial, coronal FLAIR, and axial T1-weighted images were acquired. No intra or extra-axial mass lesions are visualized Axial diffusion-weighted images reveal no evidence of acute or subacute infarction. There is no evidence of ventricular dilatation. Proton density T2-weighted and FLAIR images reveal moderate foci of increased T2 signal within the white matter, likely on a small vessel basis. There are no abnormal flow voids. IMPRESSION: 1. No acute intracranial findings 2. No evidence of acute or subacute infarction 3. No evidence of intracranial mass on this noncontrast study 4. Foci of increased T2 signal within the white matter, likely on a small vessel basis PG Care Time/CCT Total # of Minutes Spent Total Time Spent with Patient: Total time spent is greater than 50% in coordination of care (as documented) at patient's floor/unit and/or counseling patient: Coding Level of Care Code 21699 Subseq Hosp Care Lvl 2 Diagnoses Stroke-like symptoms R29.90 Acute and chronic respiratory failure with hypoxia J96.21 COPD (chronic obstructive pulmonary disease) J44.9 CHF (congestive heart failure) I50.9 Hypertension I10 Hypercholesteremia E78.00 Osteoporosis M81.0 DVT prophylaxis Z29.9
[2019-11-05] MEDS: AMLODIPINE BESYLATE 5 MG TAB PO SCH (11:06)
[2019-11-05] MEDS: methylPREDNISolone 20 MG in SYRINGE 0 ML IV SCH (16:44)
[2019-11-05] MEDS ORDERED: methylPREDNISolone 20 MG in SYRINGE 0 ML IV SCH (21:00)
[2019-11-06] MEDS: methylPREDNISolone 20 MG in SYRINGE 0 ML IV SCH ×2 (05:32→18:42)
[2019-11-06 05:34] LABS: Basophils # (auto) 0.01 K/uL (0-0.2); Basophils % (auto) 0.1 %; Eosinophils # (auto) 0.01 K/uL (0-0.5); Eosinophils % (auto) 0.1 %; Hematocrit (blood only) 38.4 % (37-47); Hemoglobin 12.4 g/dL (12.0-16.0); Immature Granulocytes # (auto) 0.03 K/uL (0.00-0.02); Immature Granulocytes % (auto) 0.3 %; Lymphocytes # (auto) 1.04 K/uL (1.2-3.4); Lymphocytes % (auto) 8.9 %; Mean Corpuscular Hgb Conc 32.3 g/dL (32-36); Mean Corpuscular Volume 89.7 fL (80-100); Mean Platelet Volume 10.7 fL (7.4-10.4); Monocytes # (auto) 1.07 K/uL (0.11-0.59); Monocytes % (auto) 9.1 %; Neutrophils # (auto) 9.55 K/uL (1.4-6.5); Neutrophils % (auto) 81.5 %; Platelet Count 199 K/uL (130-400); RDW Coefficient of Variation 14.4 % (11.5-14.5); RDW Standard Deviation 46.7 fL (36.4-46.3); Red Blood Count 4.28 M/uL (4.2-5.4); White Blood Count 11.71 K/uL (4.8-10.8)
[2019-11-06 06:08] LABS: Calcium 9.1 mg/dl (8.5-10.1); Creatinine Clr Calc Pharmacy 50.6 ml/min; Est GFR (Non-African American) 61.3; Potassium 4.2 mmol/L (3.5-5.1)
[2019-11-06] MEDS: ALBUT/IPRATROP 3MG/0.5MG NEB 3 ML VIAL INH SCH ×4 (06:47→19:23)
[2019-11-06] MEDS: guaiFENesin 600 MG TABCR PO SCH ×2 (09:18→20:19)
[2019-11-06] MEDS: AMLODIPINE BESYLATE 5 MG TAB PO SCH (09:18)
[2019-11-06] MEDS: ATORVASTATIN 20 MG TAB PO SCH (09:19)
[2019-11-06] MEDS: PANTOprazole 40 MG TAB PO SCH (09:19)
[2019-11-06] MEDS: METOPROLOL SUCC 50MG EXT REL TAB PO SCH ×2 (09:19→20:20)
[2019-11-06] MEDS: FLUTICASONE/VILANTEROL 100/25MCG 14 PUFFS/INHALER INH SCH (09:19)
[2019-11-06] MEDS: OXYBUTYNIN CHLORIDE 5 MG TAB PO SCH ×2 (09:19→20:19)
[2019-11-06] MEDS: ENOXAPARIN INJ 40 MG/0.4 ML SYR SQ SCH (09:19)
[2019-11-06] MEDS: ALBUTEROL HFA 8 GM INHALER INH SCH ×4 (09:20→20:20)
[2019-11-06] MEDS: hydroCHLOROthiazide 25 MG TAB PO SCH (09:20)
[2019-11-06] MEDS: ASPIRIN 81 MG ECTAB PO SCH (09:20)
--- NOTE | 2019-11-06 11:27 | Hospitalist Progress Note ---
Date of Service November 06, 2019 Assessment & Plan (1) Stroke-like symptoms: Patient was having strokelike symptoms early in her admission, these seem to have resolved. MRI is negative as noted above. From documentation, appears neurology is in agreement that this is likely hypertensive encephalopathy has since resolved. Patient remains hypertensive, added amlodipine 5 mg yesterday to her regimen. Blood pressure improved into the 160s, will monitor another 24 hours. (2) Acute and chronic respiratory failure with hypoxia: Patient seems to be improving from this perspective, will decrease Solu- Medrol to 20 mg every 12, if she does well consider transition over to oral prednisone. Testing for infection so far has been negative with negative biofire along with negative COVID-19. Seems to be responding well to routine COPD treatment. Will need a home O2 evaluation for possible consideration to increase her baseline home oxygen to 3 L. (3) COPD (chronic obstructive pulmonary disease): (4) CHF (congestive heart failure): Does not appear to be significantly fluid overloaded at this time, will continue to monitor on HCTZ as noted. (5) Hypertension: Ongoing hypertension, and add amlodipine 5 mg as noted above. Continue Toprol and hydrochlorothiazide. Will need rx for home BP cuff on d/c as pt does not have one at home (6) Hypercholesteremia: chronic, stable WNL (7) Osteoporosis: -Continue calcium and vitamin D supplementation (8) DVT prophylaxis: -Lovenox subcu CODE STATUS full code Plan to keep patient another day, working with PT/OT. If no further concerns, will consider discharging patient in the morning. Admission and Anticipated Discharge Date Admission Date: November 02, 2019 Subjective Patient seen and examined. She is asleep but easily arousable. She continues to have a weak cough and does complain of shortness of breath. She is on 2 L nasal cannula but satting well. She has been afebrile overnight. Her blood pressure remains elevated though slightly improved after the addition of amlodipine to her regimen. Physical Exam Constitutional: cooperative; no acute distress Neck: trachea midline, no thyromegaly Respiratory: normal respiratory effort Auscultation: + diminished lung sounds and + wheezes (Faint scattered wheeze); no crackles, no rales and no rhonchi Cardiovascular: Rate/Rhythm: regular rate and regular rhythm Heart Sounds: normal S1, normal S2 and + murmur Gastrointestinal (Abdomen): Inspection/Auscultation: abdomen normal to inspection Percussion/Palpation: abdomen soft; abdomen nontender, no guarding, abdomen not rigid and no hepatosplenomegaly Skin: no rashes, warm and dry Results & Data Results & Data ([facility]) Vital Signs (Past 12 Hours) Vital Signs Temp Pulse Pulse Resp BP BP Pulse Ox 11/06/19 10:41 64 18 96 11/06/19 08:25 36.8 C 69 18 162/66 H 89 L 11/06/19 08:00 50 L 11/06/19 06:48 50 L 18 98 11/06/19 05:34 160/78 H 11/06/19 03:48 177/91 H 11/06/19 03:34 36.6 C 92 H 18 95 PG Care Time/CCT Total # of Minutes Spent Total Time Spent with Patient: Total time spent is greater than 50% in coordination of care (as documented) at patient's floor/unit and/or counseling patient: Coding Level of Care Code 63067 Subseq Hosp Care Lvl 2 Diagnoses Stroke-like symptoms R29.90 Acute and chronic respiratory failure with hypoxia J96.21 COPD (chronic obstructive pulmonary disease) J44.9 CHF (congestive heart failure) I50.9 Hypertension I10 Hypercholesteremia E78.00 Osteoporosis M81.0 DVT prophylaxis Z29.9
[2019-11-07] MEDS: methylPREDNISolone 20 MG in SYRINGE 0 ML IV SCH (04:30)
[2019-11-07] MEDS: HydrALAZINE HCL 20 MG/ML VIAL IV PRN (04:30)
[2019-11-07] MEDS: ALBUT/IPRATROP 3MG/0.5MG NEB 3 ML VIAL INH SCH ×2 (07:23→11:02)
[2019-11-07] MEDS: ALBUTEROL HFA 8 GM INHALER INH SCH (08:08)
[2019-11-07] MEDS: ASPIRIN 81 MG ECTAB PO SCH (08:09)
[2019-11-07] MEDS: ATORVASTATIN 20 MG TAB PO SCH (08:09)
[2019-11-07] MEDS: OXYBUTYNIN CHLORIDE 5 MG TAB PO SCH (08:09)
[2019-11-07] MEDS: guaiFENesin 600 MG TABCR PO SCH (08:09)
[2019-11-07] MEDS: PANTOprazole 40 MG TAB PO SCH (08:09)
[2019-11-07] MEDS: METOPROLOL SUCC 50MG EXT REL TAB PO SCH (08:09)
[2019-11-07] MEDS: AMLODIPINE BESYLATE 5 MG TAB PO SCH (08:09)
[2019-11-07] MEDS: ENOXAPARIN INJ 40 MG/0.4 ML SYR SQ SCH (08:10)
[2019-11-07] MEDS: hydroCHLOROthiazide 25 MG TAB PO SCH (08:12)
[2019-11-07] MEDS: FLUTICASONE/VILANTEROL 100/25MCG 14 PUFFS/INHALER INH SCH (08:13)
--- NOTE | 2019-11-07 10:37 | Discharge Summary ---
Date of Service November 07, 2019 Admission HPI Per Admitting Provider This is a 74 yo F with PMHx of acute on chronic respiratory failure with hypoxia in the setting of COPD, HTN, HLD, history of tobacco use x50 years, quit 7 years ago, impaired fasting glucose who presents with acute worsening of cough and shortness of breath. Patient notes that she wore her typical CPAP machine overnight, and when she awoke this morning she felt lightheaded when she was attempting to get out of bed and catch her breath, she noticed worsening cough as well as yellow sputum production. She typically does not need to wear oxygen, however put herself on 2 L via NC at home due to work of breathing. Upon presentation here in ER she was found to have sats in the low 80s, and was placed on O2 continuous and has improved with O2 sats into the high 90s at bedside. Her blood pressure was initially elevated greater than 200/110, but has not significantly improved. She did take all her morning medications including metoprolol succinate 100 mg BID today. She denies any fevers, reports chills. She denies any contacts with COVID-19 positive people, recent travel, loss of taste or smell. She was in contact with her son who brought her to the ER this morning. I spoke with her son on the phone at bedside during my visit, and updated him on all care and answered his questions and concerns. Admission Exam Per Admitting Provider General: awake, alert, no apparent distress, + obese Head: Normocephalic, atraumatic ENT: PERRL, EOMI, no pharyngeal exudate, mucous membranes moist Chest: On 2L via NC, + diffuse wheezes and rales, diminished breath sounds at the left base, O2 sats =100% at bedside Cardiac: Regular rhythm, slightly bradycardic, HR = 47, no murmur, no JVD, normal peripheral pulses, good capillary refill Abdominal: NABS x 4 quadrants, soft, nontender to palpation, no rebound, guarding or tenderness Extremities: Normal inspection, 1+ peripheral edema bilateral lower extremities, no erythema, calfs nontender to palpation Psych: Normal mood and affect Neuro: AAO x 3, strength intact bilaterally and related 5/5, no motor deficits, speech is clear, no peripheral sensory deficits Skin: no rash or erythema Principal Diagnosis 1. Acute on chronic respiratory failure with hypoxia, on 2-3 L chronically 2. COPD exacerbation 3. Chronic diastolic CHF 4. Hypertensive encephalopathy, since resolved Discharge Exam Constitutional cooperative; no acute distress Neck trachea midline, no thyromegaly Respiratory normal respiratory effort Auscultation: lungs clear to auscultation bilaterally and + rhonchi (Very faint with good airflow); no crackles, no rales and no wheezes Cardiovascular Rate/Rhythm: regular rate and regular rhythm Heart Sounds: normal S1 and normal S2 Gastrointestinal (Abdomen) Inspection/Auscultation: abdomen normal to inspection Percussion/Palpation: abdomen soft; abdomen nontender, no guarding, abdomen not rigid and no hepatosplenomegaly Skin no rashes, warm and dry Discharge Data Allergies Allergy/AdvReac Type Severity Reaction Status Date / Time tramadol Allergy Intermediate Rash Verified 10/20/19 14:11 Consultations 11/02/19 13:23 ED Decision to Admit Stat 11/02/19 17:05 Consult Case Management - Discharge Planning Routine 11/03/19 08:57 Consult Case Management - Discharge Planning Routine Ordered Studies 11/03/19 08:57 CT head/brain wo con Routine 11/03/19 08:58 CT angio head w con Routine CT angio neck with con Routine 11/03/19 09:37 MR brain wo con Routine [facility], [place] [phone] XRay Report Patient: DEVEN DE LOS SANTOS Date: 11/02/19 MR#: [id number]: [id number] Acct ID:[id number]: [address] Date: 1945[facility] Zip: [id number] Age: 74Location: ED Sex: F Room/Bed: Att Phy:Diagnosis: COUGH, SOB Juliana Phy: Stevenson Zendejas, III, MDService Date: 11/02/19 Fam Phy:Interpreting Phy: Anderson Godfrey MD Admit Phy: Ordering Phy: Bonifacio Bowman MD cc: ~ XR chest 1V portable CLINICAL HISTORY: 74 years-old Female presenting with SEPSIS. TECHNIQUE: Portable upright AP view of the chest was obtained. COMPARISON: 05/14/2019. FINDINGS: Atherosclerosis of the aortic arch. Cardiac silhouette enlarged. Mild pulmonary vascular prominence. Mild interstitial prominence. Mildly elevated lung volumes as on prior exam. Minimal bandlike opacities at the right lung base. A small left pleural effusion may be present. No pneumothorax. Degenerative changes of the thoracic spine. IMPRESSION: 1. Minimal right asymmetric or atelectasis suspected. 2. Small left pleural effusion new from prior. 3. Cardiomegaly with mild volume overload and potentially mild congestive change. No jonathan pulmonary edema. --- MRI OF THE BRAIN WITHOUT CONTRAST CLINICAL HISTORY: Strokelike symptoms COMPARISON STUDY: Noncontrast head CT dated 11/03/2019 FINDINGS: Sagittal T1, axial diffusion, proton density and T2 weighted axial, coronal FLAIR, and axial T1-weighted images were acquired. No intra or extra-axial mass lesions are visualized Axial diffusion-weighted images reveal no evidence of acute or subacute infarction. There is no evidence of ventricular dilatation. Proton density T2-weighted and FLAIR images reveal moderate foci of increased T2 signal within the white matter, likely on a small vessel basis. There are no abnormal flow voids. IMPRESSION: 1. No acute intracranial findings 2. No evidence of acute or subacute infarction 3. No evidence of intracranial mass on this noncontrast study 4. Foci of increased T2 signal within the white matter, likely on a small vessel basis Hospital Course (1) Stroke-like symptoms: Patient had some strokelike symptoms early in her admission. This was associated with very elevated blood pressure. This included double vision along with a headache. The case was discussed with telemedicine neurologist. MRI was ordered, results noted above but essentially negative for new stroke. Blood pressure was controlled and patient did not have recurrence of symptoms. Hydrochlorothiazide 25 mg a day to her regimen. Amlodipine 5 mg was also added, this will be increased to 10 mg on discharge as noted below. (2) Acute and chronic respiratory failure with hypoxia: Patient initially admitted with shortness of breath. There was concern for COVID-19, patient was ultimately not tested as she had no history of travel or sick contacts with similar symptoms. She responded very quickly to IV steroids which were titrated rapidly. I did decrease this over the course for admission to 20 mg of Solu-Medrol every 12 hours. I discharge this will be changed over to prednisone for a rapid taper. Patient should continue her nasal cannula 2 L as before. She will need to follow-up with her primary care physician within 1 week. (3) COPD (chronic obstructive pulmonary disease): (4) CHF (congestive heart failure): Does not appear to be significantly fluid overloaded at this time, will continue to monitor on HCTZ as noted. (5) Hypertension: Patient was hypertensive dementia remission. On discharge she was 176/80 although she had no symptoms. Blood pressure medication changes noted above. She will need to follow-up with her primary care provider to have this rechecked within 1 week. (6) Hypercholesteremia: chronic, stable WNL (7) Osteoporosis: -Continue calcium and vitamin D supplementation (8) DVT prophylaxis: -Lovenox subcu CODE STATUS full code Patient was working with PT/OT, cleared for home with further home services as before. Total Time Total Time Spent Total Time Spent (In Minutes): Preparation of discharge in excess of 30 minutes Discharge Plan Discharge Items Patient Disposition: Home - Home Health Services Reason For Visit: JOSE MIGUEL,HYPOXIA,HYPERTENSIVE URGENCY Discharge Diagnosis: 1. Acute on chronic respiratory failure with hypoxia, on 2-3 L chronically 2. COPD exacerbation 3. Chronic diastolic CHF 4. Hypertensive encephalopathy, since resolved Activity: Resume your previous activity Lifting: Gradually increase as tolerated Bathing: No limitations Sexual Activity: When tolerated Exercise/Sports: Gradually increase as tolerated Driving/Machine Use: No limitations Non-emergency contact: Primary Care Provider Call non-emergency contact if: your symptoms worsen and your temperature is abo ve 101 Follow-up/Referrals: Stevenson Zendejas III, MD [Primary Care Provider] - (follow within 1 week to have blood pressure checked) Diet: Heart Healthy Addtl Attending Provider Instructions: Presents the emergency room if symptoms worsen or new symptoms develop Pending Studies at Discharge: No Stand-Alone Forms: My [facility] [employer], Smoking Cessation Medications and DC Order Prescriptions: New hydrochlorothiazide 25 mg Tablet 25 mg PO QAM Qty: 30 RF: 0 prednisone 10 mg tablet 10 mg PO DIRECTED Qty: 21 RF: 0 amlodipine 10 mg tablet 10 mg PO DAILY Qty: 30 RF: 0 Continued (DME) Oxygen Home Liters Per Minute See Dose Instructions .ROUTE .MEDSUPPLY Qty: 1 RF: 0 oxybutynin chloride 5 mg tablet 5 mg PO BID Qty: 180 RF: 1 metoprolol succinate 100 mg tablet extended release 24 hr 100 mg PO BID Qty: 180 RF: 3 ipratropium-albuterol 0.5 mg-3 mg(2.5 mg base)/3 mL solution for nebulization 3 ml inhalation QID Qty: 360 RF: 3 Caltrate 600-D Plus Minerals 600 mg calcium- 800 unit-50 mg tablet 1 tab PO QAM RF: 0 Centrum Complete 18-400 mg-mcg tablet 1 tab PO QAM RF: 0 lorazepam [Ativan] 0.5 mg tablet 0.5 mg PO DAILY PRN (Reason: anxiety) Qty: 3 RF: 0 omeprazole 20 mg capsule,delayed release(DR/EC) 20 mg PO QAM Qty: 90 RF: 0 Symbicort 160-4.5 mcg/actuation HFA aerosol inhaler 2 puffs inhalation BID Qty: 1 RF: 0 atorvastatin 20 mg tablet 20 mg PO QAM RF: 0 alendronate [Fosamax] 70 mg tablet 70 mg PO GUZMAN RF: 0 aspirin [Aspir-81] 81 mg Tablet,Delayed Release (Dr/Ec) 81 mg PO DAILY RF: 0 Discharge Orders: Discharge Order (Routine); Ordered 11/07/19 Ordered By: Jose Hernandez/Other Patient Handouts: A1C Admission Data Admit Date/Time: 11/02/19 15:11 Attending Provider: Jose Galvan Admit Provider: Mirian Sterling Primary Care Provider: Stevenson Zendejas III Other Providers: Mirian Sterling ; [facility] Coding Level of Care Code D/C Day Management >30 mins Diagnoses Stroke-like symptoms R29.90 Acute and chronic respiratory failure with hypoxia J96.21 COPD (chronic obstructive pulmonary disease) J44.9 CHF (congestive heart failure) I50.9 Hypertension I10 Hypercholesteremia E78.00 Osteoporosis M81.0 DVT prophylaxis Z29.9
== END 2019-11-07 14:26 | disposition home health service (06) | DRG 189 ==
LOC: ED 11:50 → SUATTDRO 15:11 → 2S 15:11 → 1E 11-03 09:11 → 2S 11-03 09:35